=== PATIENT | female | born 1945 | race Caucasian/White ===

== ENCOUNTER 2016-06-09 01:40 | Inpatient (IN) | payer OTHER, MEDICARE ==
[~2016-06-09] VITALS: Ht 157.5 cm; Wt 116.7 kg
[~2016-06-09 01:40] MED LIST: ALDACTONE25 MG PO; ATIVAN0.5 MG PO; ATROVENT HFA 121 PUF INH; BABY ASPIRIN CH81 MG PO; BENZONATATE200 MG PO; BUPROPION HCL300 MG PO; CALCIUM CARB PO; CETIRIZINE HCL10 MG PO; COLACE100 MG PO; DEXILANT60 MG PO; DILAUDID 4 MG TA4 MG PO; FOLIC ACID0.4 MG PO; FUROSEMIDE20 MG PO; FUROSEMIDE40 MG PO; HYDROXYCHLOROQ200 MG PO; IMIPRAMINE PAMOATE 75 MG PO; IMIPRAMINE25 MG PO; IPRATROPIUM BRO15 ML NASB; K-DUR 20MEQ TA20 MEQ PO; LEVOTHYROXINE0.05 MG PO; LIDODERM 5% PAT1 PAT TOP; LINZESS290 MCG PO; LYRICA150 MG PO; MYRBETRIQ25 MG PO; OXYBUTYNIN5 MG PO; PATADAY 2.5 ML2.5 ML OPH; SINGULAIR10 MG PO; SMZ-TMP 800 MG-1 TAB PO; THERA1 TAB PO; TIZANIDINE HCL4 M1 PO; TRAVATAN Z50 GTT/1 B OPH; TRAZODONE100 MG PO; TRAZODONE150 MG PO; TUMS500 MG PO; VENLAFAXINE HY150 MG PO; WELCHOL 625 MG625 MG PO
--- NOTE | 2016-06-09 01:49 | ED DYSPNEA/ASTHMA COMPLAINT ---
History of Present Illness General Chief Complaint: General Adult Stated Complaint: AMS AND DYSPNEA Source: patient, old records, EMS, W10 Exam Limitations: clinical condition Vital Signs & Intake/Output Vital Signs & Intake/Output Vital Signs Date Time Temp Pulse Resp B/P Pulse O2 O2 Flow FiO2 Ox Delivery Rate 06/10 315 101.0 06/10 315 144/67 06/09 0230 99 Aerosol Mask 06/10 227 99 Venti Mask 6.0L 06/09 216 98 Aerosol 6.0L Mask 06/09 213 101.0 117 24 110/62 100 Aerosol 6.0L Mask Allergies Coded Allergies: adhesive tape (UNKNOWN 06/09/16) Reconcile Medications Aspirin (Children's Aspirin) 81 MG TAB.CHEW 1 TAB PO DAILY HEART HEALTH ( Reported) BUPROPION HCL (Bupropion XL) 300 MG TAB.ER.24H 1 TAB PO DAILY DEPRESSION ( Reported) Calcium Carbonate (Tums) 500 MG CTB 1 TAB PO DAILY GI (Reported) CETIRIZINE HCL (Cetirizine HCl) 10 MG TABLET 1 TAB PO DAILY ALLERGIES ( Reported) Colesevelam Hydrochloride (Welchol) 625 MG TABLET 3 TAB PO BID HIGH CHOLESTROL (Reported) Dexlansoprazole (Dexilant) 60 MG CAP.DR.BP 1 CAP PO BID GI (Reported) Docusate Sodium (Colace) 100 MG CAPSULE 1 TAB PO DAILY STOOL SOFTENER ( Reported) Folic Acid 0.4 MG TAB 2 TAB PO DAILY VITAMIN (Reported) Furosemide 40 MG TAB 1 TAB PO DAILY WATER PILL (Reported) Hydromorphone (Dilaudid) 4 MG TABLET 1 TAB PO Q6-PRN PRN PAIN (Reported) Hydroxychloroquine Sulfate 200 MG TABLET 1 TAB PO BID ARTHRITIS (Reported) IMIPRAMINE HCL (Imipramine HCl) 25 MG TABLET 1 TAB PO DAILY ANTIDEPRESSENT ( Reported) Imipramine Pamoate (Imipramine Pm) 75 MG CAP 1 CAP PO AT BEDTIME DEPRESSION ( Reported) Ipratropium [place] (Atrovent HFA 12.9 GMS) 17 MCG/ACTUATION HFA.AER.AD 0.06 % INH BID BREATHING (Reported) Levothyroxine Sodium 50 MCG TABLET 1 TAB PO DAILY AC HYPOTHROID (Reported) Lidocaine HCl (Lidoderm Patch) 5 % PAT 1 PAT TOP DAILY PAIN (Reported) may wear up to 12 hours Linaclotide (Linzess) 290 MCG CAP 1 CAP PO DAILY IBS (Reported) Lorazepam (Ativan) 0.5 MG TAB 1 TAB PO AT BEDTIME SLEEP (Reported) Mirabegron (Myrbetriq) [address] TAB PO DAILY BLADDER (Reported) Montelukast Sodium (Singulair) 10 MG TABLET 1 TAB PO DAILY ALLERGIES ( Reported) MULTIVITAMINS,THERAPEUTIC (Thera) 1 TAB TAB 1 TAB PO DAILY SUPPLEMENT ( Reported) OLOPATADINE HCL (Pataday 2.5 Ml) 2.5 ML SUSHIL 1 GTT OPH DAILY EYE (Reported) Oxybutynin Chloride 5 MG TABLET 1 TAB PO BID OVERACTIVE BLADDER (Reported) POTASSIUM CHLORIDE (K-Dur) 20 MEQ TAB.ER.PRT 1 TAB PO BID VITAMIN (Reported) Pregabalin (Lyrica) 150 MG CAPSULE 1 CAP PO TID PAIN (Reported) Spironolactone (Aldactone 25 MG Tablet) 25 MG TABLET 0.5 TAB PO AT BEDTIME HTN (Reported) TIZANIDINE HCL (Tizanidine HCl) 4 MG TABLET 1 TAB PO TID MUSCLE SPASMS ( Reported) Travoprost (Travatan Z Oph Sushil 0.004% 2.5ML) 0.004 % DROPS 1 GTT OPH QPM DRY (Reported) TRAZODONE HCL (Trazodone HCl) 150 MG TAB 1 TAB PO QPM SLEEP (Reported) VENLAFAXINE HCL (Venlafaxine HCl ER) 150 MG CAP.ER.24H 225 MG PO DAILY DEPRESSION (Reported) Triage Nurses Notes Reviewed? yes Onset: Gradual Duration: hour(s): Timing: recent history Severity: severe Activities at Onset: none Prior Episodes/Possible Cause: occasional episodes Modifying Factors: Improves With: rest. Worsens With: movement. Associated Symptoms: cough, wheezing HPI: 70-year-old woman history COPD and CHF presents with dyspnea, wheezing for the past several hours. Per the medics, she was fine last night. In the middle the night, the staff noted that she was dyspneic, tachypnea, with an O2 sat of 71%. She also showed increased lethargy. She denies fever chest pain. She is otherwise well. Past History Travel History Traveled to [place] past 21 day No Medical History Any Pertinent Medical History? 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 No Review of Systems Review of Systems Constitutional: Reports: no symptoms. EENTM: Reports: no symptoms. Respiratory: Reports: no symptoms. Cardiovascular: Reports: no symptoms. GI: Reports: no symptoms. Genitourinary: Reports: no symptoms. Musculoskeletal: Reports: no symptoms. Skin: Reports: no symptoms. Neurological/Psychological: Reports: no symptoms. Hematologic/Endocrine: Reports: no symptoms. Immunologic/Allergic: Reports: no symptoms. All Other Systems: Reviewed and Negative Physical Exam Physical Exam Head: atraumatic, normal appearance Eyes: Bilateral: normal appearance. Ears, Nose, Throat: normal pharynx Neck: normal inspection, supple Respiratory: decreased breath sounds, accessory muscle use, wheezing, respiratory distress Cardiovascular: regular rate/rhythm Gastrointestinal: normal bowel sounds, soft, non-tender, no organomegaly Extremities: ulcerations on left medial malleolus, no sign of active infection. 2-3+ edema bilaterally. Neurologic/Psych: no motor/sensory deficits, awake, alert, oriented x 3 Skin: intact, normal color, warm/dry Core Measures ACS in differential dx? No Severe Sepsis Present: No Septic Shock Present: No Progress Differential Diagnosis: asthma, AMI, bronchitis, CHF, COPD, pneumonia Plan of Care: Orders Procedure Date/time Status LACTIC ACID 06/09 0446 Active BLOOD CULTURE 06/09 0150 Active ARTERIAL BLOOD GAS (GEN) 06/09 014 Complete BLOOD CULTURE 06/09 0146 Active TROPONIN LEVEL 06/09 0146 Complete LACTIC ACID 06/09 0146 Complete COMPREHENSIVE METABOLIC PANEL 06/09 0146 Complete CBC WITHOUT DIFFERENTIAL 06/09 014 Complete B-TYPE NATRIURETIC PEP (BNP) 06/09 014 Complete EKG 06/09 0142 Active Current Medications Sig/[place]ula Start time Last Medication Dose Stop Time Status Admin Vancomycin HCl 1,000 MG ONCE ONE 06/09 0400 AC Dextrose/Water 250 ML 06/09 0459 (D5W) Laboratory Tests 06/09/16 020: pH 7.41, pCO2 30 L, pO2 84, HCO3 19 L, ABG O2 Sat (Measured) 97.0, P-50 (Temp Corrected) N, Carboxyhemoglobin 0.2 L, O2 Concentration % 6L, O2 Delivery Method NEB RX, Anion Gap 14, Estimated GFR > 60, BUN/Creatinine Ratio 17.1, Glucose 94, Lactic Acid 2.8 H, Calcium 9.6, Total Bilirubin 0.5, AST 57 H, ALT 78 H, Alkaline Phosphatase 346 H, Troponin I 0.05, Ttc-O-Gszkvpqgpoi Pept 379 H, Total Protein 7.5, Albumin 4.2, Globulin 3.3, Albumin/Globulin Ratio 1.3, CBC w Diff MAN DIFF ORDERED, RBC 4.88, MCV 79.2 L, MCH 25.1 L, RDW 15.9 H, MPV 8.7, Gran % 91.0 H, Lymphocytes % 5.2 L, Monocytes % 1.9, Eosinophils % 1.5, Basophils % 0.4, Absolute Granulocytes 17.4 H, Segmented Neutrophils 89 H, Band Neutrophils 2, Absolute Lymphocytes 1.0 L, Lymphocytes 6 L, Monocytes 1 L, Absolute Monocytes 0.4, Eosinophils 2, Absolute Eosinophils 0.3, Absolute Basophils 0.1, Platelet Estimate ADEQUATE, Hypochromic-Microcytic 1+, Poikilocytosis 1+, Anisocytosis 1+, Microcytic Cells 1+, Ovalocytes 1+, PUBS MCHC 31.7 L, Phlebotomy Draw Site RIGHT RADIAL, Fld Total RBCs Counted 100 Microbiology 06/09 204 BLOOD: Blood Culture - RECD 06/09 199 BLOOD: Blood Culture - RECD Diagnostic Imaging: Viewed by Me: Radiology Read. Discussed w/RAD: Radiology Read. CXR Impression: atelectasis vs edema vs infiltrate vs low volumes... full report below. Initial ED EKG: normal axis, normal intervals, normal p-waves, normal QRS complex, normal sinus rhythm Comments: PATIENT: VITO SMITH PRESENT AGE: 70 PATIENT ACCOUNT NO: [id number] : 44 LOCATION: [facility] ORDERING PHYSICIAN: ZAFAR BANG MD SERVICE DATE: 06/09/16 EXAM TYPE: RAD - XRY-PORTABLE CHEST XRAY EXAMINATION: XR PORTABLE CHEST CLINICAL INFORMATION: Hypoxia COMPARISON: Chest x-ray 01/03/2014 TECHNIQUE: Portable AP view of the chest was obtained. FINDINGS: Markedly low lung volumes with linear bibasilar opacities that most likely reflect atelectasis. No definite pneumothorax. There is central vascular congestion and I cannot exclude mild interstitial edema. Nondiagnostic assessment of the cardiac silhouette given technique and low lung volumes. There are no acute osseous findings. Multiple old healed right-sided rib fractures. IMPRESSION: Limited study with markedly low lung volumes and probable bibasilar atelectasis. There is central vascular congestion and I cannot exclude mild interstitial edema. DICTATED BY: ADAL PARRA MD DATE/TIME DICTATED:06/09/16240 ROOFING SUPERINTENDENT:TYRELL DATE/TIME TRANSCRIBED:06/09/16240 CONFIDENTIAL, DO NOT COPY WITHOUT APPROPRIATE AUTHORIZATION. <Electronically signed in Other Vendor System> SIGNED BY: ADAL PARRA MD 06/09/16245 Departure Departure Disposition: STILL A PATIENT Condition: Stable Clinical Impression Primary Impression: COPD exacerbation Secondary Impressions: CHF (congestive heart failure), Lactic acidosis, Sepsis Referrals: DERICK MARTINEZ MD Departure Forms: Customer Survey General Discharge Information Admission Note Spoke With: ALEXANDRIA HERNANDEZ MD Documentation of Exam: Documentation of any treatments & extenuating circumstances including Concerns Regarding Discharge (functional status, medication knowledge or non-compliance, living conditions, etc.) that warrant an admission rather than observation: Pt with copd, perhaps component of chf, with profound hypoxia at ecf, elevated wbc count, c/w sepsis.... pt merits abx, continuous 02 monitoring, rule out, nebs, steroids, lasix. Critical Care Note Critical Care Note Critical Care Time: 30-74 min
[2016-06-09 02:14] LABS: ABSOLUTE BASOPHIL COUNT 0.1 /CUMM (0.0-0.2); ABSOLUTE EOSINOPHIL COUNT 0.3 /CUMM (0.0-0.7); ABSOLUTE GRANULOCYTE CT 17.4 /CUMM (1.4-6.5); ABSOLUTE MONOCYTE COUNT 0.4 /CUMM (0.10-0.60); BASOPHIL % 0.4 % (0.0-2.0); EOSINOPHIL % 1.5 % (0-5); HEMATOCRIT 38.7 % (37-47); MEAN CORPUSCULAR HGB 25.1 PG (27.0-31.0); MEAN CORPUSCULAR HGB CONC 31.7 G/DL (33.0-37.0); MEAN CORPUSCULAR VOLUME 79.2 FL (81.0-99.0); MEAN PLATELET VOLUME 8.7 FL (7.4-10.4); PLATELET COUNT 262 /CUMM (130-400); RBC DISTRIBUTION WIDTH 15.9 % (11.5-14.5); RED BLOOD CELL CT 4.88 /CUMM (4.20-5.40); WHITE BLOOD CELL COUNT 19.1 /CUMM (4.8-10.8)
--- NOTE | 2016-06-09 02:21 | NUR ---
RESPIRATORY CALLED AND AT BEDSIDE ADMINISTERING NEB TREATMENT.
--- NOTE | 2016-06-09 02:21 | NUR ---
PT KIMOA FROM [facility] C/O AMS/DSYPNEA. PT ARRIVED ON NEB TREATMENT PER MEDIC PT WENT TO BED AROUND 2230 A&OX3, FOUND AT 0030 WITH A&0X1. PT HAD DIFFICULTY BREATHING WITH 02 SAT RA LOW 80'S. PT HAD 1 NEB TREATMENT EN ROUTE. PT HAS HX OF COPD, ASTHMA AND NEUROPATHY. PER RN ROBBIE FROM [facility] PT HAS HX OF MRSA WITH NO OPEN WOUNDS, PT ARRIVED WITH RED MATIAS/NEW FORMLY SCABS ON LEFT ARM WITH BILATERAL LEG WOUNDS DRAINING WRAPPED IN WILL WRAP. PT IS NORMALLY INDEPEPDENT AT [facility] WITH ASSIST OF WALKER. DR BANG AT BEDSIDE FOR EVAL , THIS RN ESTABLISHED 2 IV ACCESS SITES. SITE #1 RH #22 AND LAC #20. BLOOD CULTURES AND LABS DRAWN AND SENT BY JASWANT ANDERSON. (LAV, BLUE, MROEIRA, SST)
--- NOTE | 2016-06-09 02:21 | NUR ---
PT MEDICATED WITH 125MG SOLU MEDROL, 40MG LASIX, 500MG ZITHRO INFUSING AT 250ML/HR, AND 1G ROCPEHIN PER EMAR.
--- NOTE | 2016-06-09 02:46 | RADIOLOGY REPORT ---
EXAMINATION: XR PORTABLE CHEST CLINICAL INFORMATION: Hypoxia COMPARISON: Chest x-ray 01/03/2014 TECHNIQUE: Portable AP view of the chest was obtained. FINDINGS: Markedly low lung volumes with linear bibasilar opacities that most likely reflect atelectasis. No definite pneumothorax. There is central vascular congestion and I cannot exclude mild interstitial edema. Nondiagnostic assessment of the cardiac silhouette given technique and low lung volumes. There are no acute osseous findings. Multiple old healed right-sided rib fractures. IMPRESSION: Limited study with markedly low lung volumes and probable bibasilar atelectasis. There is central vascular congestion and I cannot exclude mild interstitial edema.
--- NOTE | 2016-06-09 02:59 | NUR ---
PT MEDICATED WITH IV TLYENOL FOR TEMP 101.0. RN VENICE AND MST SONNY ROLLED AND CHANGED PT, PT PLACED ON PADS. PTS SKIN ON BACK SIDE IS WNL, PT HAS MULTIPLE DIME AND QUARTER SIZE WOUNDS TO BILATERAL LEGS THAT WERE WRAPPED IN WILL BANDAGES WEEPING.
--- NOTE | 2016-06-09 04:18 | NUR ---
DR SMITH IN FOR EVAL
--- NOTE | 2016-06-09 04:40 | NUR ---
PT SIGNED IPAD FOR CRUTCHES AND DEMONSTRATED SHE CAN USE THEM BEFORE PT LEAVES. PT FELT NAUSEAOUS AND VOMITTED IN BUCKET IN RM. THIS RN MEDICATED PT WITH ZOFRAN OTD 4MG PER EMAR. PT VERBALIZED D/C INSTRCUTIONS, SCRIPTS SENT TO [facility] FOR IBUPROFEN, PERCOCET, AND ZOFRAN.
--- NOTE | 2016-06-09 04:47 | NUR ---
HOUSE STAFF IN RM , PT HAS (2) 1 QUARTER AND 1 DIME SIZE OPEN WOUNDS ON PTS RIGHT PRIETO. PT HAS (1) SIZE OF 2 QUARTERS ON LEFT PRIETO.
--- NOTE | 2016-06-09 05:41 | History & Physical ---
THAO MIN MD 06/09/16 0511: General Information and HPI MD Statement: I have seen and personally examined VITO SMITH and documented this H&P. The patient is a 70 year old F sent in from [place] for evaluation of hypoxia. Source of Information: patient Exam Limitations: clinical condition History of Present Illness: 70 year old woman with significant past medical history of CHF, COPD, CAD, and Bipolar disorder sent in from [place] for evaluation of altered mental status and hypoxia. History of present illness unobtainable from patient due to clinical condition. W10 and EMS records demonstrate hypoxia to "low 80s". Patient is reportedly independent at baseline and ambulates with a walker. Currently she is not oriented to person, place, or time. Review of systems is mostly unobtainable, she reports some pain with urination for the past day but otherwise is not answering questions appropriately. PMHx: CHF, COPD, CAD, Bipolar disorder, HONG, Hypothyroidism, Asthma, W[place], PVD, HONG, PE s/p IVC filter, Chronic low back pain s/p neurostimulator, hypertension, rheumatoid arthritis Allergies/Medications Allergies: Coded Allergies: adhesive tape (UNKNOWN 06/09/16) Past History Travel History Traveled to [facility] past 21 day No Medical History Neurological: NONE EENT: NONE Cardiovascular: CAD, CHF, chronic venous insuff, hypertension, myocardial infarction, PVD, W[place] Respiratory: asthma, COPD, obstructive sleep apnea, pulmonary embolism Gastrointestinal: NONE Hepatic: NONE Renal: NONE Musculoskeletal: chronic back pain, rheumatoid arthritis Psychiatric: bipolar disease Endocrine: hypothyroidism Blood Disorders: NONE Cancer(s): NONE 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 Exam & Diagnostic Data Last 24 Hrs of Vital Signs/I&O Vital Signs Date Time Temp Pulse Resp B/P Pulse O2 O2 Flow FiO2 Ox Delivery Rate 06/09 0446 100.4 06/09 0418 100.8 06/09 0316 101.0 06/09 0316 144/67 06/09 0230 99 Aerosol Mask 06/09 0228 99 Venti Mask 6.0L 06/09 216 98 Aerosol 6.0L Mask 06/09 0214 101.0 117 24 110/62 100 Aerosol 6.0L Mask Intake & Output 06/09 0800 06/09 0000 06/08 1600 Intake Total Output Total Balance Patient 117.934 kg Weight Physical Exam General Appearance Moderate Distress Skin Multiple venous wounds on lower extremities, Chronic lower extremity skin changes HEENT Atraumatic, PERRLA, EOMI, Mucous Membr. moist/pink Neck Supple Cardiovascular Regular Rate, Normal S1, Normal S2, No Murmurs, Distant heart sounds Lungs minimal bibasilar crackles, limited exam secondary to body habitus Abdomen Normal Bowel Sounds, Soft, No Tenderness, No Hepatospenomegaly, No Masses Neurological Disoriented, awake, in moderate distress, no obvious neurologic deficits, CN II - XII grossly intact Extremities No Clubbing, No Cyanosis, No Edema, Normal Pulses, No Tenderness/ Swelling Vascular Normal Pulses, Pulses Symmetrical Last 24 Hrs of Labs/Gene: Laboratory Tests 06/09/16 0505: Lactic Acid Pending 06/09/16 0200: pH 7.41, pCO2 30 L, pO2 84, HCO3 19 L, ABG O2 Sat (Measured) 97.0, P-50 (Temp Corrected) N, Carboxyhemoglobin 0.2 L, O2 Concentration % 6L, O2 Delivery Method NEB RX, Anion Gap 14, Estimated GFR > 60, BUN/Creatinine Ratio 17.1, Glucose 94, Lactic Acid 2.8 H, Calcium 9.6, Total Bilirubin 0.5, AST 57 H, ALT 78 H, Alkaline Phosphatase 346 H, Troponin I 0.05, Anu-Q-Vxgulgkwhzo Pept 379 H, Total Protein 7.5, Albumin 4.2, Globulin 3.3, Albumin/Globulin Ratio 1.3, CBC w Diff MAN DIFF ORDERED, RBC 4.88, MCV 79.2 L, MCH 25.1 L, RDW 15.9 H, MPV 8.7, Gran % 91.0 H, Lymphocytes % 5.2 L, Monocytes % 1.9, Eosinophils % 1.5, Basophils % 0.4, Absolute Granulocytes 17.4 H, Segmented Neutrophils 89 H, Band Neutrophils 2, Absolute Lymphocytes 1.0 L, Lymphocytes 6 L, Monocytes 1 L, Absolute Monocytes 0.4, Eosinophils 2, Absolute Eosinophils 0.3, Absolute Basophils 0.1, Platelet Estimate ADEQUATE, Hypochromic-Microcytic 1+, Poikilocytosis 1+, Anisocytosis 1+, Microcytic Cells 1+, Ovalocytes 1+, PUBS MCHC 31.7 L, Phlebotomy Draw Site RIGHT RADIAL, Fld Total RBCs Counted 100 Microbiology 06/09 0506 URINE ROUT: Urine Culture - ORD 06/09 0205 BLOOD: Blood Culture - RECD 06/09 020 BLOOD: Blood Culture - RECD Diagnostic Data CXR Results Limited study with markedly low lung volumes and probable bibasilar atelectasis. There is central vascular congestion cannot exclude mild interstitial edema. Assessment/Plan Assessment: 70 year old woman with multiple medical problems sent in from evaluation from [place] for altered mental status and dyspnea. Collateral information obtained from nursing staff reveals that patient is independent and ambulates with assistance of a walker at the [place] at baseline. She was observed to be confused with breathing difficulty with a reported pulse ox of "low 80s" for which she was sent in to the [place] ED for evaluation. Vital signs on initial evaluation are significant for temp 101.8, HR 117, RR 24, BP 110-114/62-67, pO2 98-100% on 6.0L via VentiMask. Physical examination demonstrates an obese elderly woman in moderate distress not oriented to person/place/time with distant heart sounds and bibasilar crackles with a nontender abdomen and multiple bilateral lower extremity wounds with skins changes and a mild rash. CBC is significant for leukocytosis without bands and serum chemistries are within normal limits. Lactic acid 2.8, Troponin 0.05, AST/ ALT 57/78, ALK 346, BNP 379. ABG pH 7.41/ CO2 30 / O2 84 / HCO3 19. CXR is limited with markedly low lung volumes and bibasiler atelectasis and central vasculr congestion possibly suggestive of interstitial edema. History of present illness is limited due to patients clinical condition, but objective observation demosntrates that patient meets Criteria for SIRS/Sepsis of unknown origin. Patient received multiple breathing treatments, intravenous steroids, lasix, and multiple intravenous antibiotics in the ED. Patient is to be admitted to the intensive care unit for futher evaluation and care. SIRS/Sepsis/Metabolic Encephalopathy Reportedly hypoxic to "low 80s" in the field. Saturating adequately on 6.0L supplemental oxygen. ABG demonstrates respiratory compensation without any overt acidosis. CXR is indeterminant for any active infectious process. Transaminases are mildly elevated, however patient has a history of a cholecystectomy. Patient complains of mild urinary discomfort. Rash present on lower extremities with multiple open wounds may possible be source of infection. -Intensive Care unit -RUQ Ultrasound -XR right ankle -XR left tibia/fibula -Vancomycin 1g IV Daily -Blood/Urine Cutures -Wound consult -Trend Lactic Acid until normalizes -F/U Lipase, CPK, UA History of Congestive Heart Failure -Strict I&Os -Hold Lasix -Spironolactone 12.5mg PO QHS History of COPD Patient of Dr. Hassan. Not currently in exacerbation. No wheezing. -TRC -Albuterol/Atrovent -No steroids Hypertension - monitor for unstable blood pressures Hyperlipidemia - Welchol 625mg 3 TAB PO BID History of Pulmonary Embolism s/p IVC Filter - stable Bipolar Disorder - Holding psych meds, restart as tolerated CAD/Hx of [place] - Aspirin 81mg PO Daily Hypothyroidism - Levvothyroxin 50mcg PO Daily Rheumatoid Arthritis - Hydroxychloroquine 200mg PO BID Asthma -Cetirizine 10mg PO Daily, Singular Chronic low back pain s/p Neurostimulator - Lidocaine Patch Pain Plan - Acetaminophen Bowel Regimen - Colace DVT PPx - Heparin Diet - NPO Code Status - DNR/DNI As Ranked By This Provider Problem List: 1. Sepsis 2. Lactic acidosis Core Measures/Miscellaneous Acute Coronary Syndrome ACS Diagnosis: No Cerebrovascular Accident CVA/TIA Diagnosis: No Congestive Heart Failure CHF Diagnosis: No Venous Thromboembolism VTE Risk Factors: Acute medical illness, Age > 40, Obesity No [facility] VTE prophylaxis d/t: LE Injury, current No VTE Pharm Prophylaxis d/t: No contraindications VTE Diagnosis: No VTE Type: NONE VTE Confirmed by (Test): NONE Severe Sepsis Severe Sepsis Present: No Septic Shock Septic Shock Present: No Miscellaneous Documentation Attending Case Discussed With: ALEXANDRIA HERNANDEZ MD Primary Care Physician: MARA HANSEN MD Patient sees these Specialists Dr. Sonya Gottlieb Level of Patient Care: Critical Care (CRI) DANILO DUARTE 06/09/16 0540: General Information and HPI Allergies/Medications Home Med list Aspirin (Children's Aspirin) 81 MG TAB.CHEW 1 TAB PO DAILY HEART HEALTH ( Reported) Brinzolamide/Brimonidine Tart (Simbrinza 1%-0.2% Eye Drops) 1 %-0.2 % DROPS.SUSP 1 DROP TOP BID EYE (Reported) BUPROPION HCL (Bupropion XL) 300 MG TAB.ER.24H 1 TAB PO DAILY DEPRESSION ( Reported) CETIRIZINE HCL (Cetirizine HCl) 10 MG TABLET 1 TAB PO DAILY ALLERGIES ( Reported) Dexlansoprazole (Dexilant) 60 MG CAP.DR.BP 1 CAP PO BID GI (Reported) Docusate Sodium (Colace) 100 MG CAPSULE 1 TAB PO DAILY STOOL SOFTENER ( Reported) Folic Acid 0.4 MG TAB 2 TAB PO DAILY VITAMIN (Reported) Furosemide 40 MG TAB 1 TAB PO DAILY WATER PILL (Reported) Hydroxychloroquine Sulfate 200 MG TABLET 1 TAB PO BID ARTHRITIS (Reported) IMIPRAMINE HCL (Imipramine HCl) 25 MG TABLET 1 TAB PO DAILY ANTIDEPRESSENT ( Reported) Imipramine Pamoate (Imipramine Pm) 75 MG CAP 1 CAP PO AT BEDTIME DEPRESSION ( Reported) Ipratropium Hudson (Atrovent HFA 12.9 GMS) 17 MCG/ACTUATION HFA.AER.AD 0.06 % INH BID BREATHING (Reported) Levothyroxine Sodium 50 MCG TABLET 1 TAB PO DAILY AC HYPOTHROID (Reported) Linaclotide (Linzess) 290 MCG CAP 1 CAP PO DAILY IBS (Reported) Lorazepam (Ativan) 0.5 MG TAB 1 TAB PO AT BEDTIME SLEEP (Reported) Mirabegron (Myrbetriq) [address] TAB PO DAILY BLADDER (Reported) Montelukast Sodium (Singulair) 10 MG TABLET 1 TAB PO DAILY ALLERGIES ( Reported) Morphine Sulfate (Morphine Sulfate ER) 30 MG TABLET.ER 1 TAB PO Q12 PAIN ( Reported) MULTIVITAMINS,THERAPEUTIC (Thera) 1 TAB TAB 1 TAB PO DAILY SUPPLEMENT ( Reported) POTASSIUM CHLORIDE (K-Dur) 20 MEQ TAB.ER.PRT 1 TAB PO BID VITAMIN (Reported) Pregabalin (Lyrica) 300 MG CAPSULE 1 CAP PO AT BEDTIME NEUROPATHY (Reported) Pregabalin (Lyrica) 75 MG CAPSULE 1 CAP PO BID NEUROPATHY (Reported) 6 AM AND 5 PM Sennosides/Docusate Sodium (Senokot-S Tablet) 8.6 MG-50 MG TABLET 1 TAB PO DAILY CONSTIPATION (Reported) AT 9 AM Spironolactone (Aldactone) 25 MG TABLET 1 TAB PO AT BED TIME WATER PILL ( Reported) Tizanidine HCl 4 MG TABLET 1 TAB PO BID MUSCLE SPASMS (Reported) MORNING AND NOON Tizanidine HCl 4 MG TABLET 2 TAB PO QPM MUSCLE SPASMS (Reported) Travoprost (Travatan Z Oph Donna 0.004% 2.5ML) 0.004 % DROPS 1 GTT OPH QPM DRY (Reported) TRAZODONE HCL (Trazodone HCl) 150 MG TAB 1 TAB PO QPM SLEEP (Reported) Venlafaxine HCl (Effexor XR) 150 MG CAP.ER.24H 2 CAP PO DAILY DEPRESSION ( Reported) Resident Review Statement Resident Statement: examined this patient, discussed with training intern, agreed with training intern Other Findings: Patient is 70 year old female with PMH of CHF, rheumatoid arthritis, CAD, hypothyroidism, chronic pain syndrome, mood disorder, anxiety disorder, dysuria, major depressive disorder, COPD, pancreatitis, was brought from [facility] with chief complain of altered mental status and shivering. In ER, patient spiked a fever of 101 and was tachyoenic, her labs were significant for leukocytosis of 19 and she had elevated lactic acid of 2.8. In ER, she was given Ceftriaxone, Azithromycin and Vancomycin in addition to loading dose of solumedrol and 40 IV lasix. Labs and Vitals as above Physical exam: Deep wounds appreciated on medial aspect of right ankle and jesus of left tibia. B/l bibasilar crackles. Distant S1, S2 due to body habitus. CXR: Limited study with markedly low lung volumes and probable bibasilar atelectasis. There is central vascular congestion and I cannot exclude mild interstitial edema. Assessment and Plan Patient has leukocytosis and fever due to a primary source of infectious which could be due to infected b/l lower extremety skin wounds, pneumonia or UTI ( as she reports burning micturation since yesterday, UA pending). Will start her on IV vancomycin daily. Trend her CBC for leukocytosis. Will obtain xray of b/l lower extremeties to evaluate for underlying osteomyelitis. Will follow up BC, Urine culture and rapid flu. WIll get wound consult in am. Elevated Alkaline phosphatase- could be secondary to any biliary pathology v/s osteomyelitis. Will obtain limited right upper quadrant usg to evaluate for CBD stone etc. Patient has a history of Anxiety and Major depressive disorder. She was still confused in ER during her encounter, please consider restarted her psyc meds once she is more awake and alert. Hx of CHF- Patient takes 40 PO lasix at home, holding off lasix right now due to uncertain volume status as patient might go into septic shock due to current sepsis. Will reasses her in am and consider restarting lasix. Will continue Hydroxychloroquin 200 mg tab for RA Will continue levothyroxine 50 mcg for hypothyroidism Patient takes lyrica for chronic pain, consider restarting in am if patient more alert For symptomatic SOB, TRC nebs as needed. DVT ppx SC heprin Patient is DNR/DNI MARYALEXANDRIA DAVIS 06/09/16 0555: Attending MD Review Statement Attending Statement Attending MD Statement: examined this patient, discuss w/resident/PA/[employer], agreed w/resident/PA/[employer], reviewed EMR data (avail), reviewed images, amended to note Attending Assessment/Plan: C: AMS, SOB PMH : Chronic pain, mood disorder, anxiety, HFrEF, COPD, HTN, hypothyroidism, CAD Patient was brought in from [facility] for altered mental status, shaking, low oxygen saturation. Patient currently on Ventimask and does not provide details. Vitals: Tmax 101, tachycardic at 117, tachypneic at 24, blood pressure 110/62, saturating 100% on 50% Ventimask. On examination: Alert, mucosa dry, JVD cannot be appreciated secondary to short neck, obese, difficult to auscultate but bibasilar crackles. Right upper quadrant abdominal tenderness, no Quiroz's sign, no guarding rigidity, bowel sounds present. CVS: S1-S2, RRR. Bilateral lower extremity has chronic venous stasis changes, was wrapped in compression at time of arrival. Left lower extremity has open wound on medial aspect jesus of tibia with evidence of cellulitis. Right lower extremity has ? Venous ulcer on medial aspect of ankle. Peripheral pulses perfusion normal. Labs: WBC 19.1, neutrophils 91%, band 2, hemoglobin 12.3, platelets 262, creatinine 0.7, lactic acid 2.8, AST 50, ALT 78, alkaline phosphatase 346, proBNP 379 CXR: Limited study with markedly low lung volumes and probable bibasilar atelectasis. There is central vascular congestion and I cannot exclude mild interstitial edema. A and P - Sepsis: Fever, leukocytosis, mildly elevated lactate, tachypnea, tachycardia, most likely bilateral lower extremity cellulitis with chronic wound is likely source of infection. Patient became tachypneic but chest x-ray does not reveal any consolidation. Patient has mild right upper quadrant tenderness, urinary frequency and burning: Another suspicion source. Blood culture, UA urine culture , right upper quadrant limited ultrasound to rule out choledocholithiasis. Trend lactate, continue vancomycin, wound care consult. X-ray of right ankle, left tibia-fibula. Add CPK and lipase to sample and lab. -Metabolic encephalopathy: Probably secondary to infection - Metabolic acidosis - Patient has decreased level of sensorium, along with sepsis: She will benefit close monitoring any ICU -patient has basilar crackles on examination, chest x-ray cannot rule out interstitial edema. proBNP is not significantly elevated at this time. Continue gentle hydration with 50 mL NS/hour, watch for volume status. Hold his scheduled Lasix, would benefit from IV Lasix as and when required, according to clinical assessment. Patient had history of heart failure with reduced ejection fraction. -Needs detailed med reconciliation, AMS is better as most of them are psychotropic and sedating medications. Continue thyroxine, hydroxychloroquine, folic acid, PPI, aspirin for now. - History of COPD: Currently no active wheezing, less Likely exacerbation, TRC and has required nebulization with albuterol and Atrovent, no IV steroids for now. - DNR, DNI. TTS 30 min
--- NOTE | 2016-06-09 06:38 | NUR ---
WOUND CARE PERFORMED BY SHIRLEY MILLARD PER HOUSE STAFF AND SHIRLEY HOPKINS DRESSED WOUNDS WITH BACITRACIN TELFA AND KRULEX. RIGHT LOWER EXTREMITY ANTERIOR (1) DIME SIZE (2) QUARTER SIZE. LEFT LOWER EXTREMITY ANTERIOR (1) SIZE OF 2 QUARTERS.
--- NOTE | 2016-06-09 06:47 | NUR ---
PT MEDICATED WITH 5000UNIT HEPARIN SC INJECTION IN THE RIGHT ABD. NS LITER #1 @ 50ML/HR INFUSING.
--- NOTE | 2016-06-09 06:51 | NUR ---
PT MEDICATED WITH 0.5MG SYNTHROID AND 20MG PRILOSEC PER EMAR.
--- NOTE | 2016-06-09 07:46 | NUR ---
PT TRANSFERRED TO ICU ON MONITOR WITH THIS RN. ALL PAPERWORK AND BELONGINGS SENT. CLINICAL STATUS UNCHANGED.
[2016-06-09 08:55] VITALS: BP 112/60
--- NOTE | 2016-06-09 09:48 | NUR ---
0830: RECEIVED PT FROM ER AT 0800. ALERT, ORIENTED X3. SLIGHTLY DROWSY. ON 50% VENTI MASK, LUNGS CLEAR, DIMINISHED AT BASES. SAT 94%. DENIES COUGH OR SOB. NSR/ST ON MONITOR. AFEBRILE. B/P STABLE. ABDOMEN OBESE, HYPOACTIVE BOWEL SOUNDS, PER PT SHE HAD A BM 3-3 WITH THE HELP OF A SUPPOSITORY, PT IS ON CHRONIC PAIN MEDICATIONS. NPO FOR SWALLOW EVAL. INCONTINENT OF URINE, PADS PLACED. BLE DRESSINGS TAKEN DOWN AND WOUNDS MEASURED, LEFT PRIETO 1.5 X 1.6, SMALL OPEN AREA TO UPPER PRIETO, LOOKS LIKE A POPPED WATER BLISTER, RIGHT ANKLE 2.5 X 2.0, RIGHT PRIETO 1.4 X 0.6, ALSO SMALL OPEN AREA THAT LOOKES LIKE A POPPED WATER BLISTER. ADAPTEC, TELFA, AND KERLIX PLACED, WOUND CARE EMAIL SENT. NO ALPS PLACED AT THIS TIME DUE TO WOUNDS, SIZEWISE MATTRESS ORDERED, BOTTOM INTACT. ABDOMINAL AND GROIN FOLDS EXAMINED, SMALL RED AREA TO LEFT ABDOMINAL FOLD. #22 RH AND #[address] NS @ 50 ML/HR. ABDOMINAL ULTRASOUND SCHEDULED FOR 11 AM. PT ORIENTED TO ROOM AND CALL ROSS. BED ALARM IN PLACE. PER [place] PT IS UTD ON FLU VACCINE. WILL MONITOR.
[2016-06-09 09:51] LABS: ABSOLUTE BASOPHIL COUNT 0 /CUMM (0.0-0.2); ABSOLUTE EOSINOPHIL COUNT 0 /CUMM (0.0-0.7); ABSOLUTE GRANULOCYTE CT 26.6 /CUMM (1.4-6.5); ABSOLUTE LYMPH COUNT 0.5 /CUMM (1.2-3.4); ABSOLUTE MONOCYTE COUNT 0.6 /CUMM (0.10-0.60); BASOPHIL % 0 % (0.0-2.0); EOSINOPHIL % 0 % (0-5); GRANULOCYTE % 96.1 % (42.2-75.2); MEAN CORPUSCULAR HGB 25.5 PG (27.0-31.0); MEAN CORPUSCULAR HGB CONC 32.2 G/DL (33.0-37.0); MEAN CORPUSCULAR VOLUME 79.1 FL (81.0-99.0); PLATELET COUNT 218 /CUMM (130-400); RBC DISTRIBUTION WIDTH 15.6 % (11.5-14.5); RED BLOOD CELL CT 4.42 /CUMM (4.20-5.40); WHITE BLOOD CELL COUNT 27.7 /CUMM (4.8-10.8)
--- NOTE | 2016-06-09 09:54 | NUR ---
+ BLOOD CULTURES DRAWN 3-4, 1 SET OF 2 GROWING GRAM + COCCI IN PAIRS AND CHAINS, HOUSESTAFF AWARE, SEE CRITICAL LAB VALUE DOCUMENTATION.
--- NOTE | 2016-06-09 10:19 | NUR ---
FLU SWAB DONE AND SENT BY THIS RN
--- NOTE | 2016-06-09 10:23 | NUR ---
TROPONIN WENT FROM 0.05 TO 0.14. MD SEAY AWARE.
--- NOTE | 2016-06-09 10:55 | NUR ---
STAT PT/INR DRAWN AND SENT BY THIS RN
--- NOTE | 2016-06-09 10:57 | RADIOLOGY REPORT ---
EXAMINATION: XR TIBIA AND FIBULA, LEFT CLINICAL INFORMATION: 70-year-old woman with deep venous ulcer over the anterior tibia. Assess for osteomyelitis. COMPARISON: None TECHNIQUE: AP and lateral views of the left tibia and fibula were obtained. FINDINGS: There is no evidence of acute fracture. Alignment remains anatomic. There is prominent soft tissue edema and swelling. However, no focal abnormal periosteal reaction, osteolysis, or soft tissue gas is seen to suggest osteomyelitis. IMPRESSION: No radiographic evidence of osteomyelitis.
--- NOTE | 2016-06-09 11:02 | RADIOLOGY REPORT ---
EXAMINATION: XR ANKLE, RIGHT CLINICAL INFORMATION: 70-year-old woman with deep venous ulcer on medial side of ankle. Evaluate for osteomyelitis. COMPARISON: None TECHNIQUE: AP, lateral, and mortise views of the right ankle. FINDINGS: There is no evidence of acute fracture. Alignment remains anatomic. There is diffuse soft tissue swelling and edema over the medial malleolus. On the lateral film, there is some cortical irregularity seen posteriorly that may represent mild periosteal reaction. In addition, on the oblique film, there is some rarefication of osseous matrix over the medial malleolus and the cortex itself is not well seen. There is no soft tissue gas. IMPRESSION: Indistinctness of the cortex over the medial malleolus and possible periosteal reaction both increase suspicion for possible osteomyelitis in the region of the patient's deep venous ulcer. Further assessment with 3 phase bone scan or contrast-enhanced MRI could provide a higher level of specificity.
--- NOTE | 2016-06-09 11:32 | NUR ---
ULTRASOUND AT BEDSIDE FOR ABDOMINAL ULTRASOUND. PT PLACED ON 5L NC AT THIS TIME BY RT SELF
--- NOTE | 2016-06-09 11:42 | PN- Resident CRCU ---
GERHARD MURO 06/09/16 1137: Subjective HPI/CRCU Issues: 1. Sepsis most likely secondary to possible osteomyelitis and cellulitis of right ankle vs HCAP. Blood cultures 2 are growing gram-positive cocci in pairs and chains. Respiratory system could be another source of sepsis. Chest x-ray not very impressive 2. Acute hypoxic respiratory failure requiring 6 L of oxygen initially and later on on 50% Ventimask. Differentials are either PE or HCAP 24 Hour Events: Patient is alert, awake and oriented. Her vitals are stable. Now she is on 5 L of oxygen via nasal cannula and oxygen saturation is 94%. She is not complaining of any chest pain or discomfort, nausea, vomiting, abdominal pain, any pain or burning upon micturition. Objective Vital Signs & I&O Last 8 Hrs of Vitals and I&O: Intake & Output 06/09 1600 Intake Total Output Total Balance Patient 259 lb Weight Exam General Appearance: alert, awake, obese Ears, Nose, Throat: dry mucous membranes Neck: supple Respiratory: lungs clear, decreased air entry bilaterally Cardiovascular: regular rate/rhythm Gastrointestinal: normal bowel sounds, soft, non-tender Extremities: 2 small venous ulcers on left leg and 1 small circular wound on medial malleolus of right ankle with surrounding erythema, warmth and tenderness. Cranial Nerves: normal speech Current Medications: Current Medications Sig/[place] Start time Last Medication Dose Route Stop Time Status Admin Acetaminophen 650 MG Q8P PRN 06/09 0545 AC PO Acetaminophen 1,000 MG ONCE ONE 06/09 0315 DC 06/09 N/A 1 UNIT IV 06/09 0329 0316 Acetaminophen 0 .STK-MED ONE 06/09 0255 DC IV Albuterol Sulfate 3 ML EVERY 4 HRS/AWAKE 06/09 1200 AC 06/09 INH 1101 Albuterol Sulfate 3 ML ONCE ONE 06/09 0215 DC 06/09 INH 06/09 0216 0216 Albuterol Sulfate 3 ML ONCE ONE 06/09 0215 DC 06/09 INH 06/09 0216 0216 Albuterol Sulfate 3 ML ONCE ONE 06/09 0145 DC 06/09 INH 06/09 0146 0210 Aspirin 81 MG DAILY 06/09 1000 AC PO Azithromycin 500 MG ONCE ONE 06/09 0200 DC 06/09 Dextrose/Water 250 ML IV 06/09 0259 0226 Ceftriaxone Sodium 0 .STK-MED ONE 06/09 0202 DC .ROUTE Ceftriaxone Sodium 1,000 MG ONCE ONE 06/09 0145 DC 06/09 IV 06/09 0146 0226 Folic Acid 1 MG DAILY 06/09 1000 AC PO Furosemide 0 .STK-MED ONE 06/09 0202 DC IV Furosemide 40 MG ONCE ONE 06/09 0200 DC 06/09 IV 06/09 0201 0226 Heparin Sodium 0 .STK-MED ONE 06/09 0644 DC (Porcine) .ROUTE Heparin Sodium 5,000 UNIT Q8 06/09 0600 AC 06/09 (Porcine) SC 0648 Hydroxychloroquine 200 MG BID 06/09 1000 AC Sulfate PO Ipratropium Foley 2.5 ML EVERY 4 HRS/AWAKE 06/09 1200 AC 06/09 INH 1101 Ipratropium Foley 2.5 ML ONCE ONE 06/09 0145 DC 06/09 INH 06/09 0146 0209 Ketorolac 15 MG Q8P PRN 06/09 0545 AC Tromethamine IV Levothyroxine Sodium 0.05 MG DAILY AC 06/09 0700 AC 06/09 PO 0651 Methylprednisolone 0 .STK-MED ONE 06/09 0202 DC .ROUTE Methylprednisolone 125 MG ONCE ONE 06/09 0145 DC 06/09 IV 06/09 0146 0226 Omeprazole 20 MG DAILY AC 06/09 0700 AC / PO 0651 Omeprazole 0 .STK-MED ONE 06/09 0644 DC PO Potassium Chloride 10 MEQ Q1H 06/09 1045 DC 06/09 IV /04 1146 1113 Sodium Chloride 500 ML BOLUS ONE 06/09 1145 AC / IV /04 1244 1157 Sodium Chloride 1,000 ML Q20H 06/09 0615 AC / IV 0648 Vancomycin HCl 1,000 MG DAILY@0430 /05 0430 AC Dextrose/Water 250 ML IV Vancomycin HCl 0 .STK-MED ONE 06/09 0411 DC .ROUTE Vancomycin HCl 1,000 MG ONCE ONE 06/09 0400 DC 06/09 Dextrose/Water 250 ML IV 06/09 0459 0423 Antibiotics Antibiotic: vancomycin Day #: 1 IV/PO? IV If IV, Change to PO? No Results Results: Gram-positive cocci in pairs and chains Cultures: Culture: blood culture Date: 06/09/16 Radiology Findings: Left tibiofibular x-ray and right ankle x-ray was done. Right ankle x-ray showed findings suggestive of possible osteomyelitis. 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 Sepsis most likely secondary to cellulitis and possible underlying osteomyelitis of right ankle. Other possibility could be sepsis secondary to pneumonia vs UTI. Patient has history of frequent urinary issues in past requiring PICCs. Blood cultures June 09 are growing gram-positive cocci in pairs and chains. Patient is still tachycardic and tachypneic. WBC count is 27.7 with 22 bands. Lactic acid has trended down from 2.8-1.9. 2. Acute hypoxic respiratory failure could be secondary to HCAP or PE. Patient was initially on 6 L of oxygen via nasal cannula and later on required Ventimask 50%. She got TRC nebs. Chest x-ray is showing limited study with markedly low lung volumes and probable bibasilar atelectasis. No consolidation. In ER she was also given IV ceftriaxone, azithromycin, vancomycin, Lasix and steroids. Currently She does not look like in fluid overload and lung exam is decreased air entry bilaterally without any wheezing and rales. She is on 5 L of oxygen via nasal cannula and oxygen saturation is 94%. ABGs on admission are pH 7.41, PCO2 30 and bicarbonate 19. D-dimer is 738 3. Elevated troponins without EKG changes. Most likely due to demand ischemia in the setting of sepsis. 4. Electrolyte abnormalities. Potassium 3.3 this morning 5. Transaminitis. Most likely due to sepsis and fatty liver disease. PLAN Monitor vitals closely. We will continue TRC nebs. Continue IV antibiotics, vancomycin for now. Follow-up blood cultures identification and sensitivities. We will get ID and pulm consult. We will get CTA of chest to rule out PE and look for any consolidation in lungs. Follow-up UA and urine culture. Podiatry consult appreciated. We will order bone scan as MRI cannot be done because of neurostimulator. Possible podiatry intervention on Saturday. Serial EKGs and troponins. Cardio consult. Repeat LFTs in a.m. Follow-up right upper quadrant ultrasound to see choledocholithiasis or any signs of inflammation. Check electrolytes daily and replete accordingly. Patient is nothing by mouth right now. Will do bedside swallow evaluation. We will start all her psych meds that were held on admission. Tylenol and IV Toradol for pain management. wound care. Subcutaneous heparin for DVT prophylaxis. Patient is DNR/DNI. Problem List: 1. Sepsis Pain Ratin Tomorrow's Labs & Rationales: icu bundle Plan DVT/Prophylaxis: pharmacological Code Status: Do Not Resucitate/Intubat JEFF WHITING MD 06/09/161918: Attending MD Review Statement Attending Sign Off Attending Cosign Statement: I have: examined this patient, reviewed [facility] EMR data, discussd w/resident/PA/ CREEL CLERK, agreed w/resident/PA/CREEL CLERK. Other Findings: Patient doing well today, though requiring initially 50% oxygen, now on 5L NC. Has a history of COPD, non-compliant with therapies. CTA chest negative for PE. Evidence of acute osteomyelitis of foot by x-ray. Has a history of recurrent UTIs. Blood cultures growing GPC. Plan - Continue Vancomycin - Bone scan - Follow ID and podiatry recommendations - Follow blood cultures - Titrate down oxygen as tolerated - Continue breathing treatments - Continue home medications - DVT PPx
[2016-06-09 12:00] VITALS: BP 110/60
[2016-06-09 12:10] LABS: PT 13.7 SEC (9.4-12.5)
--- NOTE | 2016-06-09 12:28 | Cons- Podiatry ---
General Information and HPI Consulting Request Date of Consult: 06/09/16 Requested By: ALEXANDRIA HERNANDEZ MD History of Present Illness: Oralia is a 70-year-old female with a signet ring and past medical history including COPD and CHF and coronary artery disease. The patient was transferred from [place] after she was found to be altered and hypoxic. The patient has no memory of the period her transfer and is unable to give any significant detail regarding the ulceration to her right ankle. The patient was noted on physical exam to have bilateral lower extremity lesions, which according to the patient had been present for approximately 2 months. Patient is seen as an outpatient with the vascular service for compression and was tentatively scheduled for venous ablation with Merritt Villafana. Patient's initial labs demonstrated a white count of 27,000 with 22 bands. Patient also has 2 positive blood cultures. Allergies/Medications Allergies: Coded Allergies: adhesive tape (UNKNOWN 06/09/16) Home Med List: Aspirin (Children's Aspirin) 81 MG TAB.CHEW 1 TAB PO DAILY HEART HEALTH ( Reported) BUPROPION HCL (Bupropion XL) 300 MG TAB.ER.24H 1 TAB PO DAILY DEPRESSION ( Reported) Calcium Carbonate (Tums) 500 MG CTB 1 TAB PO DAILY GI (Reported) CETIRIZINE HCL (Cetirizine HCl) 10 MG TABLET 1 TAB PO DAILY ALLERGIES ( Reported) Colesevelam Hydrochloride (Welchol) 625 MG TABLET 3 TAB PO BID HIGH CHOLESTROL (Reported) Dexlansoprazole (Dexilant) 60 MG CAP.DR.BP 1 CAP PO BID GI (Reported) Docusate Sodium (Colace) 100 MG CAPSULE 1 TAB PO DAILY STOOL SOFTENER ( Reported) Folic Acid 0.4 MG TAB 2 TAB PO DAILY VITAMIN (Reported) Furosemide 40 MG TAB 1 TAB PO DAILY WATER PILL (Reported) Hydromorphone (Dilaudid) 4 MG TABLET 1 TAB PO Q6-PRN PRN PAIN (Reported) Hydroxychloroquine Sulfate 200 MG TABLET 1 TAB PO BID ARTHRITIS (Reported) IMIPRAMINE HCL (Imipramine HCl) 25 MG TABLET 1 TAB PO DAILY ANTIDEPRESSENT ( Reported) Imipramine Pamoate (Imipramine Pm) 75 MG CAP 1 CAP PO AT BEDTIME DEPRESSION ( Reported) Ipratropium [place] (Atrovent HFA 12.9 GMS) 17 MCG/ACTUATION HFA.AER.AD 0.06 % INH BID BREATHING (Reported) Levothyroxine Sodium 50 MCG TABLET 1 TAB PO DAILY AC HYPOTHROID (Reported) Lidocaine HCl (Lidoderm Patch) 5 % PAT 1 PAT TOP DAILY PAIN (Reported) may wear up to 12 hours Linaclotide (Linzess) 290 MCG CAP 1 CAP PO DAILY IBS (Reported) Lorazepam (Ativan) 0.5 MG TAB 1 TAB PO AT BEDTIME SLEEP (Reported) Mirabegron (Myrbetriq) [address] TAB PO DAILY BLADDER (Reported) Montelukast Sodium (Singulair) 10 MG TABLET 1 TAB PO DAILY ALLERGIES ( Reported) MULTIVITAMINS,THERAPEUTIC (Thera) 1 TAB TAB 1 TAB PO DAILY SUPPLEMENT ( Reported) OLOPATADINE HCL (Pataday 2.5 Ml) 2.5 ML SUSHIL 1 GTT OPH DAILY EYE (Reported) Oxybutynin Chloride 5 MG TABLET 1 TAB PO BID OVERACTIVE BLADDER (Reported) POTASSIUM CHLORIDE (K-Dur) 20 MEQ TAB.ER.PRT 1 TAB PO BID VITAMIN (Reported) Pregabalin (Lyrica) 150 MG CAPSULE 1 CAP PO TID PAIN (Reported) Spironolactone (Aldactone 25 MG Tablet) 25 MG TABLET 0.5 TAB PO AT BEDTIME HTN (Reported) TIZANIDINE HCL (Tizanidine HCl) 4 MG TABLET 1 TAB PO TID MUSCLE SPASMS ( Reported) Travoprost (Travatan Z Oph Sushil 0.004% 2.5ML) 0.004 % DROPS 1 GTT OPH QPM DRY (Reported) TRAZODONE HCL (Trazodone HCl) 150 MG TAB 1 TAB PO QPM SLEEP (Reported) VENLAFAXINE HCL (Venlafaxine HCl ER) 150 MG CAP.ER.24H 225 MG PO DAILY DEPRESSION (Reported) Past History Medical History Neurological: NONE EENT: cataracts Cardiovascular: CAD, CHF, chronic venous insuff, hypertension, myocardial infarction, PVD Respiratory: asthma, COPD, obstructive sleep apnea, pulmonary embolism Gastrointestinal: pancreatitis Hepatic: NONE Renal: OVERACTIVE BLADDER Musculoskeletal: chronic back pain, rheumatoid arthritis Psychiatric: bipolar disease Endocrine: hypothyroidism Blood Disorders: NONE Cancer(s): NONE 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: [facility] Smoking Status: Former Smoker Review of Systems Review of Systems: Unremarkable except for that noted in history of present illness Exam & Diagnostic Data Vital Signs and I&O Vital Signs Date Time Temp Pulse Resp B/P Pulse O2 O2 Flow FiO2 Ox Delivery Rate 06/09 0855 94 Venti Mask 50% 06/09 0855 98.8 100 22 112/60 94 Venti Mask 50% / 0647 99.0 98 20 112/57 95 Venti Mask 50% /04 0446 100.4 03/ 0418 100.8 / 0316 101.0 03/ 0316 144/67 03/ 0230 99 Aerosol Mask / 0228 99 Venti Mask 6.0L / 0217 98 Aerosol 6.0L Mask / 0214 101.0 117 24 110/62 100 Aerosol 6.0L Mask Intake & Output / 1600 / 0800 03/04 0000 / 1600 06/08 0800 06/08 0000 Intake Total Output Total Balance Patient 259 lb 259 lb Weight Physical Exam: Nonpalpable pulses noted bilaterally. Patient with a 2 cm x 2 cm full-thickness ulceration noted overlying the medial malleolus. The wound bed is mixed slough and fibrosis. There is approximately 2-3 cm of cellulitis surrounding the lesion. Minimal serous drainage identified. Questionable fluctuance noted. Assessment/Plan Assessment/Plan Sepsis with right lower extremity cellulitis and x-ray findings suspicious for an underlying osteomyelitis. Awaiting further workup of her respiratory status as a possible source of infection. Consider bone scan to further characterize the x-ray findings of the right ankle. Recommend a debridement and bone biopsy pending the bone scan, assuming the patient remained stable. Consider an infectious disease consult. Daily Xeroform and dry sterile dressing to the wounds bilaterally. Consult Acknowledgment - Thank you for your consult request. Attending MD Review Statement Attending Statement Attending MD Statement: examined this patient
--- NOTE | 2016-06-09 12:46 | NUR ---
STAT EKG DONE AND SHOWN TO . 500ML NS BOLUS RUNNING AT THIS TIME. PT TO CT SCAN WITH THIS RN AND TRASNPORT FOR CT-A
--- NOTE | 2016-06-09 13:12 | Cons- Cardiology ---
General Information and HPI Consulting Request Date of Consult: 06/09/16 Requested By: ALEXANDRIA HERNANDEZ MD Reason for Consult: History of CHF; elevated troponin Source of Information: old records Exam Limitations: confusion History of Present Illness: The patient is a 70-year-old female. 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 The patient was sent to the hospital, from [facility], for evaluation of altered mental status and hypoxia. The patient remained somewhat confused and determination of her current clinical status for the patient is difficult. From review of records, the patient was noted to have increasing mental status changes and was transferred to the hospital for further evaluation. She has already been seen by the medical service and podiatry for evaluation of a lower extremity ulcer and possible osteomyelitis. From a cardiac standpoint, there have been no obvious symptoms. However, the patient's troponin has increased to 0.14 and cardiology input was requested for evaluation and assistance with further management. As noted, her past history is remarkable for COPD, coronary artery disease, prior HFpEF and bipolar disorder. She also has history of prior pulmonary embolus and a prior placement of an IVC filter as well as peripheral arterial disease and sleep apnea. Allergies/Medications Allergies: Coded Allergies: adhesive tape (UNKNOWN 06/09/16) Home Med List: Aspirin (Children's Aspirin) 81 MG TAB.CHEW 1 TAB PO DAILY HEART HEALTH ( Reported) Brinzolamide/Brimonidine Tart (Simbrinza 1%-0.2% Eye Drops) 1 %-0.2 % DROPS.SUSP 1 DROP TOP BID EYE (Reported) BUPROPION HCL (Bupropion XL) 300 MG TAB.ER.24H 1 TAB PO DAILY DEPRESSION ( Reported) CETIRIZINE HCL (Cetirizine HCl) 10 MG TABLET 1 TAB PO DAILY ALLERGIES ( Reported) Dexlansoprazole (Dexilant) 60 MG CAP.DR.BP 1 CAP PO BID GI (Reported) Docusate Sodium (Colace) 100 MG CAPSULE 1 TAB PO DAILY STOOL SOFTENER ( Reported) Folic Acid 0.4 MG TAB 2 TAB PO DAILY VITAMIN (Reported) Furosemide 40 MG TAB 1 TAB PO DAILY WATER PILL (Reported) Hydroxychloroquine Sulfate 200 MG TABLET 1 TAB PO BID ARTHRITIS (Reported) IMIPRAMINE HCL (Imipramine HCl) 25 MG TABLET 1 TAB PO DAILY ANTIDEPRESSENT ( Reported) Imipramine Pamoate (Imipramine Pm) 75 MG CAP 1 CAP PO AT BEDTIME DEPRESSION ( Reported) Ipratropium [place] (Atrovent HFA 12.9 GMS) 17 MCG/ACTUATION HFA.AER.AD 0.06 % INH BID BREATHING (Reported) Levothyroxine Sodium 50 MCG TABLET 1 TAB PO DAILY AC HYPOTHROID (Reported) Linaclotide (Linzess) 290 MCG CAP 1 CAP PO DAILY IBS (Reported) Lorazepam (Ativan) 0.5 MG TAB 1 TAB PO AT BEDTIME SLEEP (Reported) Mirabegron (Myrbetriq) [address] TAB PO DAILY BLADDER (Reported) Montelukast Sodium (Singulair) 10 MG TABLET 1 TAB PO DAILY ALLERGIES ( Reported) Morphine Sulfate (Morphine Sulfate ER) 30 MG TABLET.ER 1 TAB PO Q12 PAIN ( Reported) MULTIVITAMINS,THERAPEUTIC (Thera) 1 TAB TAB 1 TAB PO DAILY SUPPLEMENT ( Reported) POTASSIUM CHLORIDE (K-Dur) 20 MEQ TAB.ER.PRT 1 TAB PO BID VITAMIN (Reported) Pregabalin (Lyrica) 300 MG CAPSULE 1 CAP PO AT BEDTIME NEUROPATHY (Reported) Pregabalin (Lyrica) 75 MG CAPSULE 1 CAP PO BID NEUROPATHY (Reported) 6 AM AND 5 PM Sennosides/Docusate Sodium (Senokot-S Tablet) 8.6 MG-50 MG TABLET 1 TAB PO DAILY CONSTIPATION (Reported) AT 9 AM Spironolactone (Aldactone) 25 MG TABLET 1 TAB PO AT BED TIME WATER PILL ( Reported) Tizanidine HCl 4 MG TABLET 1 TAB PO BID MUSCLE SPASMS (Reported) MORNING AND NOON Tizanidine HCl 4 MG TABLET 2 TAB PO QPM MUSCLE SPASMS (Reported) Travoprost (Travatan Z Oph Donna 0.004% 2.5ML) 0.004 % DROPS 1 GTT OPH QPM DRY (Reported) TRAZODONE HCL (Trazodone HCl) 150 MG TAB 1 TAB PO QPM SLEEP (Reported) Venlafaxine HCl (Effexor XR) 150 MG CAP.ER.24H 2 CAP PO DAILY DEPRESSION ( Reported) Current Medications: Current Medications Sig/[place] Start time Last Medication Dose Route Stop Time Status Admin Acetaminophen 650 MG Q8P PRN 06/09 0545 AC PO Acetaminophen 1,000 MG ONCE ONE 06/09 314 DC 03/04 N/A 1 UNIT IV 06/09 0329 0316 Acetaminophen 0 .STK-MED ONE 06/09 0255 DC IV Albuterol Sulfate 3 ML EVERY 4 HRS/AWAKE 06/09 1200 AC 06/09 INH 1101 Albuterol Sulfate 3 ML ONCE ONE 06/09 0215 DC 06/09 INH 06/09 0216 0216 Albuterol Sulfate 3 ML ONCE ONE 06/09 0215 DC 06/09 INH 06/09 0216 0216 Albuterol Sulfate 3 ML ONCE ONE 06/09 0145 DC 06/09 INH 06/09 0146 0210 Aspirin 81 MG DAILY 06/09 1000 AC PO Azithromycin 500 MG ONCE ONE 06/09 0200 DC 06/09 Dextrose/Water 250 ML IV 06/09 0259 0226 Bupropion HCl 300 MG DAILY 06/09 1255 UNVr PO Ceftriaxone Sodium 0 .STK-MED ONE 06/09 0202 DC .ROUTE Ceftriaxone Sodium 1,000 MG ONCE ONE 06/09 0145 DC 06/09 IV 06/09 0146 0226 Folic Acid 1 MG DAILY 06/09 1000 AC PO Furosemide 0 .STK-MED ONE 06/09 0202 DC IV Furosemide 40 MG ONCE ONE 06/09 0200 DC 06/09 IV 06/09 0201 0226 Heparin Sodium 0 .STK-MED ONE 06/09 0644 DC (Porcine) .ROUTE Heparin Sodium 5,000 UNIT Q8 06/09 0600 AC 06/09 (Porcine) SC 0648 Hydroxychloroquine 200 MG BID 06/09 1000 AC Sulfate PO Imipramine HCl 25 MG AT BEDTIME 06/09 2200 UNVr PO Imipramine HCl 25 MG DAILY 06/09 1301 DCr PO Ipratropium [place] 2.5 ML EVERY 4 HRS/AWAKE 06/09 1200 AC 06/09 INH 1101 Ipratropium [place] 2.5 ML ONCE ONE 06/09 0145 DC 06/09 INH 06/09 0146 0209 Ketorolac 15 MG Q8P PRN 06/09 0545 AC Tromethamine IV Levothyroxine Sodium 0.05 MG DAILY AC 06/09 0700 AC 06/09 PO 0651 Methylprednisolone 0 .STK-MED ONE 06/09 0202 DC .ROUTE Methylprednisolone 125 MG ONCE ONE 06/09 0145 DC 06/09 IV 06/09 0146 0226 Non-Formulary 0 SEE ADMIN CRITERIA 06/09 1300 UNVr Medication ANY Omeprazole 20 MG DAILY AC 06/09 0700 AC 06/09 PO 0651 Omeprazole 0 .STK-MED ONE 06/09 0644 DC PO Potassium Chloride 10 MEQ Q1H 06/09 1045 DC / IV 06/09 1146 1227 Pregabalin 150 MG TID 06/09 1600 UNVr PO Sodium Chloride 500 ML BOLUS ONE 06/09 1145 DC / IV 06/09 1244 1157 Sodium Chloride 1,000 ML Q20H 06/09 0615 AC 06/09 IV 0648 Vancomycin HCl 1,000 MG DAILY@0430 06/10 0430 AC Dextrose/Water 250 ML IV Vancomycin HCl 0 .STK-MED ONE 06/09 0411 DC .ROUTE Vancomycin HCl 1,000 MG ONCE ONE 06/09 0400 DC 06/09 Dextrose/Water 250 ML IV 06/09 0459 0423 Venlafaxine HCl 225 MG DAILY 06/09 1304 UNVr PO Past History Travel History Traveled to [place] past 21 day No Medical History Neurological: NONE EENT: cataracts Cardiovascular: CAD, CHF, chronic venous insuff, hypertension, myocardial infarction, PVD Respiratory: asthma, COPD, obstructive sleep apnea, pulmonary embolism Gastrointestinal: pancreatitis Hepatic: NONE Renal: OVERACTIVE BLADDER Musculoskeletal: chronic back pain, rheumatoid arthritis Psychiatric: bipolar disease Endocrine: hypothyroidism Blood Disorders: NONE Cancer(s): NONE BRICK PICKER/Reproductive: NONE Other Medical Hx: glaucoma Surgical History Surgical History: appendectomy, cholecystectomy, knee replacement Family History Relations & Conditions If Any: MOTHER FH: diabetes mellitus FHx: heart disease Psychosocial History Where Do You Live? [facility] Home: lives in detention Smoking Status: Former Smoker Exam & Diagnostic Data Vital Signs and I&O Vital Signs Date Time Temp Pulse Resp B/P Pulse O2 O2 Flow FiO2 Ox Delivery Rate 06/09 0855 94 Venti Mask 50% / 0855 98.8 100 22 112/60 94 Venti Mask 50% / 0647 99.0 98 20 112/57 95 Venti Mask 50% / 0446 100.4 / 0418 100.8 / 0316 101.0 / 0316 144/67 / 0230 99 Aerosol Mask 06/09 0228 99 Venti Mask 6.0L 06/09 021 98 Aerosol 6.0L Mask 06/09 021 101.0 117 24 110/62 100 Aerosol 6.0L Mask Intake & Output 06/09 1600 06/09 0800 06/09 0000 06/08 1600 06/08 0800 06/08 0000 Intake Total Output Total Balance Patient 259 lb 259 lb Weight Physical Exam: General Appearance well developed female, mild distress, alert, confused Skin Multiple venous wounds on lower extremities, Chronic lower extremity skin changes HEENT normal Neck Supple, JVP normal, carotids normal bilaterally Cardiovascular Regular Rate, Normal S1, Normal S2, 1/6 systolic murmur left upper sternal border Lungs scattered rhonchi Abdomen Normal Bowel Sounds, Soft, No Tenderness, No Hepatospenomegaly, No Masses Neurological Disoriented, awake, in mild distress, grossly nonfocal Extremities No Clubbing, No Cyanosis, Vascular Normal Pulses, Pulses Symmetrical Labs/Gene Results: Laboratory Tests 06/09 06/09 1148 1045 Coagulation PT (9.4 - 12.5 SEC) 13.7 H INR (0.90 - 1.19) 1.31 H D-Dimer (70 - 232 ng/ml) 738 H Urines Urine Color (YEL,AMB,STR) YEL Urine Clarity (CLEAR) CLEAR Urine pH (5.0 - 8.0) 6.0 Ur Specific [place] (1.001 - 1.035) 1.025 Urine Protein (NEG,<30 MG/DL) NEG Urine Ketones (NEG) NEG Urine Nitrite (NEG) NEG Urine Bilirubin (NEG) NEG Urine Urobilinogen (0.1 - 1.0 EU/dl) 0.2 Ur Leukocyte Esterase (NEG) NEG Ur Microscopic EXAM NOT REQUIRED Urine Hemoglobin (NEG) NEG Urine Glucose (N MG/DL) NEG 06/09 06/09 0900 0505 Chemistry Sodium (137 - 145 mmol/L) 139 Potassium (3.5 - 5.1 mmol/L) 3.3 L Chloride (98 - 107 mmol/L) 100 Carbon Dioxide (22 - 30 mmol/L) 26 Anion Gap (5 - 16) 12 BUN (7 - 17 mg/dL) 11 Creatinine (0.5 - 1.0 mg/dL) 0.7 Estimated GFR (>60 ml/min) > 60 BUN/Creatinine Ratio (7 - 25 %) 15.7 Glucose (65 - 99 mg/dL) 125 H Lactic Acid (0.7 - 2.1 mmol/L) 1.9 1.6 Calcium (8.4 - 10.2 mg/dL) 8.8 Total Bilirubin (0.2 - 1.3 mg/dL) 0.4 AST (14 - 36 U/L) 42 H ALT (9 - 52 U/L) 60 H Alkaline Phosphatase (<127 U/L) 261 H Troponin I (< 0.11 ng/ml) 0.14 *H Total Protein (6.3 - 8.2 g/dL) 6.1 L Albumin (3.5 - 5.0 g/dL) 3.3 L Globulin (1.9 - 4.2 gm/dL) 2.8 Albumin/Globulin Ratio (1.1 - 2.2 %) 1.2 Hematology CBC w Diff MAN DIFF ORDERED WBC (4.8 - 10.8 /CUMM) 27.7 H RBC (4.20 - 5.40 /CUMM) 4.42 Hgb (12.0 - 16.0 G/DL) 11.3 L Hct (37 - 47 %) 35.0 L MCV (81.0 - 99.0 FL) 79.1 L MCH (27.0 - 31.0 PG) 25.5 L RDW (11.5 - 14.5 %) 15.6 H Plt Count (130 - 400 /CUMM) 218 MPV (7.4 - 10.4 FL) 9.0 Gran % (42.2 - 75.2 %) 96.1 H Lymphocytes % (20.5 - 51.1 %) 1.7 L Monocytes % (1.7 - 9.3 %) 2.2 Eosinophils % (0 - 5 %) 0 Basophils % (0.0 - 2.0 %) 0 L Absolute Granulocytes (1.4 - 6.5 /CUMM) 26.6 H Segmented Neutrophils (42.2 - 75.2 %) 73 Band Neutrophils (0.0 - 5.0 %) 22 H Absolute Lymphocytes (1.2 - 3.4 /CUMM) 0.5 L Lymphocytes (20.5 - 51.1 %) 3 L Monocytes (1.7 - 9.3 %) 2 Absolute Monocytes (0.10 - 0.60 /CUMM) 0.6 Absolute Eosinophils (0.0 - 0.7 /CUMM) 0 Absolute Basophils (0.0 - 0.2 /CUMM) 0 Poikilocytosis 1+ Anisocytosis 2+ Microcytic Cells 3+ Ovalocytes 1+ PUBS MCHC (33.0 - 37.0 G/DL) 32.2 L / 0200 Blood Gas pH (7.35 - 7.45 PH) 7.41 pCO2 (35 - 45 TORR) 30 L pO2 (80 - 100 TORR) 84 HCO3 (21 - 28 MEQ/L) 19 L ABG O2 Sat (Measured) (>96.0 %) 97.0 P-50 (Temp Corrected) N Carboxyhemoglobin (1.5 - 5.0 %) 0.2 L O2 Concentration % 6L O2 Delivery Method NEB RX Chemistry Sodium (137 - 145 mmol/L) 138 Potassium (3.5 - 5.1 mmol/L) 4.4 Chloride (98 - 107 mmol/L) 98 Carbon Dioxide (22 - 30 mmol/L) 26 Anion Gap (5 - 16) 14 BUN (7 - 17 mg/dL) 12 Creatinine (0.5 - 1.0 mg/dL) 0.7 Estimated GFR (>60 ml/min) > 60 BUN/Creatinine Ratio (7 - 25 %) 17.1 Glucose (65 - 99 mg/dL) 94 Lactic Acid (0.7 - 2.1 mmol/L) 2.8 H Calcium (8.4 - 10.2 mg/dL) 9.6 Total Bilirubin (0.2 - 1.3 mg/dL) 0.5 AST (14 - 36 U/L) 57 H ALT (9 - 52 U/L) 78 H Alkaline Phosphatase (<127 U/L) 346 H Creatine Kinase (30 - 135 U/L) 78 Troponin I (< 0.11 ng/ml) 0.05 [id number] Pept (<125 pg/mL) 379 H Total Protein (6.3 - 8.2 g/dL) 7.5 Albumin (3.5 - 5.0 g/dL) 4.2 Globulin (1.9 - 4.2 gm/dL) 3.3 Albumin/Globulin Ratio (1.1 - 2.2 %) 1.3 Hematology CBC w Diff MAN DIFF ORDERED WBC (4.8 - 10.8 /CUMM) 19.1 H RBC (4.20 - 5.40 /CUMM) 4.88 Hgb (12.0 - 16.0 G/DL) 12.3 Hct (37 - 47 %) 38.7 MCV (81.0 - 99.0 FL) 79.2 L MCH (27.0 - 31.0 PG) 25.1 L RDW (11.5 - 14.5 %) 15.9 H Plt Count (130 - 400 /CUMM) 262 MPV (7.4 - 10.4 FL) 8.7 Gran % (42.2 - 75.2 %) 91.0 H Lymphocytes % (20.5 - 51.1 %) 5.2 L Monocytes % (1.7 - 9.3 %) 1.9 Eosinophils % (0 - 5 %) 1.5 Basophils % (0.0 - 2.0 %) 0.4 Absolute Granulocytes (1.4 - 6.5 /CUMM) 17.4 H Segmented Neutrophils (42.2 - 75.2 %) 89 H Band Neutrophils (0.0 - 5.0 %) 2 Absolute Lymphocytes (1.2 - 3.4 /CUMM) 1.0 L Lymphocytes (20.5 - 51.1 %) 6 L Monocytes (1.7 - 9.3 %) 1 L Absolute Monocytes (0.10 - 0.60 /CUMM) 0.4 Eosinophils (0 - 5.0 %) 2 Absolute Eosinophils (0.0 - 0.7 /CUMM) 0.3 Absolute Basophils (0.0 - 0.2 /CUMM) 0.1 Platelet Estimate (ADEQUATE) ADEQUATE Hypochromic-Microcytic 1+ Poikilocytosis 1+ Anisocytosis 1+ Microcytic Cells 1+ Ovalocytes 1+ PUBS MCHC (33.0 - 37.0 G/DL) 31.7 L Miscellaneous Phlebotomy Draw Site RIGHT RADIAL Other Body Source Fld Total RBCs Counted (%) 100 Diagnostic Data CXR Results FINDINGS: Markedly low lung volumes with linear bibasilar opacities that most likely reflect atelectasis. No definite pneumothorax. There is central vascular congestion and I cannot exclude mild interstitial edema. Nondiagnostic assessment of the cardiac silhouette given technique and low lung volumes. There are no acute osseous findings. Multiple old healed right-sided rib fractures. IMPRESSION: Limited study with markedly low lung volumes and probable bibasilar atelectasis. There is central vascular congestion and I cannot exclude mild interstitial edema. Assessment/Plan Assessment/Plan Assessment: 1. Elevated troponin-at the present time, there is no evidence of an acute ischemic event. The minimally elevated troponin may be related to demand ischemia. 2. History of coronary artery disease 3. SIRS/leukocytosis/probable sepsis/mental status changes with possible metabolic encephalopathy and positive blood cultures for gram-positive cocci 4. Hypoxia with possible acute on chronic HFpEF 5. Lower extremity ulceration with possible underlying osteomyelitis 6. Leukocytosis with possible sepsis. Recommendations: -Continue as per the medical/critical care team -Trend troponin until decreasing -ECG later today and again in the morning -Follow-up echocardiogram to assess left ventricular function and wall motion -CTA pending to rule out the possibility of occult pulmonary embolism -Further plans after the above Consult Acknowledgment - Thank you for your consult request.
--- NOTE | 2016-06-09 13:44 | NUR ---
PT BACK FROM CT SCAN. NO ISSUES. TOLERATED WELL.
--- NOTE | 2016-06-09 13:58 | CT SCAN REPORT ---
EXAMINATION: CT ANGIOGRAM OF THE CHEST WITH AND WITHOUT CONTRAST (CT PULMONARY ANGIOGRAM FOR PE) CLINICAL INFORMATION: 70-year-old woman with tachycardia and tachypnea. COMPARISON: 01/01/2014 chest CTA TECHNIQUE: Prior to contrast administration, noncontrast localization images were obtained. Subsequently, multidetector volumetric imaging was performed from the thoracic inlet to below the diaphragms following the administration of 75 mL Optiray 350 intravenous contrast. No contrast reaction reported Sagittal, coronal, and MIP oblique sagittal reformatted images were obtained on the CT workstation, uploaded to PACS, and reviewed. Total exam dose-length product 485 mGy-cm FINDINGS: QUALITY OF STUDY/CONTRAST BOLUS: Satisfactory. PULMONARY ARTERIES: No central or segmental pulmonary emboli. THORACIC AORTA: No aneurysm or dissection. LUNG: No focal consolidation, nodules or masses. There is bibasilar atelectasis that is worse on the right. PLEURA: No pleural effusion or pneumothorax. There is elevation of the right hemidiaphragm. MEDIASTINUM: Normal heart size. No pericardial effusion. No hilar or mediastinal lymphadenopathy. CHEST WALL/AXILLA: No axillary or internal mammary lymphadenopathy. OSSEOUS STRUCTURES: No acute or suspicious osseous abnormality. UPPER ABDOMEN: A 2 cm hypodensity in the spleen is unchanged. IMPRESSION: No evidence of acute or chronic pulmonary emboli.
--- NOTE | 2016-06-09 14:22 | Cons- Infect Disease ---
General Information and HPI Consulting Request Date of Consult: 06/09/16 Requested By: ALEXANDRIA HERNANDEZ MD Reason for Consult: Positive blood cultures for gram-positive cocci in pairs and chains Source of Information: patient, old records History of Present Illness: This is a 70-year-old woman, jail resident, with a history of COPD, sleep apnea, CHF, coronary artery disease, rheumatoid arthritis, interstitial cystitis, chronic pain with a nonfunctioning neurostimulator and pain pump still in place, maintained on chronic pain meds, with an ulcer on the right medial malleolus for the past 2 months, admitted early this morning with the acute onset of shortness of breath and altered mental status. On admission she was febrile to 101. Laboratory data revealed a white blood cell count of 19,000, BUN/creatinine 12.7, lactic acid 2.8, alk phosphatase 46, AST/ALT 57 and 78, BNP 379. ABG 7.41/30/84 on 6 L. Urinalysis negative. Chest x-ray revealed bibasilar atelectasis. X-rays of the left tibia and fibula were negative. X- ray of the right ankle reveals indistinctness of the cortex of the medial malleolus and possible periosteal reaction. She was given Solumedrol, Lasix, Ceftriaxone, Azithromycin and Vancomycin in the emergency room and was admitted to the ICU. Later in the morning blood cultures 2 were reported positive for gram-positive cocci in pairs and chains. She was initially placed on a Ventimask but she has improved and is currently on a nasal cannula. Presently she does not offer any complaints. She cannot recollect the events leading to her admission and states she felt in her usual state of health yesterday. Allergies/Medications Allergies: Coded Allergies: adhesive tape (UNKNOWN 06/09/16) Home Med List: Aspirin (Children's Aspirin) 81 MG TAB.CHEW 1 TAB PO DAILY HEART HEALTH ( Reported) BUPROPION HCL (Bupropion XL) 300 MG TAB.ER.24H 1 TAB PO DAILY DEPRESSION ( Reported) Calcium Carbonate (Tums) 500 MG CTB 1 TAB PO DAILY GI (Reported) CETIRIZINE HCL (Cetirizine HCl) 10 MG TABLET 1 TAB PO DAILY ALLERGIES ( Reported) Colesevelam Hydrochloride (Welchol) 625 MG TABLET 3 TAB PO BID HIGH CHOLESTROL (Reported) Dexlansoprazole (Dexilant) 60 MG CAP.DRBrittBP 1 CAP PO BID GI (Reported) Docusate Sodium (Colace) 100 MG CAPSULE 1 TAB PO DAILY STOOL SOFTENER ( Reported) Folic Acid 0.4 MG TAB 2 TAB PO DAILY VITAMIN (Reported) Furosemide 40 MG TAB 1 TAB PO DAILY WATER PILL (Reported) Hydromorphone (Dilaudid) 4 MG TABLET 1 TAB PO Q6-PRN PRN PAIN (Reported) Hydroxychloroquine Sulfate 200 MG TABLET 1 TAB PO BID ARTHRITIS (Reported) IMIPRAMINE HCL (Imipramine HCl) 25 MG TABLET 1 TAB PO DAILY ANTIDEPRESSENT ( Reported) Imipramine Pamoate (Imipramine Pm) 75 MG CAP 1 CAP PO AT BEDTIME DEPRESSION ( Reported) Ipratropium [place] (Atrovent HFA 12.9 GMS) 17 MCG/ACTUATION HFA.AER.AD 0.06 % INH BID BREATHING (Reported) Levothyroxine Sodium 50 MCG TABLET 1 TAB PO DAILY AC HYPOTHROID (Reported) Lidocaine HCl (Lidoderm Patch) 5 % PAT 1 PAT TOP DAILY PAIN (Reported) may wear up to 12 hours Linaclotide (Linzess) 290 MCG CAP 1 CAP PO DAILY IBS (Reported) Lorazepam (Ativan) 0.5 MG TAB 1 TAB PO AT BEDTIME SLEEP (Reported) Mirabegron (Myrbetriq) [address] TAB PO DAILY BLADDER (Reported) Montelukast Sodium (Singulair) 10 MG TABLET 1 TAB PO DAILY ALLERGIES ( Reported) MULTIVITAMINS,THERAPEUTIC (Thera) 1 TAB TAB 1 TAB PO DAILY SUPPLEMENT ( Reported) OLOPATADINE HCL (Pataday 2.5 Ml) 2.5 ML SUSHIL 1 GTT OPH DAILY EYE (Reported) Oxybutynin Chloride 5 MG TABLET 1 TAB PO BID OVERACTIVE BLADDER (Reported) POTASSIUM CHLORIDE (K-Dur) 20 MEQ TAB.ER.PRT 1 TAB PO BID VITAMIN (Reported) Pregabalin (Lyrica) 150 MG CAPSULE 1 CAP PO TID PAIN (Reported) Spironolactone (Aldactone 25 MG Tablet) 25 MG TABLET 0.5 TAB PO AT BEDTIME HTN (Reported) TIZANIDINE HCL (Tizanidine HCl) 4 MG TABLET 1 TAB PO TID MUSCLE SPASMS ( Reported) Travoprost (Travatan Z Oph Sushil 0.004% 2.5ML) 0.004 % DROPS 1 GTT OPH QPM DRY (Reported) TRAZODONE HCL (Trazodone HCl) 150 MG TAB 1 TAB PO QPM SLEEP (Reported) VENLAFAXINE HCL (Venlafaxine HCl ER) 150 MG CAP.ER.24H 225 MG PO DAILY DEPRESSION (Reported) Past History Travel History Traveled to [place] past 21 day No Medical History Neurological: NONE EENT: cataracts Cardiovascular: CAD, CHF, chronic venous insuff, hypertension, myocardial infarction, PVD, SVT Respiratory: asthma, COPD, obstructive sleep apnea, pulmonary embolism Gastrointestinal: pancreatitis Hepatic: NONE Renal: OVERACTIVE BLADDER, interstitial cystitis Musculoskeletal: chronic back pain, rheumatoid arthritis Psychiatric: bipolar disease Endocrine: hypothyroidism Blood Disorders: DVT Cancer(s): NONE 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 Longterm Facility Services at Home: lives in jail Smoking Status: Former Smoker Review of Systems Review of Systems Respiratory: Reports: cough (chronic). GI: Reports: no symptoms. Genitourinary: Reports: no symptoms. All Other Systems: Reviewed and Negative Exam & Diagnostic Data Last 24 Hrs of Vital Signs/I&O Vital Signs Date Time Temp Pulse Resp B/P Pulse O2 O2 Flow FiO2 Ox Delivery Rate 06/09 1050 Venti Mask 50% / 0855 94 Venti Mask 50% / 0855 98.8 100 22 112/60 94 Venti Mask 50% /04 0647 99.0 98 20 112/57 95 Venti Mask 50% /04 0446 100.4 03/ 0418 100.8 03/ 0316 101.0 03/ 0316 144/67 03/ 0230 99 Aerosol Mask / 0228 99 Venti Mask 6.0L / 0217 98 Aerosol 6.0L Mask / 0214 101.0 117 24 110/62 100 Aerosol 6.0L Mask Intake & Output / 1600 /04 0800 03/04 0000 Intake Total Output Total Balance Patient 259 lb 259 lb Weight Physical Exam Other Physical Findings: She is awake and alert in no acute distress. MAXIMUM TEMPERATURE 101. Skin reveals no rash. HEENT exam is negative. Neck is supple with no adenopathy. Lungs crackles at the left base. Heart regular rhythm with no murmur. Abdomen is obese, soft, nontender with positive bowel sounds; right upper quadrant pump in place with no inflammation. Back no CVA tenderness. Extremities right medial malleolar ulcer with surrounding erythema and warmth, with minimal tenderness and mild edema of the right leg; superficial ulcerations on the left leg with no surrounding inflammation; pulses 1+ and equal bilaterally.. Neuro is without focality. Last 24 Hours of Lab Results: Laboratory Tests 06/09 06/09 1148 1045 Coagulation PT (9.4 - 12.5 SEC) 13.7 H INR (0.90 - 1.19) 1.31 H D-Dimer (70 - 232 ng/ml) 738 H Urines Urine Color (YEL,AMB,STR) YEL Urine Clarity (CLEAR) CLEAR Urine pH (5.0 - 8.0) 6.0 Ur Specific [place] (1.001 - 1.035) 1.025 Urine Protein (NEG,<30 MG/DL) NEG Urine Ketones (NEG) NEG Urine Nitrite (NEG) NEG Urine Bilirubin (NEG) NEG Urine Urobilinogen (0.1 - 1.0 EU/dl) 0.2 Ur Leukocyte Esterase (NEG) NEG Ur Microscopic EXAM NOT REQUIRED Urine Hemoglobin (NEG) NEG Urine Glucose (N MG/DL) NEG 06/09 06/09 0900 0505 Chemistry Sodium (137 - 145 mmol/L) 139 Potassium (3.5 - 5.1 mmol/L) 3.3 L Chloride (98 - 107 mmol/L) 100 Carbon Dioxide (22 - 30 mmol/L) 26 Anion Gap (5 - 16) 12 BUN (7 - 17 mg/dL) 11 Creatinine (0.5 - 1.0 mg/dL) 0.7 Estimated GFR (>60 ml/min) > 60 BUN/Creatinine Ratio (7 - 25 %) 15.7 Glucose (65 - 99 mg/dL) 125 H Lactic Acid (0.7 - 2.1 mmol/L) 1.9 1.6 Calcium (8.4 - 10.2 mg/dL) 8.8 Total Bilirubin (0.2 - 1.3 mg/dL) 0.4 AST (14 - 36 U/L) 42 H ALT (9 - 52 U/L) 60 H Alkaline Phosphatase (<127 U/L) 261 H Troponin I (< 0.11 ng/ml) 0.14 *H Total Protein (6.3 - 8.2 g/dL) 6.1 L Albumin (3.5 - 5.0 g/dL) 3.3 L Globulin (1.9 - 4.2 gm/dL) 2.8 Albumin/Globulin Ratio (1.1 - 2.2 %) 1.2 Hematology CBC w Diff MAN DIFF ORDERED WBC (4.8 - 10.8 /CUMM) 27.7 H RBC (4.20 - 5.40 /CUMM) 4.42 Hgb (12.0 - 16.0 G/DL) 11.3 L Hct (37 - 47 %) 35.0 L MCV (81.0 - 99.0 FL) 79.1 L MCH (27.0 - 31.0 PG) 25.5 L RDW (11.5 - 14.5 %) 15.6 H Plt Count (130 - 400 /CUMM) 218 MPV (7.4 - 10.4 FL) 9.0 Gran % (42.2 - 75.2 %) 96.1 H Lymphocytes % (20.5 - 51.1 %) 1.7 L Monocytes % (1.7 - 9.3 %) 2.2 Eosinophils % (0 - 5 %) 0 Basophils % (0.0 - 2.0 %) 0 L Absolute Granulocytes (1.4 - 6.5 /CUMM) 26.6 H Segmented Neutrophils (42.2 - 75.2 %) 73 Band Neutrophils (0.0 - 5.0 %) 22 H Absolute Lymphocytes (1.2 - 3.4 /CUMM) 0.5 L Lymphocytes (20.5 - 51.1 %) 3 L Monocytes (1.7 - 9.3 %) 2 Absolute Monocytes (0.10 - 0.60 /CUMM) 0.6 Absolute Eosinophils (0.0 - 0.7 /CUMM) 0 Absolute Basophils (0.0 - 0.2 /CUMM) 0 Poikilocytosis 1+ Anisocytosis 2+ Microcytic Cells 3+ Ovalocytes 1+ PUBS MCHC (33.0 - 37.0 G/DL) 32.2 L 03/04 0200 Blood Gas pH (7.35 - 7.45 PH) 7.41 pCO2 (35 - 45 TORR) 30 L pO2 (80 - 100 TORR) 84 HCO3 (21 - 28 MEQ/L) 19 L ABG O2 Sat (Measured) (>96.0 %) 97.0 P-50 (Temp Corrected) N Carboxyhemoglobin (1.5 - 5.0 %) 0.2 L O2 Concentration % 6L O2 Delivery Method NEB RX Chemistry Sodium (137 - 145 mmol/L) 138 Potassium (3.5 - 5.1 mmol/L) 4.4 Chloride (98 - 107 mmol/L) 98 Carbon Dioxide (22 - 30 mmol/L) 26 Anion Gap (5 - 16) 14 BUN (7 - 17 mg/dL) 12 Creatinine (0.5 - 1.0 mg/dL) 0.7 Estimated GFR (>60 ml/min) > 60 BUN/Creatinine Ratio (7 - 25 %) 17.1 Glucose (65 - 99 mg/dL) 94 Lactic Acid (0.7 - 2.1 mmol/L) 2.8 H Calcium (8.4 - 10.2 mg/dL) 9.6 Total Bilirubin (0.2 - 1.3 mg/dL) 0.5 AST (14 - 36 U/L) 57 H ALT (9 - 52 U/L) 78 H Alkaline Phosphatase (<127 U/L) 346 H Creatine Kinase (30 - 135 U/L) 78 Troponin I (< 0.11 ng/ml) 0.05 [id number] Pept (<125 pg/mL) 379 H Total Protein (6.3 - 8.2 g/dL) 7.5 Albumin (3.5 - 5.0 g/dL) 4.2 Globulin (1.9 - 4.2 gm/dL) 3.3 Albumin/Globulin Ratio (1.1 - 2.2 %) 1.3 Hematology CBC w Diff MAN DIFF ORDERED WBC (4.8 - 10.8 /CUMM) 19.1 H RBC (4.20 - 5.40 /CUMM) 4.88 Hgb (12.0 - 16.0 G/DL) 12.3 Hct (37 - 47 %) 38.7 MCV (81.0 - 99.0 FL) 79.2 L MCH (27.0 - 31.0 PG) 25.1 L RDW (11.5 - 14.5 %) 15.9 H Plt Count (130 - 400 /CUMM) 262 MPV (7.4 - 10.4 FL) 8.7 Gran % (42.2 - 75.2 %) 91.0 H Lymphocytes % (20.5 - 51.1 %) 5.2 L Monocytes % (1.7 - 9.3 %) 1.9 Eosinophils % (0 - 5 %) 1.5 Basophils % (0.0 - 2.0 %) 0.4 Absolute Granulocytes (1.4 - 6.5 /CUMM) 17.4 H Segmented Neutrophils (42.2 - 75.2 %) 89 H Band Neutrophils (0.0 - 5.0 %) 2 Absolute Lymphocytes (1.2 - 3.4 /CUMM) 1.0 L Lymphocytes (20.5 - 51.1 %) 6 L Monocytes (1.7 - 9.3 %) 1 L Absolute Monocytes (0.10 - 0.60 /CUMM) 0.4 Eosinophils (0 - 5.0 %) 2 Absolute Eosinophils (0.0 - 0.7 /CUMM) 0.3 Absolute Basophils (0.0 - 0.2 /CUMM) 0.1 Platelet Estimate (ADEQUATE) ADEQUATE Hypochromic-Microcytic 1+ Poikilocytosis 1+ Anisocytosis 1+ Microcytic Cells 1+ Ovalocytes 1+ PUBS MCHC (33.0 - 37.0 G/DL) 31.7 L Miscellaneous Phlebotomy Draw Site RIGHT RADIAL Other Body Source Fld Total RBCs Counted (%) 100 Last 24 Hours of Gene Results: Blood cultures June 09 positive for gram-positive cocci in pairs and chains Rapid flu swab June 09 negative Diagnostic Data Recent Imaging Findings: Chest x-ray, personally reviewed, reveals bibasilar atelectasis. X-ray of the left tibia and fibula negative. X-ray of the right ankle reveals indistinctness of the cortex of the medial malleolus and possible periosteal reaction, suspicious for osteomyelitis CTA of the chest no evidence of acute or chronic emboli; no focal consolidation; bibasilar atelectasis, right greater than left Assessment/Plan Assessment/Plan Impression: This is a 70-year-old woman with a history of CHF, COPD, coronary artery disease , rheumatoid arthritis, with a 2 month history of a right medial malleolar ulcer , admitted today with the acute onset of shortness of breath and altered mental status, found to be febrile with a leukocytosis and with blood cultures 2 positive for gram-positive cocci in pairs and chains. The most likely source of sepsis appears to be the right leg, with a mild cellulitis superimposed on probable underlying osteomyelitis. The most likely organism is a beta-hemolytic strep and her antibiotics can be adjusted to cover primarily this organism. Further imaging, for example bone scan or, if her neurostimulator is compatible, MRI, can be considered though, based on her history and x-ray, osteomyelitis seems likely. Have discussed with Podiatry, and she will undergo debridement in the next few days. Suggestion: 1. Follow-up blood culture results 2. Await debridement of the right medial malleolus per Podiatry 3. Begin Unasyn 3 g IV every 6 hours pending above Consult Acknowledgment - Thank you for your consult request.
--- NOTE | 2016-06-09 14:56 | NUR ---
EKG AND TROPONIN DONE AT THIS TIME BY [facility], ROSWELL ALYSON. SPEECH AT BEDSIDE FOR SWALLOW EVAL. PT WAS ABLE TO TOLERATE PILLS WHOLE WITH WATER.
[2016-06-09 16:00] VITALS: BP 114/58
--- NOTE | 2016-06-09 16:48 | ULTRASOUND REPORT ---
EXAMINATION: US ABDOMEN LIMITED CLINICAL INFORMATION: Right quadrant pain with elevated alkaline phosphatase. Evaluate the common bile duct calculus.. COMPARISON: April 29, 2013 and January 26, 2013 TECHNIQUE: Real-time imaging of the right upper quadrant abdominal viscera. Study was performed portably in the intensive care unit and is very limited due to patient's large body habitus. FINDINGS: PANCREAS: Visualized head and body without definite abnormality seen. Tail is obscured by overlying bowel gas. LIVER: Difficult visualization with poor through transmission consistent with fatty infiltration. No definite focal mass or intrahepatic bile duct dilatation. GALLBLADDER: Patient is status post cholecystectomy. No fluid collection seen in the region of the gallbladder fossa. COMMON BILE DUCT: Normal in caliber measuring 0.6 cm in diameter. RIGHT KIDNEY: Normal. No hydronephrosis. No renal calculi or focal parenchymal lesions. The kidney measures 9.4 cm in maximum dimension. FREE FLUID: None. IMPRESSION: Status post cholecystectomy. No significant dilatation of the common bile duct. Inadequate visualization of the common bile duct to evaluate for calculus. Diffuse fatty infiltration of the liver.
[2016-06-09] MEDS ORDERED: LYRICA75 M1 PO (17:04)
[2016-06-09] MEDS ORDERED: LYRICA300 M1 PO (17:04)
[2016-06-09] MEDS ORDERED: MORPHINE SULFAT30 M3 PO (17:06)
[2016-06-09] MEDS ORDERED: SENOKOT-S TABL1 EACH PO (17:08)
[2016-06-09] MEDS ORDERED: SIMBRINZA 1%-0.28 ML TOP (17:10)
[2016-06-09] MEDS ORDERED: TIZANIDINE HCL4 M1 PO (17:14)
[2016-06-09] MEDS ORDERED: EFFEXOR XR150 M1 PO (17:16)
[2016-06-10] VITALS: BP 113/53
--- NOTE | 2016-06-10 02:48 | NUR ---
0000 PATIENT RECEIVED ALERT AND ORIENTED X3, DENIES ANY C/O DISCOMFORT AT THIS TIME, SKIN PINK, WARM AND DRY, RING STAMPER SINUS WITHOUT ECTOPY, HEART RATE 70'S TO 80'S/MIN, O2 AT 3L/MIN VIA NC- CONTINUOUS O2 SAT 94 TO 98%, BREATHE SOUNDS CLEAR BUT DIMINISHED AT BASES, DISTANT, NO AUDIBLE CRACKLES/WHEEZES, ABDOMEN LARGE AND SOFT, +BS, DRESSINGS TO LE INTACT, FEET WARM, PALPABLE PEDAL PULSES, PATIENT SETTLED FOR SLEEP, CALL LIGHT WITHIN REACH
[2016-06-10 05:01] LABS: ABSOLUTE BASOPHIL COUNT 0 /CUMM (0.0-0.2); ABSOLUTE EOSINOPHIL COUNT 0 /CUMM (0.0-0.7); ABSOLUTE GRANULOCYTE CT 21.9 /CUMM (1.4-6.5); ABSOLUTE LYMPH COUNT 1.3 /CUMM (1.2-3.4); BASOPHIL % 0.1 % (0.0-2.0); EOSINOPHIL % 0 % (0-5); GRANULOCYTE % 90.6 % (42.2-75.2); HEMATOCRIT 32.5 % (37-47); MEAN CORPUSCULAR HGB 25.6 PG (27.0-31.0); MEAN CORPUSCULAR HGB CONC 32.3 G/DL (33.0-37.0); MEAN CORPUSCULAR VOLUME 79.4 FL (81.0-99.0); MEAN PLATELET VOLUME 8.8 FL (7.4-10.4); PLATELET COUNT 189 /CUMM (130-400); RBC DISTRIBUTION WIDTH 16.1 % (11.5-14.5); RED BLOOD CELL CT 4.09 /CUMM (4.20-5.40); WHITE BLOOD CELL COUNT 24.2 /CUMM (4.8-10.8)
--- NOTE | 2016-06-10 07:03 | NUR ---
PATIENT REMAINS ALERT AND ORIENTED X3, VSS, O2 SAT 94 TO 99% OVERNIGHT, HOWEVER PATIENT HAS ATTEMPTED TO VOID MULTIPLE TIMES ON BEDPAN WITHOUT SUCCESS- BLADDER SCAN 400 TO 800 ML- DR BOGGS NOTIFIED, STRAIGHT BLADDER CATHETERIZATION DONE WITHOUT DIFFICULTY- 650 ML CLEAR MARY URINE OBTAINED, PATIENT RESTING QUIETLY, AWAITING AM MD ROUNDS
[2016-06-10 08:00] VITALS: BP 118/62
--- NOTE | 2016-06-10 09:36 | PN- Resident CRCU ---
ELENA HOUSTON,KEN 06/10/16 0935: Subjective HPI/CRCU Issues: I followed up and examined the patient today. She is lying comfortably in the bed, alert, oriented, not in distress, both her legs are well-dressed. She did have some cough which initially she mentioned as nonproductive and nothing new given her asthma and did not want to pursue it, but later on mentioned as kusum colored productive cough today. She was convinced later to get it tested ([facility]) and was started on cough medication (Guaifenisin). Patient complaint of chest heaviness around 1330hrs, without any chest pain, shortness of breath, palpitation, dizziness, nausea, vomiting, fever, chills. Patient was hemodynamically stable. However, troponin and EKG was ordered. Vitals have remained stable, temperature has progressively normalized to 97.9, no overnight issues. Objective Vital Signs & I&O Last 8 Hrs of Vitals and I&O: Vital Signs Date Time Temp Pulse Resp B/P Pulse O2 O2 Flow FiO2 Ox Delivery Rate 06/10 1204 95 Nasal 2.0L Cannula / 0800 97.9 79 24 118/62 96 Nasal 2.0L Cannula / 0800 96 Nasal 2.0L Cannula / 0400 99 Nasal 3.0L Cannula / 0000 97 Nasal 3.0L Cannula / 0000 97.7 82 20 113/53 97 Nasal 3.0L Cannula /04 2104 96 Nasal 3.0L Cannula / 2000 95 Nasal 3.0L Cannula / 1716 97 Nasal 4.0L Cannula / 1600 97 Nasal 3.0L Cannula / 1600 98.1 91 20 114/58 97 Nasal 4.0L Cannula Intake & Output / 1600 /05 0800 03/05 0000 Intake Total 980 1240 1140 Output Total 750 700 300 Balance 230 540 840 Intake, IV 500 1190 900 Intake, Oral 480 50 240 Number 3 1 Bowel Movements Output, Urine 750 700 300 Patient 119.748 kg Weight Exam General Appearance: well developed/nourished, no apparent distress, alert, awake , comfortable, obese Other Physical Findings: Ears, Nose, Throat: dry mucous membranes Neck: supple Respiratory: lungs clear, decreased air entry bilaterally Cardiovascular: regular rate/rhythm Gastrointestinal: normal bowel sounds, soft, non-tender Extremities: 2 small venous ulcers on left leg and 1 small circular wound on medial malleolus of right ankle with surrounding erythema, warmth and tenderness. Right foot is deviated laterally (outwards) permanently. Dressing in situ. Cranial Nerves: normal speech Nutrition Nutrition: P.O. diet Current Medications: Current Medications Sig/[place]ula Start time Last Medication Dose Route Stop Time Status Admin Acetaminophen 650 MG Q8P PRN 06/09 0545 AC PO Albuterol Sulfate 3 ML EVERY 4 HRS/AWAKE 06/09 1200 AC 06/10 INH 1202 Ampicillin Sodium/ 3,000 MG Q6 06/09 1431 AC 06/10 Sulbactam Sodium IV 1153 Sodium Chloride 100 ML Aspirin 81 MG DAILY 06/09 1000 AC 06/10 PO 1007 Bupropion HCl 300 MG DAILY 06/09 1255 AC 06/10 PO 1007 Colesevelam HCl 1,875 MG BID 06/09 1300 DC 06/09 PO 1635 Folic Acid 1 MG DAILY 06/09 1000 AC 06/10 PO 1007 Guaifenesin/ 10 ML Q6P PRN 06/10 1445 AC 06/10 Dextromethorphan PO 1450 Heparin Sodium 5,000 UNIT Q8 06/09 0600 AC 06/10 (Porcine) SC 1406 Hydroxychloroquine 200 MG BID 06/09 1000 AC 06/10 Sulfate PO 1007 Imipramine HCl 25 MG QAM 06/10 1000 AC 06/10 PO 1007 Imipramine HCl 25 MG AT BEDTIME 06/09 2200 DC PO Imipramine HCl 75 MG AT BEDTIME 06/09 2200 AC 06/09 PO 2232 Ipratropium [place] 2.5 ML EVERY 4 HRS/AWAKE 06/09 1200 AC 06/10 INH 1202 Ketorolac 15 MG Q8P PRN 06/09 0545 AC Tromethamine IV Levothyroxine Sodium 0.05 MG DAILY AC 06/09 0700 AC 06/10 PO 0637 Mirabegron 25 MG DAILY 06/09 1730 AC 06/10 PO 1007 Multivitamins 1 TAB DAILY 06/10 1000 AC 06/10 PO 1007 Omeprazole 20 MG DAILY AC 06/09 0700 AC 06/10 PO 0637 Pregabalin 300 MG AT BEDTIME 06/09 2200 AC 06/09 PO 2231 Pregabalin 75 MG 0600,1700 06/09 1700 AC 06/10 PO 0559 Pregabalin 150 MG TID 06/09 1600 DC / PO 1634 Sodium Chloride 1,000 ML Q20H 06/09 0615 DC / IV 06/10 1214 0648 Vancomycin HCl 1,000 MG DAILY@0430 06/10 0430 CAN Dextrose/Water 250 ML IV Vancomycin HCl 1,500 MG DAILY@0430 06/10 0430 DC 06/10 Dextrose/Water 500 ML IV 0423 Venlafaxine HCl 300 MG DAILY 06/10 1000 AC 06/10 PO 1007 Venlafaxine HCl 225 MG DAILY 06/09 1304 DC / PO 1634 ECHO Findings: Awaiting Radiology Findings: Awaiting bone scan Impression/Plan Impression/Problem List Impression: She is 70-year-old woman with past medical history of COPD not on home oxygen, asthma, obstructive sleep apnea, intolerant to CPAP because of claustrophobia, 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 Sepsis most likely secondary to cellulitis and possible underlying osteomyelitis of right ankle. Differentials include sepsis 2/2 cellulitis, or pneumonia. * Blood cultures 2 June 09 are growing gram-positive cocci in pairs and chains. WBC count is 24.2 from 27.7. Lactic acid has trended down from 2.8-1.9. Vitals are stabilizing. * Continue Unasyn, as blood culture is positive for GBS, sensitivity pending * Follow sensitivity report of blood cx * Clinically better, can be downgraded to telemetry floor. Still needs saturation, and cardiac monitoring for now. 2. Lower extremity wounds Patient has evidence of peripheral vascular disease with diminished pulsation over dorsalis pedis arteries. She has bilateral open wounds in her legs, which has a possibility of extending up to the bone, causing osteomyelitis. * Blood cultures showing group B streptococcus, which is usually sensitive to ampicillin. * Bone scan pending * Podiatry consult appreciated * Awaiting bone scan * Plan for debridement by podiatry services, depending on bone scan results * Daily wound care. Appreciate wound consultation. 3. Acute hypoxic respiratory failure could be secondary to HCAP, possible GNR. She has cough, with productive sputum which is rust colored. Although she mentions that her cough is not new, the sputum production is new. She has been exposed to a health care facility recently, making health care associated pneumonia/possible gram-negative darius PNA likely. Currently, she is on 2 L of oxygen via nasal cannula and oxygen saturation is 94%. * She admitted to having chronic cough and this noon, she admitted to having kusum colored sputum as well. [place] resp culture has been ordered and Guaifenesin was added for cough q6PRN. * Will follow [facility] * Continue TRC/nebs 4. Elevated troponins without EKG changes. Most likely due to demand ischemia in the setting of sepsis. * Around 1330 hours today, patient complained of chest heaviness, without chest pain, palpitation, shortness of breath, dizziness, nausea, vomiting, fever. She was still coughing, and a differential diagnosis of ACS, asthma, bronchitis, PNA , was considered. * Troponin was 0.13 and EKG did not show any new changes. * Next troponin and EKG have been ordered for 2000hrs, likely demand ischemia, but ACS needs to be ruled out. * Cardiology consult appreciated. * Awaiting echo results. 5. Electrolyte abnormalities. Repleting as needed. Target K>4, Mg>2. 6. Transaminitis. Most likely due to sepsis and fatty liver disease. Already trending down to normal. USG could not fully as well as the common bile duct though. Diet: Heart healthy diet DVT/Prophylaxis: pharmacological Code Status: Do Not Resucitate/Intubat Problem List: 1. Sepsis 2. Lactic acidosis 3. VASCULAR INSUFFICIENCY 4. Bilateral leg ulcer 5. CHF (congestive heart failure) 6. ARTHRITIS Pain Ratin Tomorrow's Labs & Rationales: CBC, BEP as she is septic and follow up lytes Plan DVT/Prophylaxis: pharmacological Code Status: Do Not Resucitate/Intubat JEFF WHITING MD 06/10/16 1521: Attending MD Review Statement Attending Sign Off Attending Cosign Statement: I have: examined this patient, reviewed [facility] EMR data, discussd w/resident/PA/ INFORMATION SYSTEMS SECURITY OFFICER, agreed w/resident/PA/INFORMATION SYSTEMS SECURITY OFFICER. Other Findings: Patient doing well today, though requiring initially 50% oxygen, now on 2L NC. Has a history of COPD, non-compliant with therapies. CTA chest negative for PE. Evidence of acute osteomyelitis of foot by x-ray. Has a history of recurrent UTIs. Blood cultures growing Group B strep. Plan - Downgrade to telemetry - Discontinue Vancomycin - Start Unasyn - Bone scan - Follow ID and podiatry recommendations - Follow blood cultures - Titrate down oxygen as tolerated - Continue breathing treatments - Continue home medications - DVT PPx - Continue home medications - DVT PPx - Continue home medications - DVT PPx - Titrate down oxygen as tolerated - Continue breathing treatments - Continue home medications - DVT PPx
--- NOTE | 2016-06-10 10:23 | NUR ---
@0800-PT ALERT AND ORIENTED. COOP. VSS. TITRATED TO 2L FROM 3LNC. O2SAT 96%. LUNGS CLEAR. DIM TO BS. DENIES SOB/CP. NSR HR 80S. BP STABLE. ECHO BEING DONE AT BEDSIDE AT THIS TIME. CHOPPED DIET PROVIDED. PT ST CATH THIS AM AT 0600, NEXT DUE AT 1200. VENOUS STATUS ULCERS TO BLE NOTED, DSG REMOVED AND ULCERS TO BLE SHINS ASSESSED BY DR ACOSTA AND THIS AM. + DIM PULSES NOTED TO R POST TIB AND L PEDAL. VENOUS ULCERS CLEANSED AND NEW XEROFORM AND TELFA DSG PLACED TO SITES, WRAPPED WITH KERLIX AND ELEVATED ON PILLOWS. NERVE STIM NOTED TO L BUTTOCKS. JORDAN COUGH NOTED. NEBS Q4HRS. CONT TO MONITOR CLOSELY. CALL CODY VASQUEZ.
--- NOTE | 2016-06-10 10:51 | Cons- Pulmonary ---
General Information and HPI Consulting Request Date of Consult: 06/10/16 Requested By: mary Reason for Consult: Hypoxic respiratory failure History of Present Illness: She is 70-year-old with reported COPD sleep apnea chronic lower extremity venous stasis ulcers admitted with hypoxia change in mental status. She was found to have strep bacteremia secondary to right lower extremity cellulitis and possible osteomyelitis. CTA was negative for pulmonary embolism chest x-ray showed a degree of atelectasis. She is presently alert awake comfortable without shortness of breath or respiratory complaints on low-flow nasal oxygen. Allergies/Medications Allergies: Coded Allergies: adhesive tape (UNKNOWN 06/09/16) Home Med List: Aspirin (Children's Aspirin) 81 MG TAB.CHEW 1 TAB PO DAILY HEART HEALTH ( Reported) Brinzolamide/Brimonidine Tart (Simbrinza 1%-0.2% Eye Drops) 1 %-0.2 % DROPS.SUSP 1 DROP TOP BID EYE (Reported) BUPROPION HCL (Bupropion XL) 300 MG TAB.ER.24H 1 TAB PO DAILY DEPRESSION ( Reported) CETIRIZINE HCL (Cetirizine HCl) 10 MG TABLET 1 TAB PO DAILY ALLERGIES ( Reported) Dexlansoprazole (Dexilant) 60 MG CAP.DR.BP 1 CAP PO BID GI (Reported) Docusate Sodium (Colace) 100 MG CAPSULE 1 TAB PO DAILY STOOL SOFTENER ( Reported) Folic Acid 0.4 MG TAB 2 TAB PO DAILY VITAMIN (Reported) Furosemide 40 MG TAB 1 TAB PO DAILY WATER PILL (Reported) Hydroxychloroquine Sulfate 200 MG TABLET 1 TAB PO BID ARTHRITIS (Reported) IMIPRAMINE HCL (Imipramine HCl) 25 MG TABLET 1 TAB PO DAILY ANTIDEPRESSENT ( Reported) Imipramine Pamoate (Imipramine Pm) 75 MG CAP 1 CAP PO AT BEDTIME DEPRESSION ( Reported) Ipratropium [place] (Atrovent HFA 12.9 GMS) 17 MCG/ACTUATION HFA.AER.AD 0.06 % INH BID BREATHING (Reported) Levothyroxine Sodium 50 MCG TABLET 1 TAB PO DAILY AC HYPOTHROID (Reported) Linaclotide (Linzess) 290 MCG CAP 1 CAP PO DAILY IBS (Reported) Lorazepam (Ativan) 0.5 MG TAB 1 TAB PO AT BEDTIME SLEEP (Reported) Mirabegron (Myrbetriq) [address] TAB PO DAILY BLADDER (Reported) Montelukast Sodium (Singulair) 10 MG TABLET 1 TAB PO DAILY ALLERGIES ( Reported) Morphine Sulfate (Morphine Sulfate ER) 30 MG TABLET.ER 1 TAB PO Q12 PAIN ( Reported) MULTIVITAMINS,THERAPEUTIC (Thera) 1 TAB TAB 1 TAB PO DAILY SUPPLEMENT ( Reported) POTASSIUM CHLORIDE (K-Dur) 20 MEQ TAB.ER.PRT 1 TAB PO BID VITAMIN (Reported) Pregabalin (Lyrica) 300 MG CAPSULE 1 CAP PO AT BEDTIME NEUROPATHY (Reported) Pregabalin (Lyrica) 75 MG CAPSULE 1 CAP PO BID NEUROPATHY (Reported) 6 AM AND 5 PM Sennosides/Docusate Sodium (Senokot-S Tablet) 8.6 MG-50 MG TABLET 1 TAB PO DAILY CONSTIPATION (Reported) AT 9 AM Spironolactone (Aldactone) 25 MG TABLET 1 TAB PO AT BED TIME WATER PILL ( Reported) Tizanidine HCl 4 MG TABLET 1 TAB PO BID MUSCLE SPASMS (Reported) MORNING AND NOON Tizanidine HCl 4 MG TABLET 2 TAB PO QPM MUSCLE SPASMS (Reported) Travoprost (Travatan Z Oph Donna 0.004% 2.5ML) 0.004 % DROPS 1 GTT OPH QPM DRY (Reported) TRAZODONE HCL (Trazodone HCl) 150 MG TAB 1 TAB PO QPM SLEEP (Reported) Venlafaxine HCl (Effexor XR) 150 MG CAP.ER.24H 2 CAP PO DAILY DEPRESSION ( Reported) Review of Systems Review of Systems Constitutional: Denies: chills, fever. Cardiovascular: Reports: edema. Denies: chest pain. Respiratory: Denies: cough, short of breath. GI: Denies: abdominal pain, diarrhea, melena. 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 [facility]: lives in senior living Smoking Status: Former Smoker Exam & Diagnostic Data Last 24 Hrs of Vital Signs/I&O Vital Signs Date Time Temp Pulse Resp B/P Pulse O2 O2 Flow FiO2 Ox Delivery Rate 06/11 799 97.9 79 24 118/62 96 Nasal 2.0L Cannula 06/10 0800 96 Nasal 2.0L Cannula 06/10 0400 99 Nasal 3.0L Cannula 06/10 0000 97 Nasal 3.0L Cannula 06/10 0000 97.7 82 20 113/53 97 Nasal 3.0L Cannula 06/09 2104 96 Nasal 3.0L Cannula 06/09 2000 95 Nasal 3.0L Cannula 06/09 1716 97 Nasal 4.0L Cannula 06/09 1600 97 Nasal 3.0L Cannula 06/09 1600 98.1 91 20 114/58 97 Nasal 4.0L Cannula 06/09 1200 Nasal 5.0L Cannula 06/09 1200 97.8 94 20 110/60 99 Nasal 4.0L Cannula 06/09 1050 Venti Mask 50% Intake & Output 06/10 1600 06/10 0800 06/10 0000 Intake Total 1240 1140 Output Total 700 300 Balance 540 840 Intake, IV 1190 900 Intake, Oral 50 240 Number 1 Bowel Movements Output, Urine 700 300 Patient 264 lb Weight Patient is comfortable lying flat oxygen saturation 2 L 96% exam for chest shows diminished breath sounds are no wheezes or crackles cardiac exam shows regular S1 and S2 abdominal exam is soft nontender exam of her extremities show there to be approximately 2 x 2 centimeter ulcer over the right lateral foot there is periwound erythema there is red and yellow fill there is no undermining sinus tracking or exposed bone over the left leg is a small approximately 1.5 x 1 cm ulcer with fiber and yellow fill there is no erythema undermining exposed bone there is chronic venous stasis changes and edema the right posterior tibial pulses palpable left dorsalis pedis pulses palpable Last 48 Hrs of Labs/Gene: Laboratory Tests 06/10/16 0430: Anion Gap 7, Estimated GFR > 60, Glucose 95, Calcium 8.7, Phosphorus 2.9, Magnesium 2.1, Total Bilirubin 0.3, AST 36, ALT 50, Albumin 2.9 L, CBC w Diff MAN DIFF ORDERED, RBC 4.09 L, MCV 79.4 L, MCH 25.6 L, RDW 16.1 H, MPV 8.8, Gran % 90.6 H, Lymphocytes % 5.2 L, Monocytes % 4.1, Eosinophils % 0, Basophils % 0.1, Absolute Granulocytes 21.9 H, Segmented Neutrophils 84 H, Band Neutrophils 7 H, Absolute Lymphocytes 1.3, Lymphocytes 7 L, Monocytes 2, Absolute Monocytes 1.0 H, Absolute Eosinophils 0, Absolute Basophils 0, Platelet Estimate ADEQUATE, Hypochromic-Microcytic 1+, Anisocytosis 1+, Microcytic Cells 1+, PUBS MCHC 32.3 L 06/09/16 1500: Troponin I 0.09 06/09/16 1148: Urine Color YEL, Urine Clarity CLEAR, Urine pH 6.0, Ur Specific [place] 1.025, Urine Protein NEG, Urine Ketones NEG, Urine Nitrite NEG, Urine Bilirubin NEG, Urine Urobilinogen 0.2, Ur Leukocyte Esterase NEG, Ur Microscopic EXAM NOT REQUIRED, Urine Hemoglobin NEG, Urine Glucose NEG 06/09/16 1045: PT 13.7 H, INR 1.31 H, D-Dimer 738 H 06/09/16 0900: Anion Gap 12, Estimated GFR > 60, BUN/Creatinine Ratio 15.7, Glucose 125 H, Lactic Acid 1.9, Calcium 8.8, Total Bilirubin 0.4, AST 42 H, ALT 60 H, Alkaline Phosphatase 261 H, Troponin I 0.14 *H, Total Protein 6.1 L, Albumin 3.3 L, Globulin 2.8, Albumin/Globulin Ratio 1.2, CBC w Diff MAN DIFF ORDERED, RBC 4.42, MCV 79.1 L, MCH 25.5 L, RDW 15.6 H, MPV 9.0, Gran % 96.1 H, Lymphocytes % 1.7 L, Monocytes % 2.2, Eosinophils % 0, Basophils % 0 L, Absolute Granulocytes 26.6 H, Segmented Neutrophils 73, Band Neutrophils 22 H, Absolute Lymphocytes 0.5 L, Lymphocytes 3 L, Monocytes 2, Absolute Monocytes 0.6, Absolute Eosinophils 0, Absolute Basophils 0, Poikilocytosis 1+, Anisocytosis 2+, Microcytic Cells 3+, Ovalocytes 1+, PUBS MCHC 32.2 L 06/09/16 0505: Lactic Acid 1.6 06/09/16 0200: pH 7.41, pCO2 30 L, pO2 84, HCO3 19 L, ABG O2 Sat (Measured) 97.0, P-50 (Temp Corrected) N, Carboxyhemoglobin 0.2 L, O2 Concentration % 6L, O2 Delivery Method NEB RX, Anion Gap 14, Estimated GFR > 60, BUN/Creatinine Ratio 17.1, Glucose 94, Lactic Acid 2.8 H, Calcium 9.6, Total Bilirubin 0.5, AST 57 H, ALT 78 H, Alkaline Phosphatase 346 H, Creatine Kinase 78, Troponin I 0.05, Pro-B- Natriuretic Pept 379 H, Total Protein 7.5, Albumin 4.2, Globulin 3.3, Albumin/ Globulin Ratio 1.3, CBC w Diff MAN DIFF ORDERED, RBC 4.88, MCV 79.2 L, MCH 25.1 L, RDW 15.9 H, MPV 8.7, Gran % 91.0 H, Lymphocytes % 5.2 L, Monocytes % 1.9, Eosinophils % 1.5, Basophils % 0.4, Absolute Granulocytes 17.4 H, Segmented Neutrophils 89 H, Band Neutrophils 2, Absolute Lymphocytes 1.0 L, Lymphocytes 6 L, Monocytes 1 L, Absolute Monocytes 0.4, Eosinophils 2, Absolute Eosinophils 0.3, Absolute Basophils 0.1, Platelet Estimate ADEQUATE, Hypochromic -Microcytic 1+, Poikilocytosis 1+, Anisocytosis 1+, Microcytic Cells 1+, Ovalocytes 1+, PUBS MCHC 31.7 L, Phlebotomy Draw Site RIGHT RADIAL, Fld Total RBCs Counted 100 Microbiology 06/09 1013 NASOPHARYN: Influenza Virus A & B Rapid Smear - COMP 06/09 08 UPPER RESP: Surveillance Culture - COMP 06/09 804 GI: Surveillance Culture - COMP 06/09 204 BLOOD: Blood Culture - COMP BETA STREP GROUP B 06/09 199 BLOOD: Blood Culture - COMP BETA STREP GROUP B Assessment/Plan Impression/Plan: 70-year-old woman reportedly with COPD sleep apnea admitted with strep sepsis secondary to soft tissue skin reaction in the setting of a venous stasis ulcer with possible complicating osteomyelitis. Respiratory status is improved oxygen is tapered to 2 L and can be further tapered. Hypoxia likely multifactorial due to possible underlying COPD and atelectasis Recommendations: Taper FiO2 saturations allow. Aggressive pulmonary toilet and incentive spirometry. Wound care should be aggressive wound cleansing leg elevation and moist wound care with Adaptic or Xeroform. Once slough has resolved she can be transitioned Aquacel Ag. Given abnormal distal pulses arterial ultrasound would be appropriate especially if surgery is being considered Consult Acknowledgment - Thank you for your consult request.
--- NOTE | 2016-06-10 13:15 | PN- Cardiology ---
Subjective Subjective: Clinically, the patient appears to be doing well from a cardiac standpoint today. She denies any shortness of breath or cardiac symptoms. Objective Vital Signs and I&Os Vital Signs Date Time Temp Pulse Resp B/P Pulse O2 O2 Flow FiO2 Ox Delivery Rate 06/10 1204 95 Nasal 2.0L Cannula 06/10 08 97.9 79 24 118/62 96 Nasal 2.0L Cannula 06/10 0800 96 Nasal 2.0L Cannula 06/10 0400 99 Nasal 3.0L Cannula 06/10 0000 97 Nasal 3.0L Cannula 06/10 0000 97.7 82 20 113/53 97 Nasal 3.0L Cannula 06/09 2104 96 Nasal 3.0L Cannula 06/09 2000 95 Nasal 3.0L Cannula 06/09 1716 97 Nasal 4.0L Cannula 06/09 1600 97 Nasal 3.0L Cannula 06/09 1600 98.1 91 20 114/58 97 Nasal 4.0L Cannula Intake & Output 06/10 1600 06/10 0806/10 0000 06/09 1600 06/09 0800 06/09 0000 Intake Total 1240 1140 1166 Output Total 700 300 400 Balance 540 840 766 Intake, IV 6218 460 8694 Intake, Oral 50 240 120 Number 1 0 Bowel Movements Output, Urine 700 300 400 Patient 264 lb 259 lb 259 lb Weight Physical Exam: General Appearance well developed female, alert and oriented with no cystic and distress Skin Multiple venous wounds on lower extremities, Chronic lower extremity skin changes HEENT normal Neck Supple, JVP normal, carotids normal bilaterally Cardiovascular Regular Rate, Normal S1, Normal S2, 1/6 systolic murmur left upper sternal border Lungs scattered rhonchi Abdomen Normal Bowel Sounds, Soft, No Tenderness, No Hepatospenomegaly, No Masses Neurological Disoriented, awake, in mild distress, grossly nonfocal Extremities No Clubbing, No Cyanosis, Vascular Normal Pulses, Pulses Symmetrical Current Medications: Current Medications Sig/[place] Start time Last Medication Dose Route Stop Time Status Admin Acetaminophen 650 MG Q8P PRN 06/09 0545 AC PO Albuterol Sulfate 3 ML EVERY 4 HRS/AWAKE 06/09 1200 AC 06/10 INH 1202 Ampicillin Sodium/ 3,000 MG Q6 06/09 1431 AC 06/10 Sulbactam Sodium IV 1153 Sodium Chloride 100 ML Aspirin 81 MG DAILY 03/04 1000 AC 06/10 PO 1007 Bupropion HCl 300 MG DAILY 06/09 1255 AC 06/10 PO 1007 Colesevelam HCl 1,875 MG BID 06/09 1300 DC 06/09 PO 1635 Folic Acid 1 MG DAILY 06/09 1000 AC 06/10 PO 1007 Heparin Sodium 5,000 UNIT Q8 06/09 0600 AC 06/10 (Porcine) SC 0559 Hydroxychloroquine 200 MG BID 06/09 1000 AC 06/10 Sulfate PO 1007 Imipramine HCl 25 MG QAM 06/10 1000 AC 06/10 PO 1007 Imipramine HCl 25 MG AT BEDTIME 06/09 2200 DC PO Imipramine HCl 75 MG AT BEDTIME 06/09 2200 AC 06/09 PO 2232 Ipratropium [place] 2.5 ML EVERY 4 HRS/AWAKE 06/09 1200 AC 06/10 INH 1202 Ketorolac 15 MG Q8P PRN 06/09 0545 AC Tromethamine IV Levothyroxine Sodium 0.05 MG DAILY AC 06/09 0700 AC 06/10 PO 0637 Mirabegron 25 MG DAILY 06/09 1730 AC 06/10 PO 1007 Multivitamins 1 TAB DAILY 06/10 1000 AC 06/10 PO 1007 Omeprazole 20 MG DAILY AC 06/09 0700 AC 06/10 PO 0637 Pregabalin 300 MG AT BEDTIME 06/09 2200 AC 06/09 PO 2231 Pregabalin 75 MG 0600,1700 06/09 1700 AC 06/10 PO 0559 Pregabalin 150 MG TID 06/09 1600 DC 06/09 PO 1634 Sodium Chloride 1,000 ML Q20H 06/09 0615 DC 06/09 IV 06/10 1214 0648 Vancomycin HCl 1,000 MG DAILY@04306/10 0430 CAN Dextrose/Water 250 ML IV Vancomycin HCl 1,500 MG DAILY@0430 06/10 0430 DC 06/10 Dextrose/Water 500 ML IV 0423 Venlafaxine HCl 300 MG DAILY 06/10 1000 AC 06/10 PO 1007 Venlafaxine HCl 225 MG DAILY 06/09 1304 DC 06/09 PO 1634 Results Last 48 Hrs of Labs/Mics: Laboratory Tests 06/10/16 0430: Anion Gap 7, Estimated GFR > 60, Glucose 95, Calcium 8.7, Phosphorus 2.9, Magnesium 2.1, Total Bilirubin 0.3, AST 36, ALT 50, Albumin 2.9 L, CBC w Diff MAN DIFF ORDERED, RBC 4.09 L, MCV 79.4 L, MCH 25.6 L, RDW 16.1 H, MPV 8.8, Gran % 90.6 H, Lymphocytes % 5.2 L, Monocytes % 4.1, Eosinophils % 0, Basophils % 0.1, Absolute Granulocytes 21.9 H, Segmented Neutrophils 84 H, Band Neutrophils 7 H, Absolute Lymphocytes 1.3, Lymphocytes 7 L, Monocytes 2, Absolute Monocytes 1.0 H, Absolute Eosinophils 0, Absolute Basophils 0, Platelet Estimate ADEQUATE, Hypochromic-Microcytic 1+, Anisocytosis 1+, Microcytic Cells 1+, PUBS MCHC 32.3 L 06/09/16 1500: Troponin I 0.09 06/09/16 1148: Urine Color YEL, Urine Clarity CLEAR, Urine pH 6.0, Ur Specific [place] 1.025, Urine Protein NEG, Urine Ketones NEG, Urine Nitrite NEG, Urine Bilirubin NEG, Urine Urobilinogen 0.2, Ur Leukocyte Esterase NEG, Ur Microscopic EXAM NOT REQUIRED, Urine Hemoglobin NEG, Urine Glucose NEG 06/09/16 1045: PT 13.7 H, INR 1.31 H, D-Dimer 738 H 06/09/16 0900: Anion Gap 12, Estimated GFR > 60, BUN/Creatinine Ratio 15.7, Glucose 125 H, Lactic Acid 1.9, Calcium 8.8, Total Bilirubin 0.4, AST 42 H, ALT 60 H, Alkaline Phosphatase 261 H, Troponin I 0.14 *H, Total Protein 6.1 L, Albumin 3.3 L, Globulin 2.8, Albumin/Globulin Ratio 1.2, CBC w Diff MAN DIFF ORDERED, RBC 4.42, MCV 79.1 L, MCH 25.5 L, RDW 15.6 H, MPV 9.0, Gran % 96.1 H, Lymphocytes % 1.7 L, Monocytes % 2.2, Eosinophils % 0, Basophils % 0 L, Absolute Granulocytes 26.6 H, Segmented Neutrophils 73, Band Neutrophils 22 H, Absolute Lymphocytes 0.5 L, Lymphocytes 3 L, Monocytes 2, Absolute Monocytes 0.6, Absolute Eosinophils 0, Absolute Basophils 0, Poikilocytosis 1+, Anisocytosis 2+, Microcytic Cells 3+, Ovalocytes 1+, PUBS MCHC 32.2 L 06/09/16 0505: Lactic Acid 1.6 06/09/16 020: pH 7.41, pCO2 30 L, pO2 84, HCO3 19 L, ABG O2 Sat (Measured) 97.0, P-50 (Temp Corrected) N, Carboxyhemoglobin 0.2 L, O2 Concentration % 6L, O2 Delivery Method NEB RX, Anion Gap 14, Estimated GFR > 60, BUN/Creatinine Ratio 17.1, Glucose 94, Lactic Acid 2.8 H, Calcium 9.6, Total Bilirubin 0.5, AST 57 H, ALT 78 H, Alkaline Phosphatase 346 H, Creatine Kinase 78, Troponin I 0.05, Pro-B- Natriuretic Pept 379 H, Total Protein 7.5, Albumin 4.2, Globulin 3.3, Albumin/ Globulin Ratio 1.3, CBC w Diff MAN DIFF ORDERED, RBC 4.88, MCV 79.2 L, MCH 25.1 L, RDW 15.9 H, MPV 8.7, Gran % 91.0 H, Lymphocytes % 5.2 L, Monocytes % 1.9, Eosinophils % 1.5, Basophils % 0.4, Absolute Granulocytes 17.4 H, Segmented Neutrophils 89 H, Band Neutrophils 2, Absolute Lymphocytes 1.0 L, Lymphocytes 6 L, Monocytes 1 L, Absolute Monocytes 0.4, Eosinophils 2, Absolute Eosinophils 0.3, Absolute Basophils 0.1, Platelet Estimate ADEQUATE, Hypochromic -Microcytic 1+, Poikilocytosis 1+, Anisocytosis 1+, Microcytic Cells 1+, Ovalocytes 1+, PUBS MCHC 31.7 L, Phlebotomy Draw Site RIGHT RADIAL, Fld Total RBCs Counted 100 Microbiology 06/09 1013 NASOPHARYN: Influenza Virus A & B Rapid Smear - COMP 06/09 804 UPPER RESP: Surveillance Culture - COMP 06/09 804 GI: Surveillance Culture - COMP 06/09 204 BLOOD: Blood Culture - COMP BETA STREP GROUP B 06/09 199 BLOOD: Blood Culture - COMP BETA STREP GROUP B Assessment/Plan Assessment/Plan Assessment: 1. Elevated troponin-at the present time, there is no evidence of an acute ischemic event. The minimally elevated troponin may be related to demand ischemia. The patient's troponin peaked at 0.14 with a subsequent normalization of the troponin. 2. History of coronary artery disease 3. SIRS/leukocytosis/probable sepsis/mental status changes with possible metabolic encephalopathy and positive blood cultures for gram-positive cocci 4. Hypoxia with possible acute on chronic HFpEF 5. Lower extremity ulceration with possible underlying osteomyelitis 6. Leukocytosis with possible sepsis. Recommendations: -At the present time, the patient appears stable from a cardiac standpoint and I would not recommend any further changes. -Echocardiogram is pending. -Further plans after the echocardiogram Continue telemetry? Yes
--- NOTE | 2016-06-10 14:02 | NUR ---
@1400-PT C/O CHEST TIGHTNESS. DENIES PAIN. O2SAT 92%. NC INCREASED TO 3L. HOUSESTAFF CALLED TO BEDSIDE FOR ASSESSMENT.
[2016-06-10 16:07] VITALS: BP 130/62
[2016-06-10 23:30] VITALS: BP 130/60
--- NOTE | 2016-06-11 07:55 | PN- Housestaff ---
DANILO DUARTE 06/11/16 0755: Subjective Follow-up For: Cellulitis right lower extremety Sepsis secondary to STrep bacteremia b/l lower extremeties wounds Depression CHF Subjective: Patient seen and examined. She complained of back pain and pain in her b/l lower extremeties. She was restarted on Morphine Po XR and dilaudid that she was taking at rehab for chronic back with with decreased dose due to fear of AMS ( she initially presented with AMS). Patient is eating and drinking well. Has been afebrile. Plan is for debridement in am. Review of Systems Constitutional: Reports: see HPI. Objective Last 24 Hrs of Vital Signs/I&O Vital Signs Date Time Temp Pulse Resp B/P Pulse O2 O2 Flow FiO2 Ox Delivery Rate 06/11 0000 Nasal 2.0L Cannula 06/10 2330 98.8 83 20 130/60 99 Nasal 3.0L Cannula 06/10 1649 94 Nasal 2.5L Cannula 06/10 1639 93 Nasal 2.0L Cannula 06/10 1607 97.6 87 20 130/62 94 03/05 1204 95 Nasal 2.0L Cannula 06/10 0800 97.9 79 24 118/62 96 Nasal 2.0L Cannula 06/10 0800 96 Nasal 2.0L Cannula Intake & Output 06/11 0800 / 0000 03/05 1600 Intake Total 100 980 Output Total 750 Balance 100 230 Intake, IV 500 Intake, Oral 100 480 Number 3 Bowel Movements Output, Urine 750 Patient 115.212 kg Weight Physical Exam General Appearance: Alert, Oriented X3, Cooperative Skin: No Rashes, No Breakdown HEENT: Atraumatic Neck: Supple Lymphatic: Cervical nl Cardiovascular: Normal S1, Normal S2, No Murmurs Lungs: dec breath sounds, mild crackles appreciated in right lung base Abdomen: Normal Bowel Sounds, Soft, No Tenderness, No Hepatospenomegaly Extremities: b/l lower extremties covered with dressing. Right medial melleolar wound had yellowish discharge and adherent material on top and surround skin was erythematous Current Medications: Current Medications Sig/Chula Start time Last Medication Dose Route Stop Time Status Admin Acetaminophen 1,000 MG ONCE ONE 06/11 929 DC N/A 1 UNIT IV 06/12 943 Acetaminophen 650 MG .STK-MED ONE 06/10 174 DC PO 06/10 174 Acetaminophen 650 MG Q8P PRN 06/09 0545 AC 06/10 PO 1744 Albuterol Sulfate 3 ML EVERY 4 HRS/AWAKE 06/09 1200 AC 06/11 INH 0838 Ampicillin Sodium/ 3,000 MG Q6 06/09 1431 AC 06/11 Sulbactam Sodium IV 0600 Sodium Chloride 100 ML Aspirin 81 MG DAILY 06/09 1000 AC 06/11 PO 0935 Bupropion HCl 300 MG DAILY 06/09 1255 AC 06/11 PO 0935 Calcium Carbonate 500 MG DAILY 06/11 1000 AC 06/11 PO 0934 Folic Acid 1 MG DAILY 06/09 1000 AC 06/11 PO 0935 Guaifenesin 10 ML .STK-MED ONE 06/10 1446 DC PO 06/10 1447 Guaifenesin/ 10 ML Q6P PRN 06/10 1445 AC 06/11 Dextromethorphan PO 1026 Heparin Sodium 5,000 UNIT Q8 06/09 0600 AC 06/11 (Porcine) SC 0600 Hydromorphone HCl 2 MG Q4P PRN 06/11 1115 AC PO Hydroxychloroquine 200 MG BID 06/09 1000 AC 06/11 Sulfate PO 0935 Imipramine HCl 25 MG QAM 06/10 1000 AC 06/11 PO 0935 Imipramine HCl 75 MG AT BEDTIME 06/09 2200 AC 06/10 PO 2301 Ipratropium [place] 2.5 ML EVERY 4 HRS/AWAKE 06/09 1200 AC 06/11 INH 0838 Ketorolac 15 MG .STK-MED ONE 06/11 0001 DC Tromethamine IM 06/11 0002 Ketorolac 15 MG Q8P PRN 06/09 0545 AC 06/11 Tromethamine IV 0640 Levothyroxine Sodium 0.05 MG DAILY AC 06/09 0700 AC 06/11 PO 0639 Mirabegron 25 MG DAILY 06/09 1730 AC 06/11 PO 0935 Morphine Sulfate 15 MG BID 06/11 1115 AC 06/11 PO 1207 Multivitamins 1 TAB DAILY 06/10 1000 AC 06/11 PO 0935 Omeprazole 20 MG DAILY AC 06/09 0700 AC 06/11 PO 0639 Pregabalin 300 MG AT BEDTIME 06/09 2200 AC 06/10 PO 2300 Pregabalin 75 MG 0600,1700 03 1700 AC 06/11 PO 0600 Venlafaxine HCl 300 MG DAILY 06/10 1000 AC 06/11 PO 0935 Last 24 Hrs of Lab/Gene Results Last 24 Hrs of Labs/Mics: Laboratory Tests 06/11/16 0930: Anion Gap 11, Estimated GFR > 60, BUN/Creatinine Ratio 16.7, CBC w Diff NO MAN DIFF REQ, RBC 4.34, MCV 78.7 L, MCH 25.2 L, RDW 15.9 H, MPV 9.2, Gran % 89.6 H, Lymphocytes % 7.7 L, Monocytes % 2.7, Eosinophils % 0, Basophils % 0 L, Absolute Granulocytes 16.0 H, Absolute Lymphocytes 1.4, Absolute Monocytes 0.5, Absolute Eosinophils 0, Absolute Basophils 0, PUBS MCHC 32.0 L 06/10/16 2055: Troponin I 0.11 *H 06/10/16 1440: Troponin I 0.13 *H Microbiology 06/10 143 LOWER RESP: Respiratory Culture - CAN Cancelled: SPECIMEN NOT RECEIVED IN LABORATORY 06/10 1434 LOWER RESP: Gram Stain - CAN Cancelled: SPECIMEN NOT RECEIVED IN LABORATORY Assessment/Plan Assessment: Patient is 70 year old female with PMH of CHF, rheumatoid arthritis, CAD, hypothyroidism, chronic pain syndrome, mood disorder, anxiety disorder, dysuria, major depressive disorder, COPD, pancreatitis, was brought from [facility] on 06/08/16 with chief complain of altered mental status and shivering. In ER, patient spiked a fever of 101 and was tachypenic, her labs were significant for leukocytosis of 19 and she had elevated lactic acid of 2.8. In ER, she was given Ceftriaxone, Azithromycin and Vancomycin in addition to loading dose of solumedrol and 40 IV lasix. Imaging as inpatient CXR: Limited study with markedly low lung volumes and probable bibasilar atelectasis. There is central vascular congestion and I cannot exclude mild interstitial edema. X-ray of the left tibia and fibula negative for osteomyelitis. X-ray of the right ankle reveals indistinctness of the cortex of the medial malleolus and possible periosteal reaction, suspicious for osteomyelitis CTA of the chest no evidence of acute or chronic emboli; no focal consolidation; bibasilar atelectasis, right greater than left Problem List Celulities right ankle Group B strep bacterimia Elevated Troponins ( Likely demand ischemia) Diastolic CHF Metabolic encephalopathy (Altered mental status on admission likely due to sepsis) Multifactorial Hypoxia due to underlysing COPD and ATelectasis Assessment and Plan Right ankle cellulitis with possible underlying osteomyeltis and left tibial ulcers Patient was initially started on Vancomycin, BC X 2 from 06/09/16 were significant for Beta Strep group B, Vanco was d/cd and patient switched to Unasyn. Infectious disease consult service on board. Podiatry following the patient, plan is for debridement after bone scan. Wound care on board. Will continue Xeroform and dry sterile dressing to the wounds bilaterally Elevated troponins likely demand Ischemia Patient complained of chest pressure yesterday, troponins were elevated to 0.14, trended down to 0.11, no EKG changes appreciated. cardiology consult service ( Dr. Frank was on board) History of Diastolic Heart Failure Patient takes 40 PO Lasix daily, which was initially held for volume status analysis the next day. WIll consider restarting her lasix. Will follow up repeat echocardiogram Elevated Alkaline phosphatase Probably due to underlyin osteomyelitis, will continue to monitor. Patient has a history of Anxiety and Major depressive disorder. Her home psyc meds continued including bupropion, imipramine, Venlafaxine History of Chornic pain - Lyrica continued 75 mg BID and 300 at bed time. Patient has a history of neurostimulator in the back Will continue Hydroxychloroquin 200 mg tab for RA Will continue levothyroxine 50 mcg for hypothyroidism For symptomatic SOB, TRC nebs as needed. DVT ppx SC heprin Patient is DNR/DNI Problem List: 1. Bilateral leg ulcer 2. Sepsis 3. Lactic acidosis 4. CHF (congestive heart failure) Pain Ratin Pain Location: chronic back pain b/l lower extremety wounds Pain Goal: Pain 4 or less Pain Plan: toradol morpghine dilaudid Tomorrow's Labs & Rationales: cbc MORRO VILLALOBOS MD 06/11/16 1154: Attending MD Review Statement Attending Statement Attending MD Statement: examined this patient, discuss w/resident/PA/SLOT OPERATIONS DIRECTOR, agreed w/resident/PA/SLOT OPERATIONS DIRECTOR, reviewed EMR data (avail), discussed with nursing, discussed with case mgmt Attending Assessment/Plan: 70-year-old with underlying obstructive sleep apnea, COPD, coronary artery disease who we are actively treating for group B strep bacteremia with cellulitis and likely osteomyelitis. The issue is the ulcer in the right medial malleolus and we are also working up arterial supply with an arterial Doppler. At this point the plan is to continue IV Unasyn, we cancelled the bone scan, Dr. Rojas is taking her to the OR tomorrow for debridement and possible bone biopsy. Dr. Aden did confirm that she will need a PICC line and likely 4 weeks of IV antibiotics for presumed osteomyelitis with bacteremia. She did make positive troponin likely demand ischemia in the setting of all of this and will confirm with cardiology about taking her off the monitor if her echocardiogram is okay.
--- NOTE | 2016-06-11 08:20 | ULTRASOUND REPORT ---
EXAMINATION: COLOR-FLOW AND SPECTRAL DUPLEX IMAGING OF THE BILATERAL LOWER EXTREMITY ARTERIAL SYSTEM. CLINICAL INFORMATION: 70-year-old female with nonhealing wounds of the bilateral lower extremities. COMPARISON: No similar prior examinations are available for comparison. RIGHT FEMORAL RUNOFF VELOCITIES: The right common femoral artery measures 133cm/s and is triphasic. The right profunda femoral artery measures 121cm/s and is triphasic. Right proximal superficial femoral artery measures 120 cm/s and is triphasic. Mid superficial femoral artery measures 40cm/s and is triphasic. Distal right superficial femoral artery measures 111cm/s and is triphasic. Right popliteal velocity measures 121cm/s and is triphasic. Posterior tibial velocity is 101 cm/s inflow is triphasic. Anterior tibial velocity is 59 cm/s and flow is biphasic. Dorsal pedis velocity is 122 cm/s inflow is triphasic. LEFT FEMORAL RUNOFF VELOCITIES: The left common femoral artery measures 144cm/s and is triphasic. The left profunda femoral artery measures 97cm/s and is triphasic. Left proximal superficial femoral artery measures 111 cm/s and is triphasic. Mid superficial femoral artery measures 121cm/s and is triphasic. Distal left superficial femoral artery measures 90cm/s and is triphasic. Left popliteal velocity measures 98cm/s and is triphasic. Posterior tibial velocity is 86cm/s and flow is triphasic. Anterior tibial velocity is 89cm/s and flow is biphasic. Dorsal pedis velocity is 75cm/s inflow is triphasic. IMPRESSION: Patent deep arterial systems of the bilateral lower extremities. Velocities are primarily triphasic. Subtle biphasic waveforms in the bilateral anterior tibial arteries suggest mild peripheral vascular disease. Decreased velocity within the midportion of the right superficial femoral artery is nonspecific but may be related to technical factors due to portable examination. If clinically indicated, further evaluation with a CTA lower extremity runoff may be obtained.
[2016-06-11 08:25] VITALS: BP 150/80
--- NOTE | 2016-06-11 08:47 | ECHOCARDIOGRAM REPORT ---
VITO SMITH Age: 70 : 1945 Gender: F Exam Date: 06/10/2016 08:47 Exam Location: [facility] Ht (in): 62 Wt (lb): 264 BSA: 2.36 BP: 113 / 53 Ordering Physician: GERHARD MURO MD Referring Physician: Fish Gottlieb MD Technologist: Natalya James VELMA Room Number: 109 Indications: SHORTNESS OF BREATH Rhythm: Sinus Technical Quality: Technically difficult study FINDINGS Left Ventricle Mild left ventricular enlargement. Low normal left ventricular systolic function. Left ventricular ejection fraction is estimated at 50-55%. No obvious regional wall motion abnormalities. Right Ventricle Normal right ventricular size and function. Right Atrium Normal right atrial size. Left Atrium Mild left atrial dilatation. Mitral Valve Mitral valve thickened. Mild mitral annular calcification. Mild mitral regurgitation. Aortic Valve Diffuse thickening (sclerosis) of the aortic valve cusps without reduced excursion. No aortic stenosis. No aortic regurgitation. Tricuspid Valve Tricuspid valve not well visualized, grossly normal. Mild to moderate tricuspid regurgitation. Right ventricular systolic pressure estimated to be elevated at 42 mmHg. Pulmonic Valve Pulmonic valve not well visualized, grossly normal. Trace pulmonic regurgitation. Pericardium No pericardial effusion. Great Vessels Normal size aortic root. CONCLUSIONS Mild left ventricular enlargement. Low normal left ventricular systolic function. Left ventricular ejection fraction is estimated at 50-55%. Mild left atrial dilatation. Mild mitral regurgitation. Mild to moderate tricuspid regurgitation. Trace pulmonic regurgitation. Fish Gottlieb M.D. (Electronically Signed) Final Date: 11 June 2016 08:46 MEASUREMENTS (Male / Female) Normal Values 2D ECHO LV Diastolic Diameter PLAX 5.5 cm 4.2 - 5.9 / 3.9 - 5.3 cm LV Systolic Diameter PLAX 3.7 cm 2.1 - 4.0 cm LV Fractional Shortening PLAX 32.7 % 25 - 46 % LV Ejection Fraction 2D Teich 60.6 % IVS Diastolic Thickness 0.9 cm LVPW Diastolic Thickness 1.0 cm LV Relative Wall Thickness 0.3 RV Internal Dim ED PLAX 3.0 cm 1.9 - 3.8 cm LVOT Diameter 1.9 cm Aortic Root Diameter 2.9 cm LA Systolic Diameter LX 4.7 cm 3.0 - 4.0 / 2.7 - 3.8 cm LA Volume 56.0 cm 18 - 58 / 22 - 52 cm Ascending Aorta Diameter 2.9 cm DOPPLER AV Peak Velocity 145.0 cm/s AV Peak Gradient 8.4 mmHg AV Mean Velocity 97.9 cm/s AV Mean Gradient 4.0 mmHg AV Velocity Time Integral 33.0 cm LVOT Peak Velocity 98.6 cm/s LVOT Peak Gradient 3.9 mmHg LVOT Mean Velocity 65.4 cm/s LVOT Mean Gradient 2.0 mmHg LVOT Velocity Time Integral 21.7 cm LVOT Stroke Volume 61.5 cm AV Area Cont Eq vti 1.9 cm AV Area Cont Eq pk 1.9 cm MV Peak Velocity 132.5 cm/s MV Peak Gradient 7.0 mmHg MV Mean Velocity 84.3 cm/s MV Mean Gradient 3.5 mmHg Mitral E Point Velocity 118.0 cm/s Mitral A Point Velocity 93.8 cm/s Mitral E to A Ratio 1.3 MV PHT Velocity 138.0 cm/s MV Deceleration [place] 886.0 cm/s MV Pressure Half Time 46.7 ms MV Area PHT 4.7 cm MV Deceleration Time 145.0 ms TR Peak Velocity 303.0 cm/s TR Peak Gradient 36.7 mmHg Right Atrial Pressure 5.0 mmHg Pulmonary Artery Systolic Pressu 41.7 mmHg Right Ventricular Systolic Press 41.7 mmHg PV Peak Velocity 106.0 cm/s PV Peak Gradient 4.5 mmHg PV Mean Velocity 72.4 cm/s PV Mean Gradient 2.0 mmHg PV Velocity Time Integral 25.0 cm LV E' Lateral Velocity 16.2 cm/s Mitral E to LV E' Lateral Ratio 7.3 LV E' Septal Velocity 12.9 cm/s Mitral E to LV E' Septal Ratio 9.1
--- NOTE | 2016-06-11 09:37 | PN- Pulmonary ---
Subjective HPI/Critical Care Issues: pt seen and examined afebrile htn 150/80 95% 2.5LNC right let discomfort dressings intact breathing stable Objective Current Medications: Current Medications Sig/Chula Start time Last Medication Dose Route Stop Time Status Admin Acetaminophen 1,000 MG ONCE ONE 06/11 0930 UNVr N/A 1 UNIT IV 06/11 0944 Acetaminophen 650 MG .STK-MED ONE 06/10 1741 DC PO 06/10 1742 Acetaminophen 650 MG Q8P PRN 06/09 0545 AC 06/10 PO 1744 Albuterol Sulfate 3 ML EVERY 4 HRS/AWAKE 06/09 1200 AC 06/11 INH 0838 Ampicillin Sodium/ 3,000 MG Q6 06/09 1431 AC 06/11 Sulbactam Sodium IV 0600 Sodium Chloride 100 ML Aspirin 81 MG DAILY 06/09 1000 AC 06/10 PO 1007 Bupropion HCl 300 MG DAILY 06/09 1255 AC 06/10 PO 1007 Calcium Carbonate 500 MG DAILY 06/11 1000 UNVr PO Folic Acid 1 MG DAILY 06/09 1000 AC 06/10 PO 1007 Guaifenesin 10 ML .STK-MED ONE 06/10 1446 DC PO 06/10 1447 Guaifenesin/ 10 ML Q6P PRN 06/10 1445 AC 06/10 Dextromethorphan PO 2047 Heparin Sodium 5,000 UNIT Q8 06/09 0600 AC 06/11 (Porcine) SC 0600 Hydroxychloroquine 200 MG BID 06/09 1000 AC 06/10 Sulfate PO 2300 Imipramine HCl 25 MG QAM 06/10 1000 AC 06/10 PO 1007 Imipramine HCl 75 MG AT BEDTIME 06/09 2200 AC 06/10 PO 2301 Ipratropium [place] 2.5 ML EVERY 4 HRS/AWAKE 06/09 1200 AC 06/11 INH 0838 Ketorolac 15 MG .STK-MED ONE 06/11 0001 DC Tromethamine IM 06/11 0002 Ketorolac 15 MG Q8P PRN 06/09 0545 AC 06/11 Tromethamine IV 0640 Levothyroxine Sodium 0.05 MG DAILY AC 06/09 0700 AC 06/11 PO 0639 Mirabegron 25 MG DAILY 06/09 1730 AC 06/10 PO 1007 Multivitamins 1 TAB DAILY 06/10 1000 AC 06/10 PO 1007 Omeprazole 20 MG DAILY AC 06/09 0700 AC 06/11 PO 0639 Pregabalin 300 MG AT BEDTIME 06/09 2200 AC 06/10 PO 2300 Pregabalin 75 MG 0600,1700 06/09 1700 AC 06/11 PO 0600 Sodium Chloride 1,000 ML Q20H 06/09 0615 DC / IV 06/10 1214 0648 Vancomycin HCl 1,500 MG DAILY@0430 06/10 0430 DC 06/10 Dextrose/Water 500 ML IV 0423 Venlafaxine HCl 300 MG DAILY 06/10 1000 AC 06/10 PO 1007 Vital Signs & I&O Last 24 Hrs of Vitals and I&O: Vital Signs Date Time Temp Pulse Resp B/P Pulse O2 O2 Flow FiO2 Ox Delivery Rate 06/11 0845 95 Nasal 2.5L Cannula 06/11 0825 98.1 87 20 150/80 98 Nasal 2.0L Cannula 06/11 0000 Nasal 2.0L Cannula 06/10 2330 98.8 83 20 130/60 99 Nasal 3.0L Cannula 06/10 1649 94 Nasal 2.5L Cannula 06/10 1639 93 Nasal 2.0L Cannula 06/10 1607 97.6 87 20 130/62 94 05 1204 95 Nasal 2.0L Cannula Intake & Output 06/11 1600 06/11 0800 06/11 0000 Intake Total 100 Output Total Balance 100 Intake, Oral 100 Patient 254 lb Weight Exam Other Physical Findings: gen awake and alert heent ncat cvs s1, s2, systolic murmur lungs diminished at bases ext dressing intact, chronic venous stasis Results Last 24 Hrs of Lab Results: Laboratory Tests 06/10/16 2055: Troponin I 0.11 *H 06/10/16 1440: Troponin I 0.13 *H Impression/Plan Impression/Plan Impression/Plan: Impression 70 year old woman - troponinemia - probable demand ischemia - sepsis secondary to group b strep - probable source right lower extremity - History of VTE - History of COPD - History of HONG Plan - Abx and soft tissue infection per ID, podiatry, wound care - taper o2 to a goal spo2 of >92% - TRC/Nebs - Hx of IVC filter - patient has in the past and continues to decline the following: - declines maintenance inhalers - declines CPAP therapy - VTE prophylaxis at all times
--- NOTE | 2016-06-11 10:02 | PN- Cardiology ---
Subjective Subjective: The patient reports that she is feeling well from a cardiac standpoint. No chest pain. No shortness breath. No palpitations. No diaphoresis. Objective Vital Signs and I&Os Vital Signs Date Time Temp Pulse Resp B/P Pulse O2 O2 Flow FiO2 Ox Delivery Rate 06/11 0845 95 Nasal 2.5L Cannula 06/11 0825 98.1 87 20 150/80 98 Nasal 2.0L Cannula 06/11 0000 Nasal 2.0L Cannula 06/10 2330 98.8 83 20 130/60 99 Nasal 3.0L Cannula 06/10 1649 94 Nasal 2.5L Cannula 06/10 1639 93 Nasal 2.0L Cannula 06/10 1607 97.6 87 20 130/62 94 06/10 1204 95 Nasal 2.0L Cannula Intake & Output 06/11 1600 06/11 0800 06/11 0000 06/10 1600 06/10 0806/10 0000 Intake Total 100 325 360 8584 1140 Output Total 650 750 700 300 Balance -550 100 230 540 840 Intake, IV 500 1190 900 Intake, Oral 100 100 480 50 240 Number 3 1 Bowel Movements Output, Urine 650 750 700 300 Patient 254 lb 264 lb Weight Physical Exam: Gen: NAD HEENT: normal Lungs: clear to auscultation, normal resp. effort Heart: RRR, S1, S2, 1/6 systolic murmur Abdomen: Soft, nontender, no masses Extremities: No clubbing, cyanosis, or edema. Neuro: Alert and oriented x 3, cranial nerves intact Current Medications: Current Medications Sig/Chula Start time Last Medication Dose Route Stop Time Status Admin Acetaminophen 1,000 MG ONCE ONE 06/11 929 UNVr N/A 1 UNIT IV 06/11 0944 Acetaminophen 650 MG .STK-MED ONE 06/10 1741 DC PO 06/10 1742 Acetaminophen 650 MG Q8P PRN 06/09 0545 AC 06/10 PO 1744 Albuterol Sulfate 3 ML EVERY 4 HRS/AWAKE 06/09 1200 AC 06/11 INH 0838 Ampicillin Sodium/ 3,000 MG Q6 06/09 1431 AC 06/11 Sulbactam Sodium IV 0600 Sodium Chloride 100 ML Aspirin 81 MG DAILY 06/09 1000 AC 06/11 PO 0935 Bupropion HCl 300 MG DAILY 06/09 1255 AC 06/11 PO 0935 Calcium Carbonate 500 MG DAILY 06/11 1000 UNVr 03/06 PO 0934 Folic Acid 1 MG DAILY 06/09 1000 AC 06/11 PO 0935 Guaifenesin 10 ML .STK-MED ONE 06/10 1446 DC PO 06/10 1447 Guaifenesin/ 10 ML Q6P PRN 06/10 1445 AC 06/10 Dextromethorphan PO 2047 Heparin Sodium 5,000 UNIT Q8 06/09 0600 AC 06/11 (Porcine) SC 0600 Hydroxychloroquine 200 MG BID 06/09 1000 AC 06/11 Sulfate PO 0935 Imipramine HCl 25 MG QAM 06/10 1000 AC 06/11 PO 0935 Imipramine HCl 75 MG AT BEDTIME 06/09 2200 AC 06/10 PO 2301 Ipratropium [place] 2.5 ML EVERY 4 HRS/AWAKE 06/09 1200 AC 06/11 INH 0838 Ketorolac 15 MG .STK-MED ONE 06/11 0001 DC Tromethamine IM 06/11 0002 Ketorolac 15 MG Q8P PRN 06/09 0545 AC 06/11 Tromethamine IV 0640 Levothyroxine Sodium 0.05 MG DAILY AC 06/09 0700 AC 06/11 PO 0639 Mirabegron 25 MG DAILY 06/09 1730 AC 06/11 PO 0935 Multivitamins 1 TAB DAILY 06/10 1000 AC 06/11 PO 0935 Omeprazole 20 MG DAILY AC 06/09 0700 AC 06/11 PO 0639 Pregabalin 300 MG AT BEDTIME 06/09 2200 AC 06/10 PO 2300 Pregabalin 75 MG 0600,1700 06/09 1700 AC 06/11 PO 0600 Sodium Chloride 1,000 ML Q20H 06/09 0615 DC 06/09 IV 06/10 1214 0648 Vancomycin HCl 1,500 MG DAILY@0430 06/10 0430 DC 06/10 Dextrose/Water 500 ML IV 0423 Venlafaxine HCl 300 MG DAILY 06/10 1000 AC 06/11 PO 0935 Results Last 48 Hrs of Labs/Mics: Laboratory Tests 06/11/16 0930: Sodium Pending, Potassium Pending, Chloride Pending, Carbon Dioxide Pending, Anion Gap Pending, BUN Pending, Creatinine Pending, BUN/Creatinine Ratio Pending , CBC w Diff Pending, WBC Pending, RBC Pending, Hgb Pending, Hct Pending, MCV Pending, MCH Pending, RDW Pending, Plt Count Pending, MPV Pending, PUBS MCHC Pending 06/10/16 2055: Troponin I 0.11 *H 06/10/16 1440: Troponin I 0.13 *H 06/10/16 0430: Anion Gap 7, Estimated GFR > 60, Glucose 95, Calcium 8.7, Phosphorus 2.9, Magnesium 2.1, Total Bilirubin 0.3, AST 36, ALT 50, Albumin 2.9 L, CBC w Diff MAN DIFF ORDERED, RBC 4.09 L, MCV 79.4 L, MCH 25.6 L, RDW 16.1 H, MPV 8.8, Gran % 90.6 H, Lymphocytes % 5.2 L, Monocytes % 4.1, Eosinophils % 0, Basophils % 0.1, Absolute Granulocytes 21.9 H, Segmented Neutrophils 84 H, Band Neutrophils 7 H, Absolute Lymphocytes 1.3, Lymphocytes 7 L, Monocytes 2, Absolute Monocytes 1.0 H, Absolute Eosinophils 0, Absolute Basophils 0, Platelet Estimate ADEQUATE, Hypochromic-Microcytic 1+, Anisocytosis 1+, Microcytic Cells 1+, PUBS MCHC 32.3 L 06/09/16 1500: Troponin I 0.09 06/09/16 1148: Urine Color YEL, Urine Clarity CLEAR, Urine pH 6.0, Ur Specific [place] 1.025, Urine Protein NEG, Urine Ketones NEG, Urine Nitrite NEG, Urine Bilirubin NEG, Urine Urobilinogen 0.2, Ur Leukocyte Esterase NEG, Ur Microscopic EXAM NOT REQUIRED, Urine Hemoglobin NEG, Urine Glucose NEG 06/09/16 1045: PT 13.7 H, INR 1.31 H, D-Dimer 738 H Microbiology 06/09 1013 NASOPHARYN: Influenza Virus A & B Rapid Smear - COMP Recent Imaging Studies: Echocardiogram: Mild left ventricular enlargement. Low normal left ventricular systolic function. Left ventricular ejection fraction is estimated at 50-55%. Mild left atrial dilatation. Mild mitral regurgitation. Mild to moderate tricuspid regurgitation. Trace pulmonic regurgitation. Lower extremity arterial Doppler: Patent deep arterial systems of the bilateral lower extremities. Velocities are primarily triphasic. Subtle biphasic waveforms in the bilateral anterior tibial arteries suggest mild peripheral vascular disease. Decreased velocity within the midportion of the right superficial femoral artery is nonspecific but may be related to technical factors due to portable examination. If clinically indicated, further evaluation with a CTA lower extremity runoff may be obtained. Assessment/Plan Assessment/Plan Assessment: 1. Peripheral arterial disease 2. Super ventricular tachycardia, status post ablation 3. Sepsis secondary to group B strep 4. Mild troponin elevation, likely demand ischemia Plan: * Continue aspirin. * Agree with IV antibiotics. * No further cardiac workup is indicated at this time. * Okay to discontinue telemetry. Continue telemetry? No
--- NOTE | 2016-06-11 10:55 | PN- Infect Dx ---
Subjective Subjective: Afebrile. She complains of her chronic pelvic pain secondary to interstitial cystitis Objective Last 24 Hrs of Vital Signs/I&O Vital Signs Date Time Temp Pulse Resp B/P Pulse O2 O2 Flow FiO2 Ox Delivery Rate 06/11 0845 95 Nasal 2.5L Cannula 06/11 0825 98.1 87 20 150/80 98 Nasal 2.0L Cannula 06/11 0000 Nasal 2.0L Cannula 06/10 2330 98.8 83 20 130/60 99 Nasal 3.0L Cannula 06/10 1649 94 Nasal 2.5L Cannula 06/10 1639 93 Nasal 2.0L Cannula 06/10 1607 97.6 87 20 130/62 94 06/10 1204 95 Nasal 2.0L Cannula Intake & Output 06/11 1600 06/11 0800 06/11 0000 Intake Total 100 100 Output Total 650 Balance -550 100 Intake, Oral 100 100 Output, Urine 650 Patient 254 lb Weight Physical Exam Other Physical Findings: She appears comfortable in no acute distress Lungs decreased breath sounds both bases Heart regular rhythm with no murmur Abdomen is obese, soft, mildly tender over the lower abdomen, with no guarding or rebound, positive bowel sounds Extremities right medial malleolar ulcer, with minimal surrounding erythema, tender on palpation, with a yellowish exudate at the base of the ulcer; pulses 1 + and equal Results Last 24 Hours of Lab Results: Laboratory Tests 06/11 06/10 06/10 0930 2055 1440 Chemistry Sodium Pending Potassium Pending Chloride Pending Carbon Dioxide Pending Anion Gap Pending BUN Pending Creatinine Pending BUN/Creatinine Ratio Pending Troponin I (< 0.11 ng/ml) 0.11 *H 0.13 *H Hematology CBC w Diff Pending WBC Pending RBC Pending Hgb Pending Hct Pending MCV Pending MCH Pending RDW Pending Plt Count Pending MPV Pending PUBS MCHC Pending Last 24 Hours of Gene Results: Blood cultures 2 June 09 positive for Group B strep Urine culture June 09 negative Recent Imaging Studies: Arterial Dopplers of both lower extremities June 10 reveal patent deep arterial systems of both lower extremities, with subtle biphasic waveforms in the bilateral anterior tibial arteries suggesting mild peripheral vascular disease Assessment/Plan Impression: Group B strep sepsis most likely secondary to her right medial malleolar ulcer, with x-ray suggesting osteomyelitis, though she has minimal surrounding inflammation. She remains afebrile though white blood cell count remains elevated (from yesterday) on Unasyn now Day 3 of treatment. She is scheduled for debridement in the a.m., at which time a specimen of bone can be submitted for pathology and culture. Suggestion: 1. Adequate pain relief given her chronic pain history 2. Await debridement of the right medial malleolus in the a.m. per Podiatry 3. Continue Unasyn pending above
[2016-06-11 11:14] LABS: ABSOLUTE BASOPHIL COUNT 0 /CUMM (0.0-0.2); ABSOLUTE EOSINOPHIL COUNT 0 /CUMM (0.0-0.7); ABSOLUTE LYMPH COUNT 1.4 /CUMM (1.2-3.4); ABSOLUTE MONOCYTE COUNT 0.5 /CUMM (0.10-0.60); BASOPHIL % 0 % (0.0-2.0); EOSINOPHIL % 0 % (0-5); HEMATOCRIT 34.1 % (37-47); MEAN CORPUSCULAR HGB 25.2 PG (27.0-31.0); MEAN CORPUSCULAR VOLUME 78.7 FL (81.0-99.0); MEAN PLATELET VOLUME 9.2 FL (7.4-10.4); PLATELET COUNT 191 /CUMM (130-400); RBC DISTRIBUTION WIDTH 15.9 % (11.5-14.5); RED BLOOD CELL CT 4.34 /CUMM (4.20-5.40); WHITE BLOOD CELL COUNT 17.9 /CUMM (4.8-10.8)
[2016-06-11 12:30] LABS: GRANULOCYTE % 89.6 % (42.2-75.2)
[2016-06-11] MEDS ORDERED: MORPHINE SULFAT30 M3 PO (13:57)
[2016-06-11] MEDS ORDERED: DILAUDID4 M1 PO (13:58)
[2016-06-11 17:15] VITALS: BP 142/78
[2016-06-12 01:03] VITALS: BP 140/80
--- NOTE | 2016-06-12 07:41 | PN- Housestaff ---
DANILO DUARTE 06/12/16 0741: Subjective Follow-up For: Cellulitis right lower extremety Sepsis secondary to STrep bacteremia b/l lower extremeties wounds Depression CHF Subjective: Patient seen and examined. Feels well. No new complains today. Her pain medication is increased to her previous home regimen that she was taking at rehab facility. Patient continues to be afebril, her CBC is pending from this am. Patient will go down for debridement at 10.30 am Review of Systems Constitutional: Reports: see HPI. Objective Last 24 Hrs of Vital Signs/I&O Vital Signs Date Time Temp Pulse Resp B/P Pulse O2 O2 Flow FiO2 Ox Delivery Rate 06/12 0851 98.0 89 20 170/100 91 Nasal 1.0L Cannula 06/12 0755 95 Nasal 2.0L Cannula 06/12 0103 98.3 85 18 140/80 96 Room Air 06/12 0000 94 Nasal 1.0L Cannula 06/11 1715 98.2 86 18 142/78 94 Nasal 1.0L Cannula 06/11 1640 97 Nasal 1.0L Cannula 06/11 1600 96 Nasal 1.0L Cannula Intake & Output 06/12 1600 06/12 0800 06/12 0000 Intake Total 200 300 Output Total 300 Balance -100 300 Intake, IV 200 Intake, Oral 0 300 Output, Urine 300 Physical Exam General Appearance: Alert, Oriented X3, Cooperative Skin: No Rashes HEENT: Atraumatic Neck: Supple Cardiovascular: Normal S1, Normal S2, No Murmurs Lungs: dec breath sounds b/l Abdomen: Normal Bowel Sounds, Soft, No Tenderness Neurological: Normal Tone Extremities: ulcer on medial milleous of right ankle, covered with yellowish purulent material Current Medications: Current Medications Sig/Chula Start time Last Medication Dose Route Stop Time Status Admin Acetaminophen 1,000 MG ONCE ONE 06/11 0930 DC N/A 1 UNIT IV 06/11 0944 Acetaminophen 650 MG Q8P PRN 06/09 0545 AC 06/10 PO 1744 Albuterol Sulfate 3 ML EVERY 4 HRS/AWAKE 06/09 1200 AC 06/12 INH 0753 Ampicillin Sodium/ 3,000 MG Q6 06/09 1431 AC 06/12 Sulbactam Sodium IV 0650 Sodium Chloride 100 ML Aspirin 81 MG DAILY 06/09 1000 AC 06/11 PO 0935 Bupropion HCl 300 MG DAILY 06/09 1255 AC 06/11 PO 0935 Calcium Carbonate 500 MG DAILY 06/11 1000 AC 06/11 PO 0934 Folic Acid 1 MG DAILY 06/09 1000 AC 06/11 PO 0935 Guaifenesin 10 ML .STK-MED ONE 06/11 2315 DC PO 06/11 2316 Guaifenesin 10 ML .STK-MED ONE 06/11 1017 DC PO 06/11 1018 Guaifenesin/Codeine 10 ML .STK-MED ONE 06/11 1021 DC Phosphate PO 06/11 1022 Guaifenesin/ 10 ML Q6P PRN 06/10 1445 AC 06/11 Dextromethorphan PO 2318 Heparin Sodium 5,000 UNIT Q8 06/09 0600 AC 06/12 (Porcine) SC 0703 Hydromorphone HCl 4 MG Q4P PRN 06/12 0745 AC PO Hydromorphone HCl 2 MG Q4P PRN 06/11 1115 DC 06/12 PO 0703 Hydroxychloroquine 200 MG BID 06/09 1000 AC 06/11 Sulfate PO 2158 Imipramine HCl 25 MG QAM 06/10 1000 AC 06/11 PO 0935 Imipramine HCl 75 MG AT BEDTIME 06/09 2200 AC 06/11 PO 2159 Ipratropium [place] 2.5 ML EVERY 4 HRS/AWAKE 06/09 1200 AC 06/12 INH 0753 Ketorolac 15 MG Q8P PRN 06/09 0545 AC 06/11 Tromethamine IV 0640 Levothyroxine Sodium 0.05 MG DAILY AC 06/09 0700 AC 06/12 PO 0652 Mirabegron 25 MG DAILY 06/09 1730 AC 06/11 PO 0935 Morphine Sulfate 30 MG BID 06/12 1000 AC PO Morphine Sulfate 15 MG BID 06/11 1115 DC 06/11 PO 2159 Multivitamins 1 TAB DAILY 06/10 1000 AC 06/11 PO 0935 Omeprazole 20 MG DAILY AC 06/09 0700 AC 06/12 PO 0652 Potassium Chloride 40 MEQ ONCE ONE 06/11 1315 DC 06/11 PO 06/11 1316 1421 Pregabalin 300 MG AT BEDTIME 06/09 2200 AC 06/11 PO 2158 Pregabalin 75 MG 0600,1700 06/09 1700 AC 06/12 PO 0650 Trazodone HCl 150 MG AT BEDTIME 06/11 2200 AC 06/11 PO 2158 Venlafaxine HCl 300 MG DAILY 06/10 1000 AC 06/11 PO 0935 Last 24 Hrs of Lab/Gene Results Last 24 Hrs of Labs/Mics: Laboratory Tests 06/11/16 0930: Anion Gap 11, Estimated GFR > 60, BUN/Creatinine Ratio 16.7, CBC w Diff NO MAN DIFF REQ, RBC 4.34, MCV 78.7 L, MCH 25.2 L, RDW 15.9 H, MPV 9.2, Gran % 89.6 H, Lymphocytes % 7.7 L, Monocytes % 2.7, Eosinophils % 0, Basophils % 0 L, Absolute Granulocytes 16.0 H, Absolute Lymphocytes 1.4, Absolute Monocytes 0.5, Absolute Eosinophils 0, Absolute Basophils 0, PUBS MCHC 32.0 L Assessment/Plan Assessment: Patient is 70 year old female with PMH of CHF, rheumatoid arthritis, CAD, hypothyroidism, chronic pain syndrome, mood disorder, anxiety disorder, dysuria, major depressive disorder, COPD, pancreatitis, was brought from [facility] on 06/08/16 with chief complain of altered mental status and shivering. In ER, patient spiked a fever of 101 and was tachypenic, her labs were significant for leukocytosis of 19 and she had elevated lactic acid of 2.8. In ER, she was given Ceftriaxone, Azithromycin and Vancomycin in addition to loading dose of solumedrol and 40 IV lasix. Imaging as inpatient CXR: Limited study with markedly low lung volumes and probable bibasilar atelectasis. There is central vascular congestion and I cannot exclude mild interstitial edema. X-ray of the left tibia and fibula negative for osteomyelitis. X-ray of the right ankle reveals indistinctness of the cortex of the medial malleolus and possible periosteal reaction, suspicious for osteomyelitis CTA of the chest no evidence of acute or chronic emboli; no focal consolidation; bibasilar atelectasis, right greater than left Problem List Celulities right ankle Group B strep bacterimia Elevated Troponins ( Likely demand ischemia) Diastolic CHF Metabolic encephalopathy (Altered mental status on admission likely due to sepsis) Multifactorial Hypoxia due to underlysing COPD and ATelectasis Assessment and Plan Right ankle cellulitis with possible underlying osteomyeltis and left tibial ulcers Patient was initially started on Vancomycin, BC X 2 from 06/09/16 were significant for Beta Strep group B, Vanco was d/cd and patient switched to Unasyn. Infectious disease consult service on board. Podiatry following the patient, plan is for debridement today. Wound care on board. Will continue Xeroform and dry sterile dressing to the wounds bilaterally Elevated troponins likely demand Ischemia Patient complained of chest pressure, troponins were elevated to 0.14, trended down to 0.11, no EKG changes appreciated. Cardiology consult service (Dr. Frank was on board). History of Diastolic Heart Failure Patient takes 40 PO Lasix daily, which was initially held for volume status analysis the next day. Lasix and spirinolactone still held. Cardiology on board. Echo shows ejection fraction of 50-55 % Elevated Alkaline phosphatase Probably due to underlyin osteomyelitis, will continue to monitor. Patient has a history of Anxiety and Major depressive disorder. Her home psyc meds continued including bupropion, imipramine, Venlafaxine History of Chornic pain - Lyrica continued 75 mg BID and 300 at bed time. Patient has a history of neurostimulator in the back. Dilaudid continued at her home dose of 4 mgs daily and Morphine extendid release 30 mg BID Will continue Hydroxychloroquin 200 mg tab for RA Will continue levothyroxine 50 mcg for hypothyroidism For symptomatic SOB, TRC nebs as needed. DVT ppx SC heprin Patient is DNR/DNI Problem List: 1. Bilateral leg ulcer 2. COPD exacerbation 3. CHF (congestive heart failure) Pain Ratin Pain Location: back, b/l legs Pain Goal: Pain 4 or less Pain Plan: tylenolprn for pain Tomorrow's Labs & Rationales: none MORRO VILLALOBOS MD 06/12/16 1123: Attending MD Review Statement Attending Statement Attending MD Statement: examined this patient, discuss w/resident/PA/PLANT BREEDER, agreed w/resident/PA/PLANT BREEDER, reviewed EMR data (avail), discussed with nursing, discussed with case mgmt, reviewed images Attending Assessment/Plan: Pt's opiate medications are now back to what she takes at [facility]. She has chronic pelvic pain from interstitial cystitis. She is going to the OR today for debridement of the right medial malleolus ulcer and Dr. Rojas will better help define whether there is osteomyelitis or not. We are treating group B strep bacteremia with a cellulitis and a probable osteomyelitis , talk to ID about questionable baseline ESR and depending on questionable osteo-then PICC line and 4-6 weeks of antibiotics.
[2016-06-12 08:51] VITALS: BP 170/100
--- NOTE | 2016-06-12 11:10 | NUR ---
CANCEL PT EVAL FOR TODAY, PT OFF FLOOR AT OR FOR PROCEDURE
--- NOTE | 2016-06-12 11:12 | Operative Report ---
Operative/Inv Procedure Report Surgery Date: 06/12/16 Name of Procedure: 1 open incision and drainage deep to the D fashion with exposure of the flexor tendon and tendon sheath multiple sites right ankle 2 bone biopsy right medial malleolus 3 intraoperative administration of ankle block anesthesia 4 excisional debridement Pre-Operative Diagnosis: 1 open necrotic wound right ankle 2 osteomyelitis right ankle 3 peripheral vascular disease Post-Operative Diagnosis: Same Estimated Blood Loss: less than 50ml Surgeon/Electrical System Specialist: ROCK CORADO DPM Anesthesia: moderate sedation, block Operative/Procedure Note Note: After obtaining informed consent the patient was brought to the operating room placed on the operating table in the supine position. The patient isn't securely fastened to the operating table utilizing safety belt. After administration of IV sedation, 10 mL of 0.5% Marcaine plain was infiltrated about the patient's right ankle. Right foot and ankle within scrubbed prepped and draped in usual aseptic manner. Attention directed to the right ankle, where a large full-thickness necrotic was identified. A 15 blade visualized sharply revised skin margins. The dissection was then carried down deep to the fashion with exposure of the flexor tendon and tendon sheath multiple sites, both proximally and distally. All necrotic nonviable infected tissue sharply evacuated wound bed. It 6 was then carried down to the periosteum overlying the medial malleolus which was incised reflected. Bone specimen was harvested for both microbiologic and pathologic inspection. Nipple was then irrigated with 3 L normal sterile saline fissure 50,000 units of bacitracin. Following this, the foot was redraped and the surgeon's top gloves were changed clean gloves. Any bleeding vessels identified were cauterized or ligated as encountered. Nylon retention sutures were placed through the bone biopsy site. Next, the foot was dressed with Xeroform 4 x 4's Kerlix and Saeed wrap. The patient is noted tolerate both procedure and anesthesia well and the patient was transported from the operating room to recovery with vital signs stable best assess intact all digits right foot.
--- NOTE | 2016-06-12 13:31 | Cons- Vascular Surgery ---
General Information and HPI Consulting Request Date of Consult: 06/12/16 Requested By: GRISELDA HOUSTON,MORRO Truong History of Present Illness: 70-year-old lady was admitted with altered mental status and hypoxemia. She has a history of CHF, COPD, CAD, and bipolar disorder. She also has a history of venous stasis ulcer involving her right medial malleolus. She has been seen by Dr. Shah in our office and was scheduled for radiofrequency ablation of the right superficial vein as an adjunct to treat her right medial malleolus ulcer. An arterial ultrasound of the right lower extremity showed triphasic waveforms from femoral down to her feet. I was asked to see the patient regarding perfusion to the right leg in the setting of right medial malleolus wound. Allergies/Medications Allergies: Coded Allergies: adhesive tape (UNKNOWN 06/09/16) Home Med List: Aspirin (Children's Aspirin) 81 MG TAB.CHEW 1 TAB PO DAILY HEART HEALTH ( Reported) Brinzolamide/Brimonidine Tart (Simbrinza 1%-0.2% Eye Drops) 1 %-0.2 % DROPS.SUSP 1 DROP TOP BID EYE (Reported) BUPROPION HCL (Bupropion XL) 300 MG TAB.ER.24H 1 TAB PO DAILY DEPRESSION ( Reported) CETIRIZINE HCL (Cetirizine HCl) 10 MG TABLET 1 TAB PO DAILY ALLERGIES ( Reported) Dexlansoprazole (Dexilant) 60 MG CAP.DR.BP 1 CAP PO BID GI (Reported) Docusate Sodium (Colace) 100 MG CAPSULE 1 TAB PO DAILY STOOL SOFTENER ( Reported) Folic Acid 0.4 MG TAB 2 TAB PO DAILY VITAMIN (Reported) Furosemide 40 MG TAB 1 TAB PO DAILY WATER PILL (Reported) Hydromorphone HCl (Dilaudid) 4 MG TABLET 1 TAB PO Q4PRN backpain (Reported) Hydroxychloroquine Sulfate 200 MG TABLET 1 TAB PO BID ARTHRITIS (Reported) IMIPRAMINE HCL (Imipramine HCl) 25 MG TABLET 1 TAB PO DAILY ANTIDEPRESSENT ( Reported) Imipramine Pamoate (Imipramine Pm) 75 MG CAP 1 CAP PO AT BEDTIME DEPRESSION ( Reported) Ipratropium [place] (Atrovent HFA 12.9 GMS) 17 MCG/ACTUATION HFA.AER.AD 0.06 % INH BID BREATHING (Reported) Levothyroxine Sodium 50 MCG TABLET 1 TAB PO DAILY AC HYPOTHROID (Reported) Linaclotide (Linzess) 290 MCG CAP 1 CAP PO DAILY IBS (Reported) Lorazepam (Ativan) 0.5 MG TAB 1 TAB PO AT BEDTIME SLEEP (Reported) Mirabegron (Myrbetriq) [address] TAB PO DAILY BLADDER (Reported) Montelukast Sodium (Singulair) 10 MG TABLET 1 TAB PO DAILY ALLERGIES ( Reported) Morphine Sulfate (Morphine Sulfate ER) 30 MG TABLET.ER 1 TAB PO Q12 PAIN ( Reported) MULTIVITAMINS,THERAPEUTIC (Thera) 1 TAB TAB 1 TAB PO DAILY SUPPLEMENT ( Reported) POTASSIUM CHLORIDE (K-Dur) 20 MEQ TAB.ER.PRT 1 TAB PO BID VITAMIN (Reported) Pregabalin (Lyrica) 300 MG CAPSULE 1 CAP PO AT BEDTIME NEUROPATHY (Reported) Pregabalin (Lyrica) 75 MG CAPSULE 1 CAP PO BID NEUROPATHY (Reported) 6 AM AND 5 PM Sennosides/Docusate Sodium (Senokot-S Tablet) 8.6 MG-50 MG TABLET 1 TAB PO DAILY CONSTIPATION (Reported) AT 9 AM Spironolactone (Aldactone) 25 MG TABLET 1 TAB PO AT BED TIME WATER PILL ( Reported) Tizanidine HCl 4 MG TABLET 1 TAB PO BID MUSCLE SPASMS (Reported) MORNING AND NOON Tizanidine HCl 4 MG TABLET 2 TAB PO QPM MUSCLE SPASMS (Reported) Travoprost (Travatan Z Oph Donna 0.004% 2.5ML) 0.004 % DROPS 1 GTT OPH QPM DRY (Reported) TRAZODONE HCL (Trazodone HCl) 150 MG TAB 1 TAB PO QPM SLEEP (Reported) Venlafaxine HCl (Effexor XR) 150 MG CAP.ER.24H 2 CAP PO DAILY DEPRESSION ( Reported) Past History Medical History Neurological: NONE EENT: cataracts Cardiovascular: CAD, CHF, chronic venous insuff, hypertension, myocardial infarction, PVD, SVT Respiratory: asthma, COPD, obstructive sleep apnea, pulmonary embolism Gastrointestinal: pancreatitis Hepatic: NONE Renal: OVERACTIVE BLADDER interstitial cystitis Musculoskeletal: chronic back pain, rheumatoid arthritis Psychiatric: bipolar disease Endocrine: hypothyroidism Blood Disorders: DVT Cancer(s): NONE 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 [facility] at Home: lives in skilled nursing Smoking Status: Former Smoker Review of Systems Review of Systems: Patient denies headache, dizziness, cough, palpitation, diarrhea or constipation Exam & Diagnostic Data Vital Signs and I&O Vital Signs Date Time Temp Pulse Resp B/P Pulse O2 O2 Flow FiO2 Ox Delivery Rate 06/12 0851 98.0 89 20 170/100 91 Nasal 1.0L Cannula 06/12 0800 90 Nasal 1.0L Cannula 06/12 0755 95 Nasal 1.0L Cannula 06/12 0103 98.3 85 18 140/80 96 Room Air 06/12 0000 94 Nasal 1.0L Cannula 06/11 1715 98.2 86 18 142/78 94 Nasal 1.0L Cannula 06/11 1640 97 Nasal 1.0L Cannula 06/11 1600 96 Nasal 1.0L Cannula Intake & Output 06/12 1600 06/12 0800 06/12 0000 06/11 1600 06/11 0800 06/11 0000 Intake Total 200 300 300 100 100 Output Total 300 850 650 Balance -100 300 -550 -550 100 Intake, IV 200 100 Intake, Oral 0 300 200 100 100 Number 1 Bowel Movements Output, Urine 300 850 650 Patient 254 lb 254 lb Weight Physical Exam: Patient is alert aorta 3 Cardiovascular: Regular rate and rhythm Lungs: Clear to auscultation bilaterally Abdomen: Obese, soft, nontender nondistended Extremities: There is a small right medial malleolus ulcer at this palpable pedal pulses. There is discoloration of the right leg Assessment/Plan Assessment/Plan 70-year-old lady with multiple medical issues and known superficial venous insufficiency causing right medial malleolus venous stasis ulcer who was scheduled for radiofrequency ablation of the superficial vein by Dr. Shah. She has palpable pedal pulses. There is no purulence. Arterial ultrasound findings showed triphasic flow throughout the right lower extremity. As such, I don't think she has any arterial perfusion issues. Recommendation will be to have the wound center see the patient for placement of compression wrap. She should follow with Dr. Shah after discharge. Consult Acknowledgment - Thank you for your consult request. Attending MD Review Statement Attending Statement Attending MD Statement: examined this patient, discuss w/resident/PA/SUPERVISOR LOCOMOTIVE
[2016-06-12 15:30] VITALS: BP 123/55
--- NOTE | 2016-06-12 15:58 | PN- Infect Dx ---
Subjective Subjective: Afebrile. She has no pain in the right foot but does note her chronic pelvic pain. Objective Last 24 Hrs of Vital Signs/I&O Vital Signs Date Time Temp Pulse Resp B/P Pulse O2 O2 Flow FiO2 Ox Delivery Rate 06/12 0851 98.0 89 20 170/100 91 Nasal 1.0L Cannula 06/12 0800 90 Nasal 1.0L Cannula 06/12 0755 95 Nasal 1.0L Cannula 06/12 0103 98.3 85 18 140/80 96 Room Air 06/12 0000 94 Nasal 1.0L Cannula 06/11 1715 98.2 86 18 142/78 94 Nasal 1.0L Cannula 06/11 1640 97 Nasal 1.0L Cannula 06/11 1600 96 Nasal 1.0L Cannula Intake & Output 06/12 1600 06/12 0800 06/12 0000 Intake Total 400 200 300 Output Total 700 300 Balance -300 -100 300 Intake, IV 200 Intake, Oral 400 0 300 Number 0 Bowel Movements Output, Urine 700 300 Physical Exam Other Physical Findings: She appears comfortable in no acute distress Lungs are clear Extremities right leg dressing intact Results Last 24 Hours of Lab Results: Laboratory Tests 06/12 1400 Chemistry Sodium (137 - 145 mmol/L) 141 Potassium (3.5 - 5.1 mmol/L) 3.2 L Chloride (98 - 107 mmol/L) 104 Carbon Dioxide (22 - 30 mmol/L) 26 Anion Gap (5 - 16) 12 BUN (7 - 17 mg/dL) 9 Creatinine (0.5 - 1.0 mg/dL) 0.5 Estimated GFR (>60 ml/min) > 60 BUN/Creatinine Ratio (7 - 25 %) 18.0 Last 24 Hours of Gene Results: OR culture June 12 labeled right ankle bone pending Assessment/Plan Impression: Stable status post debridement of the right medial malleolus and bone biopsy earlier today for presumed osteomyelitis with Group B strep sepsis presumably secondary to her infected/necrotic right medial malleolar ulcer. She remains afebrile on Unasyn now Day 4 of treatment. Suggestion: 1. Follow-up bone biopsy and culture 2. Repeat CBC in the a.m. 3. Consider need for PICC based on above 4. Continue Unasyn pending above
--- NOTE | 2016-06-12 18:53 | PN- Pulmonary ---
Subjective HPI/Critical Care Issues: pt seen and examined s/p bone bx doing well on 1LNC no pain at this time no dyspnea, no cp, no n/v/d/c Objective Current Medications: Current Medications Sig/Chula Start time Last Medication Dose Route Stop Time Status Admin Acetaminophen 650 MG Q8P PRN 06/09 0545 AC 06/10 PO 1744 Albuterol Sulfate 3 ML TID 06/12 1600 AC 06/12 INH 1312 Albuterol Sulfate 3 ML EVERY 4 HRS/AWAKE 06/09 1200 DC 06/12 INH 0753 Ampicillin Sodium/ 3,000 MG Q6 / 1431 AC 06/12 Sulbactam Sodium IV 1804 Sodium Chloride 100 ML Aspirin 81 MG DAILY 06/09 1000 AC 06/12 PO 0927 Bupropion HCl 300 MG DAILY 06/09 1255 AC 06/12 PO 0927 Calcium Carbonate 500 MG DAILY 06/11 1000 AC 06/12 PO 0929 Fentanyl Citrate 100 MCG .STK-MED ONE 06/12 1004 DC IM 06/12 1005 Folic Acid 1 MG DAILY 06/09 1000 AC 06/12 PO 0927 Guaifenesin 10 ML .STK-MED ONE 06/11 2315 DC PO 06/11 2316 Guaifenesin/ 10 ML Q6P PRN 06/10 1445 AC 06/12 Dextromethorphan PO 1655 Heparin Sodium 5,000 UNIT Q8 06/09 0600 AC 06/12 (Porcine) SC 1429 Hydromorphone HCl 4 MG Q4P PRN 06/12 0745 AC 06/12 PO 1813 Hydromorphone HCl 2 MG Q4P PRN 06/11 1115 DC 06/12 PO 0703 Hydroxychloroquine 200 MG BID 06/09 1000 AC 06/12 Sulfate PO 0927 Imipramine HCl 25 MG QAM 06/10 1000 AC 06/12 PO 0928 Imipramine HCl 75 MG AT BEDTIME 06/09 2200 AC 06/11 PO 2159 Ipratropium [place] 2.5 ML TID 06/12 1600 AC 06/12 INH 1311 Ipratropium [place] 2.5 ML EVERY 4 HRS/AWAKE 06/09 1200 DC 06/12 INH 0753 Ketorolac 15 MG Q8P PRN 06/09 0545 DC 06/11 Tromethamine IV 0640 Levothyroxine Sodium 0.05 MG DAILY AC 06/09 0700 AC 06/12 PO 0652 Midazolam HCl 2 MG .STK-MED ONE 06/12 1004 DC IM 06/12 1005 Mirabegron 25 MG DAILY 06/09 1730 AC 06/12 PO 0927 Morphine Sulfate 30 MG BID 06/12 1000 AC 06/12 PO 0929 Morphine Sulfate 15 MG BID 06/11 1115 DC 06/11 PO 2159 Multivitamins 1 TAB DAILY 06/10 1000 AC 06/12 PO 0927 Omeprazole 20 MG DAILY AC 06/09 0700 AC 06/12 PO 0652 Patient Medication 1 ED .STK-MED ONE 06/12 1409 DC Teaching ED 06/12 1410 Potassium Chloride 60 MEQ ONCE ONE 06/12 1600 DC 06/12 PO 06/12 1601 1655 Pregabalin 300 MG AT BEDTIME 06/09 2200 AC 06/11 PO 2158 Pregabalin 75 MG 0600,1700 06/09 1700 AC 06/12 PO 1655 Trazodone HCl 150 MG AT BEDTIME 06/11 2200 AC 06/11 PO 2158 Venlafaxine HCl 300 MG DAILY 06/10 1000 AC 06/12 PO 0927 Vital Signs & I&O Last 24 Hrs of Vitals and I&O: Vital Signs Date Time Temp Pulse Resp B/P Pulse O2 O2 Flow FiO2 Ox Delivery Rate 06/12 1600 92 Nasal 1.0L Cannula 06/12 1530 98.3 82 18 123/55 92 Nasal 1.0L Cannula 06/12 0851 98.0 89 20 170/100 91 Nasal 1.0L Cannula 06/12 0800 90 Nasal 1.0L Cannula 06/12 0755 95 Nasal 1.0L Cannula 06/12 0103 98.3 85 18 140/80 96 Room Air 06/12 0000 94 Nasal 1.0L Cannula Intake & Output 06/12 1600 06/12 0800 03 0000 Intake Total 400 200 300 Output Total 700 300 Balance -300 -100 300 Intake, IV 200 Intake, Oral 400 0 300 Number 0 Bowel Movements Output, Urine 700 300 Exam Other Physical Findings: gen awake and alert heent ncat cvs s1, s2, systolic murmur lungs diminished at bases ext dressing intact, chronic venous stasis Results Last 24 Hrs of Lab Results: Laboratory Tests 06/12/16 1400: Anion Gap 12, Estimated GFR > 60, BUN/Creatinine Ratio 18.0 06/12/16 0600: CBC w Diff Cancelled, WBC Cancelled, RBC Cancelled, Hgb Cancelled, Hct Cancelled , MCV Cancelled, MCH Cancelled, RDW Cancelled, Plt Count Cancelled, MPV Cancelled, PUBS MCHC Cancelled Impression/Plan Impression/Plan Impression/Plan: Impression 70 year old woman - group b strep - probable source right lower extremity - History of VTE - History of COPD - History of HONG Plan - Abx and soft tissue infection per ID, podiatry, wound care - taper o2 to a goal spo2 of >92% - TRC/Nebs - Hx of IVC filter - patient has in the past and continues to decline the following: - declines maintenance inhalers - declines CPAP therapy - VTE prophylaxis at all times Please taper o2 as tolerated, please assess o2 on room air to determine o2 needs at home
[2016-06-12 19:03] VITALS: BP 132/80
--- NOTE | 2016-06-12 19:35 | NUR ---
NURSING NOTE: PT ARRIVED TO FLOOR AT 1900. PT A&O, VSS CHARTED. GOLD LE [employer]ESSINGS CDI. PT ORIENTED TO ROOM AND CALL ROSS.
[2016-06-12 22:22] VITALS: BP 120/50
--- NOTE | 2016-06-13 07:28 | PN- Housestaff ---
See Addendum Subjective Follow-up For: Cellulitis right lower extremety Sepsis secondary to STrep bacteremia b/l lower extremeties wounds Depression CHF Subjective: Patient was seen and examined this morning. She had right leg wound debridement yesterday by Dr. Rojas. She reported mild pain in bilateral legs and severe 7 /10 left hip pain. She has OA of left hip but the pain seemed to be worse for some reason after the surgery yesterday, She also reported muscle spasm. Patient has history of interstitial cystitis with chronic lower abdominal pain, denied any burning with urination. Patient remained afebrile with stable vital signs, no overnight events reported by the nurse or the patient. Review of Systems Constitutional: Reports: see HPI. Objective Last 24 Hrs of Vital Signs/I&O Vital Signs Date Time Temp Pulse Resp B/P Pulse O2 O2 Flow FiO2 Ox Delivery Rate 06/13 1447 98.6 82 18 120/73 92 Nasal 2.0L Cannula 06/13 0845 95 Nasal 1.0L Cannula 06/13 0800 91 Nasal 1.5L Cannula 06/13 0729 97.4 87 20 100/74 91 Nasal 1.5L Cannula 06/13 0000 Nasal 1.0L Cannula 06/12 2222 100.5 80 19 120/50 90 Nasal 1.0L Cannula 06/12 2000 95 Nasal 1.0L Cannula 06/12 1903 99.1 84 20 132/80 91 Nasal 4.0L Cannula 06/12 1600 92 Nasal 1.0L Cannula Intake & Output 06/13 1600 06/13 0800 03/08 0000 Intake Total 590 120 Output Total 350 400 Balance -350 590 -280 Intake, IV 240 Intake, Oral 350 120 Number 0 0 Bowel Movements Output, Urine 350 400 Patient 115.666 kg Weight Physical Exam General Appearance: Alert, Oriented X3, Cooperative, No Acute Distress Skin: No Rashes HEENT: Atraumatic, PERRLA, EOMI, Mucous Membr. moist/pink Cardiovascular: Regular Rate, Normal S1, Normal S2, No Murmurs Lungs: Clear to Auscultation, Normal Air Movement Abdomen: Normal Bowel Sounds, Soft, No Tenderness Neurological: Normal Gait, Normal Speech, Strength at 5/5 X4 Ext, Normal Tone, Sensation Intact, Cranial Nerves 3-12 NL, Reflexes 2+ Extremities: No Clubbing, No Cyanosis, bilateral trace lower extremity edema Patient had debridement of right leg superficial venous ulcer Patient has left chronic ulcer with dressing Assessment/Plan Assessment: Patient is 70 year old female with PMH of CHF, rheumatoid arthritis, CAD, hypothyroidism, chronic pain syndrome, mood disorder, anxiety disorder, dysuria, major depressive disorder, COPD, pancreatitis, was brought from [facility] on 06/08/16 with chief complain of altered mental status and shivering. In ER, patient spiked a fever of 101 and was tachypenic, her labs were significant for leukocytosis of 19 and she had elevated lactic acid of 2.8. In ER, she was given Ceftriaxone, Azithromycin and Vancomycin in addition to loading dose of solumedrol and 40 IV lasix. Patient was initially admitted to ICU and then transferred to telemetry and finally landed in general medical floor yesterday. Imaging as inpatient CXR: Limited study with markedly low lung volumes and probable bibasilar atelectasis. There is central vascular congestion and I cannot exclude mild interstitial edema. X-ray of the left tibia and fibula negative for osteomyelitis. X-ray of the right ankle reveals indistinctness of the cortex of the medial malleolus and possible periosteal reaction, suspicious for osteomyelitis CTA of the chest no evidence of acute or chronic emboli; no focal consolidation; bibasilar atelectasis, right greater than left Problem list and plan #Right ankle cellulitis with possible underlying osteomyeltis and left tibial ulcers -Patient was initially started on Vancomycin, BC X 2 from 06/09/16 were significant for Beta Strep group B, Vanco was discontinued with and patient switched to Unasyn -Infectious disease consultation was obtained, thanks for recommendation -We'll continue Unasyn to treat group B strep sepsis presimbly secondary to infection/necrotic right medial malleolar ulcer -Unasyn 3000 mg every 6 IV DAY#5 -Patient had debridement of right medial malleolus ulcer with bone biopsy yesterday, POD#1 -We'll continue to follow up wound culture for antibiotic susceptibility and sensitivity -Continue to follow podiatry recommendation, patient is weightbearing as tolerated for physical therapy -Wound care consultation was obtained, recommendation for daily Xeroform leg elevation and a multilayer compression dressing. -Patient should follow up in wound center after discharge #Elevated troponins likely demand Ischemia -Patient complained of chest pressure on admission, troponins were elevated to 0.14, trended down to 0.11, no EKG changes appreciated -Cardiology consult service (Dr. Frank was on board) -Continue aspirin 81 mg daily #History of Diastolic Heart Failure -Continue to hold Lasix and spirinolactone, were held on admission -Cardiology recommendation where obtained, thanks for input -Echocardiogram was done on 06/10/16 Mild left ventricular enlargement. Low normal left ventricular systolic function. Left ventricular ejection fraction is estimated at 50-55%. Mild left atrial dilatation. Mild mitral regurgitation. Mild to moderate tricuspid regurgitation. Trace pulmonic regurgitation. 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 -Trended down 261<346 -AST and ALT within normal, where initially mildly elevated 57 and 78 respectively #History of Anxiety and Major depressive disorder -Continue home psych medication bupropion, imipramine (2 different doses 25 mg in the morning and 75 mg at bedtime), Venlafaxine, trazodone #History of Chornic pain -Patient has a history of neurostimulator in the back -Continue Lyrica 75 mg BID and 300 at bed time -Dilaudid continue home dose of 4 mg by mouth every 4 when necessary -Morphine extendid release 30 mg BID #History of neurogenic bladder and interstitial cystitis -Continue Mirabegron 25 mg daily #History of rheumatoid arthritis -Continue Hydroxychloroquin 200 mg tab for RA #History of hypothyroidism -Continue levothyroxine 50 mcg for hypothyroidism #History of COPD and sleep apnea -Patient is not on home oxygen and refused CPAP in the past -She is on 1.5 L oxygen this morning -Continue oxygen supplementation and taper oxygen to goal of SPO2 of more than 92% -Continue TRC -Continue Robitussin -Pulse oximetry without oxygen on rest was obtained today, oxygen saturation of 88% on room air resting -We will obtain a nocturnal pulse oximetry on room air tonight -Chest x-ray on 06/13/16 revealed 1. Findings are consistent with mild pulmonary edema with associated small bilateral pleural effusions 2. Bibasilar subsegmental atelectasis -Incentive Spirometry was ordered -DVT prophylaxis subcutaneous heparin -Code DNR/DNI -Diet heart healthy -Consultation cardiology, pulmonology, ID, vascular surgery, podiatry, wound care, PT Problem List: 1. Bilateral leg ulcer 2. Sepsis Pain Ratin Pain Location: Left hip pain Pain Goal: Pain 4 or less Pain Plan: Severe pain pathway Tomorrow's Labs & Rationales: CBC in setting of sepsis
[2016-06-13 07:29] VITALS: BP 100/74
[2016-06-13 08:18] LABS: ABSOLUTE BASOPHIL COUNT 0 /CUMM (0.0-0.2); ABSOLUTE EOSINOPHIL COUNT 0.2 /CUMM (0.0-0.7); ABSOLUTE GRANULOCYTE CT 5.9 /CUMM (1.4-6.5); GRANULOCYTE % 68.6 % (42.2-75.2); MEAN CORPUSCULAR HGB 25.1 PG (27.0-31.0)
[2016-06-13 09:03] LABS: ABSOLUTE LYMPH COUNT 1.7 /CUMM (1.2-3.4); ABSOLUTE MONOCYTE COUNT 0.8 /CUMM (0.10-0.60); BASOPHIL % 0.5 % (0.0-2.0); EOSINOPHIL % 2.2 % (0-5); HEMATOCRIT 32.2 % (37-47); MEAN CORPUSCULAR HGB CONC 31.9 G/DL (33.0-37.0); MEAN CORPUSCULAR VOLUME 78.7 FL (81.0-99.0); MEAN PLATELET VOLUME 9.2 FL (7.4-10.4); PLATELET COUNT 180 /CUMM (130-400); RED BLOOD CELL CT 4.09 /CUMM (4.20-5.40)
[2016-06-13 09:08] LABS: WHITE BLOOD CELL COUNT 8.6 /CUMM (4.8-10.8)
--- NOTE | 2016-06-13 09:43 | PN- Pulmonary ---
See Addendum Subjective HPI/Critical Care Issues: pt seen and examined doing well bedbound 1.5LNC saturating 91% no dyspnea, no cp, no n/v/d/c no fevers Objective Current Medications: Current Medications Sig/Chula Start time Last Medication Dose Route Stop Time Status Admin Acetaminophen 650 MG Q8P PRN 06/09 0545 AC 06/13 PO 0327 Albuterol Sulfate 3 ML TID 06/12 1600 AC 06/13 INH 0827 Ampicillin Sodium/ 3,000 MG Q6 06/09 1431 AC 06/13 Sulbactam Sodium IV 0549 Sodium Chloride 100 ML Aspirin 81 MG DAILY 06/09 1000 AC 06/13 PO 0937 Bupropion HCl 300 MG DAILY 06/09 1255 AC 06/13 PO 0936 Calcium Carbonate 500 MG DAILY 06/11 1000 AC 06/13 PO 0937 Fentanyl Citrate 100 MCG .STK-MED ONE 06/12 1004 DC IM 06/12 1005 Folic Acid 1 MG DAILY 06/09 1000 AC 06/13 PO 0937 Guaifenesin 10 ML .STK-MED ONE 06/12 1439 DC PO 06/12 1440 Guaifenesin/ 10 ML Q6P PRN 06/10 1445 AC 06/12 Dextromethorphan PO 2329 Heparin Sodium 5,000 UNIT Q8 06/09 0600 AC 06/13 (Porcine) SC 0549 Hydromorphone HCl 2 MG .STK-MED ONE 06/12 1145 DC IM 06/12 1146 Hydromorphone HCl 4 MG Q4P PRN 06/12 0745 AC 06/12 PO 2335 Hydroxychloroquine 200 MG BID 06/09 1000 AC 06/13 Sulfate PO 0936 Imipramine HCl 25 MG QAM 06/10 1000 AC 06/13 PO 0937 Imipramine HCl 75 MG AT BEDTIME 06/09 2200 AC 06/12 PO 2103 Ipratropium [place] 2.5 ML TID 06/12 1600 AC 06/13 INH 0827 Ketorolac 15 MG Q8P PRN 06/09 0545 DC 06/11 Tromethamine IV 0640 Levothyroxine Sodium 0.05 MG DAILY AC 06/09 0700 AC 06/13 PO 0548 Midazolam HCl 2 MG .STK-MED ONE 06/12 1004 DC IM 06/12 1005 Mirabegron 25 MG DAILY 06/09 1730 AC 06/13 PO 0936 Morphine Sulfate 30 MG BID 06/12 1000 AC 06/13 PO 0936 Multivitamins 1 TAB DAILY 06/10 1000 AC 06/13 PO 0936 Omeprazole 20 MG DAILY AC 06/09 07 AC 06/13 PO 0548 Patient Medication 1 ED .STK-MED ONE 06/12 1409 DC Teaching ED 06/12 1410 Potassium Chloride 60 MEQ ONCE ONE 06/12 1600 DC 06/12 PO 06/12 1601 1655 Pregabalin 300 MG AT BEDTIME 06/09 2200 AC 06/12 PO 2104 Pregabalin 75 MG 0600,1700 06/09 1700 AC 06/13 PO 0558 Trazodone HCl 150 MG AT BEDTIME 06/11 2200 AC 06/12 PO 2103 Venlafaxine HCl 300 MG DAILY 06/10 1000 AC 06/13 PO 0936 Vital Signs & I&O Last 24 Hrs of Vitals and I&O: Vital Signs Date Time Temp Pulse Resp B/P Pulse O2 O2 Flow FiO2 Ox Delivery Rate 06/13 728 97.4 87 20 100/74 91 Nasal 1.5L Cannula 06/13 0000 Nasal 1.0L Cannula 06/12 2222 100.5 80 19 120/50 90 Nasal 1.0L Cannula 06/12 2000 95 Nasal 1.0L Cannula 06/12 1903 99.1 84 20 132/80 91 Nasal 4.0L Cannula 06/12 1600 92 Nasal 1.0L Cannula 06/12 1530 98.3 82 18 123/55 92 Nasal 1.0L Cannula Intake & Output 06/13 1600 06/13 0800 06/13 0000 Intake Total 590 120 Output Total 400 Balance 590 -280 Intake, IV 240 Intake, Oral 350 120 Number 0 0 Bowel Movements Output, Urine 400 Patient 255 lb Weight Exam Other Physical Findings: gen awake and alert heent ncat cvs s1, s2, systolic murmur lungs diminished at bases ext dressing intact, chronic venous stasis Results Last 24 Hrs of Lab Results: Laboratory Tests 06/13/16 0715: Anion Gap 7, Estimated GFR > 60, BUN/Creatinine Ratio 17.1, CBC w Diff NO MAN DIFF REQ, RBC 4.09 L, MCV 78.7 L, MCH 25.1 L, RDW 16.0 H, MPV 9.2, Gran % 68.6, Lymphocytes % 19.2 L, Monocytes % 9.5 H, Eosinophils % 2.2, Basophils % 0.5, Absolute Granulocytes 5.9, Absolute Lymphocytes 1.7, Absolute Monocytes 0.8 H, Absolute Eosinophils 0.2, Absolute Basophils 0, PUBS MCHC 31.9 L 06/12/16 1400: Anion Gap 12, Estimated GFR > 60, BUN/Creatinine Ratio 18.0 Impression/Plan Impression/Plan Impression/Plan: Impression 70 year old woman - group b strep - probable source right lower extremity - History of VTE - History of COPD - History of HONG Plan - Abx and soft tissue infection per ID, podiatry, wound care - taper o2 to a goal spo2 of >92% - TRC/Nebs - Hx of IVC filter - patient has in the past and continues to decline the following: - declines maintenance inhalers - declines CPAP therapy - VTE prophylaxis at all times Please taper o2 as tolerated, please assess o2 on room air to determine o2 needs at home please check nocturnal oximetry on room air overnight
--- NOTE | 2016-06-13 10:28 | NUR ---
PHYSICAL THERAPY: RECIEVED CONSULT ORDERS, REVIEWED CHART. PATIENT S/P R WOUND DEBRIDEMENT IN OR 06/12/2016; AT THIS TIME MD & RN UNSURE OF WB STATUS; WILL AWAIT WB STATUS PRIOR TO EVALAUTION; F/U APPROPRIATE.
--- NOTE | 2016-06-13 11:35 | Transfer of Care Summary ---
Hospital Course Course Hospital Course: Patient is 70 year old female with PMH of CHF, rheumatoid arthritis, CAD, hypothyroidism, chronic pain syndrome, mood disorder, anxiety disorder, dysuria, major depressive disorder, COPD, pancreatitis, was brought from [facility] on 06/08/16 with chief complain of altered mental status and shivering. In ER, patient spiked a fever of 101 and was tachypenic, her labs were significant for leukocytosis of 19 and she had elevated lactic acid of 2.8. In ER, she was given Ceftriaxone, Azithromycin and Vancomycin in addition to loading dose of solumedrol and 40 IV lasix. Imaging as inpatient CXR: Limited study with markedly low lung volumes and probable bibasilar atelectasis. There is central vascular congestion and I cannot exclude mild interstitial edema. X-ray of the left tibia and fibula negative for osteomyelitis. X-ray of the right ankle reveals indistinctness of the cortex of the medial malleolus and possible periosteal reaction, suspicious for osteomyelitis CTA of the chest no evidence of acute or chronic emboli; no focal consolidation; bibasilar atelectasis, right greater than left Patient was seen and treated for the following problems Celulities right ankle Group B strep bacterimia Elevated Troponins ( Likely demand ischemia) Diastolic CHF Metabolic encephalopathy (Altered mental status on admission likely due to sepsis) Multifactorial Hypoxia due to underlysing COPD and ATelectasis Right ankle cellulitis with possible underlying osteomyeltis and left tibial ulcers Patient was initially started on Vancomycin, BC X 2 from 06/09/16 were significant for Beta Strep group B, Vanco was d/cd and patient switched to Unasyn. Infectious disease consult service on board. Podiatry following the patient, Patient had debridement doen yesterday. Wound care on board. Will continue Xeroform and dry sterile dressing to the wounds bilaterally Elevated troponins likely demand Ischemia Patient complained of chest pressure, troponins were elevated to 0.14, trended down to 0.11, no EKG changes appreciated. Cardiology consult service (Dr. Frank was on board). F/up their recommendations. History of Diastolic Heart Failure Patient takes 40 PO Lasix daily, which was initially held for volume status. Lasix and spirinolactone were held on admission. Need to clarify [facility] regarding restarting of the medications. Patient had echo which showed ejection fraction of 50-55% Patient has a history of Anxiety and Major depressive disorder. Her home psyc meds were continued including bupropion, imipramine, Venlafaxine History of Chornic pain - Lyrica continued 75 mg BID and 300 at bed time. Patient has neurostimulator in the back. Dilaudid continued at her home dose of 4 mgs daily and Morphine extendid release 30 mg BID Please continue Hydroxychloroquin 200 mg tab for RA Please continue levothyroxine 50 mcg for hypothyroidism Assessment/Plan: as above
--- NOTE | 2016-06-13 11:55 | Cons- Wound Care ---
General Information and HPI Consulting Request Date of Consult: 06/13/16 Requested By: RODERICK GARCIA MD Reason for Consult: Left leg venous stasis ulcer present on admission. History of Present Illness: Patient is 70-year-old woman with multiple medical problems who is cared for for a right ankle ulcer and left leg ulcers thought to be venous stasis in origin. She has no evidence of significant peripheral vascular disease. She was to undergo vein closure per presented with strep sepsis and possible osteomyelitis of her right ankle. She has persistent left leg wounds. Allergies/Medications Allergies: Coded Allergies: adhesive tape (UNKNOWN 06/09/16) Home Med List: Aspirin (Children's Aspirin) 81 MG TAB.CHEW 1 TAB PO DAILY HEART HEALTH ( Reported) Brinzolamide/Brimonidine Tart (Simbrinza 1%-0.2% Eye Drops) 1 %-0.2 % DROPS.SUSP 1 DROP TOP BID EYE (Reported) BUPROPION HCL (Bupropion XL) 300 MG TAB.ER.24H 1 TAB PO DAILY DEPRESSION ( Reported) CETIRIZINE HCL (Cetirizine HCl) 10 MG TABLET 1 TAB PO DAILY ALLERGIES ( Reported) Dexlansoprazole (Dexilant) 60 MG CAP.DR.BP 1 CAP PO BID GI (Reported) Docusate Sodium (Colace) 100 MG CAPSULE 1 TAB PO DAILY STOOL SOFTENER ( Reported) Folic Acid 0.4 MG TAB 2 TAB PO DAILY VITAMIN (Reported) Furosemide 40 MG TAB 1 TAB PO DAILY WATER PILL (Reported) Hydromorphone HCl (Dilaudid) 4 MG TABLET 1 TAB PO Q4PRN backpain (Reported) Hydroxychloroquine Sulfate 200 MG TABLET 1 TAB PO BID ARTHRITIS (Reported) IMIPRAMINE HCL (Imipramine HCl) 25 MG TABLET 1 TAB PO DAILY ANTIDEPRESSENT ( Reported) Imipramine Pamoate (Imipramine Pm) 75 MG CAP 1 CAP PO AT BEDTIME DEPRESSION ( Reported) Ipratropium Filion (Atrovent HFA 12.9 GMS) 17 MCG/ACTUATION HFA.AER.AD 0.06 % INH BID BREATHING (Reported) Levothyroxine Sodium 50 MCG TABLET 1 TAB PO DAILY AC HYPOTHROID (Reported) Linaclotide (Linzess) 290 MCG CAP 1 CAP PO DAILY IBS (Reported) Lorazepam (Ativan) 0.5 MG TAB 1 TAB PO AT BEDTIME SLEEP (Reported) Mirabegron (Myrbetriq) [address] TAB PO DAILY BLADDER (Reported) Montelukast Sodium (Singulair) 10 MG TABLET 1 TAB PO DAILY ALLERGIES ( Reported) Morphine Sulfate (Morphine Sulfate ER) 30 MG TABLET.ER 1 TAB PO Q12 PAIN ( Reported) MULTIVITAMINS,THERAPEUTIC (Thera) 1 TAB TAB 1 TAB PO DAILY SUPPLEMENT ( Reported) POTASSIUM CHLORIDE (K-Dur) 20 MEQ TAB.ER.PRT 1 TAB PO BID VITAMIN (Reported) Pregabalin (Lyrica) 300 MG CAPSULE 1 CAP PO AT BEDTIME NEUROPATHY (Reported) Pregabalin (Lyrica) 75 MG CAPSULE 1 CAP PO BID NEUROPATHY (Reported) 6 AM AND 5 PM Sennosides/Docusate Sodium (Senokot-S Tablet) 8.6 MG-50 MG TABLET 1 TAB PO DAILY CONSTIPATION (Reported) AT 9 AM Spironolactone (Aldactone) 25 MG TABLET 1 TAB PO AT BED TIME WATER PILL ( Reported) Tizanidine HCl 4 MG TABLET 1 TAB PO BID MUSCLE SPASMS (Reported) MORNING AND NOON Tizanidine HCl 4 MG TABLET 2 TAB PO QPM MUSCLE SPASMS (Reported) Travoprost (Travatan Z Oph Donna 0.004% 2.5ML) 0.004 % DROPS 1 GTT OPH QPM DRY (Reported) TRAZODONE HCL (Trazodone HCl) 150 MG TAB 1 TAB PO QPM SLEEP (Reported) Venlafaxine HCl (Effexor XR) 150 MG CAP.ER.24H 2 CAP PO DAILY DEPRESSION ( Reported) Review of Systems Review of Systems: She denies history of claudication Past History Travel History Traveled to [place] past 21 day No Medical History Neurological: NONE EENT: cataracts Cardiovascular: CAD, CHF, chronic venous insuff, hypertension, myocardial infarction, PVD, SVT Respiratory: asthma, COPD, obstructive sleep apnea, pulmonary embolism Gastrointestinal: pancreatitis Hepatic: NONE Renal: OVERACTIVE BLADDER interstitial cystitis Musculoskeletal: chronic back pain, rheumatoid arthritis Psychiatric: bipolar disease Endocrine: hypothyroidism Blood Disorders: DVT Cancer(s): NONE 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 [facility]idential [facility] at Home: [facility] Smoking Status: Former Smoker Exam & Diagnostic Data Vital Signs and I&O Vital Signs Result Date Time Pulse Ox 95 06/13 844 O2 Delivery Nasal Cannula 06/13 844 O2 Flow Rate 1.0L 06/13 844 B/P 100/74 06/13 728 Temp 97.4 06/13 728 Pulse 87 06/13 728 Resp 20 06/13 728 Intake & Output 06/13 0000 06/12 1600 06/12 08 Intake Total 120 400 200 Output Total 400 700 300 Balance -280 -300 -100 Intake, IV 200 Intake, Oral 120 400 0 Number 0 0 Bowel Movements Output, Urine 400 700 300 Exam of the left leg shows there be chronic increased pigmentation secondary to venous stasis. There are 2 smaller wounds measuring approximately 1.5 x 1.5 cm and 0.6 x 0.6 cm which have primarily red fill without undermining sinus tracking periwound erythema or exposed bone. The dorsalis pedis is strongly palpable. Operative debridement site of the right ankle was left intact pending dressing change by Dr. Rojas Assessment/Plan Impression/Plan: 70-year-old woman without evidence peripheral vascular disease has had chronic venous stasis ulcers present on admission status post biopsy for possible osteomyelitis in view of strep sepsis and abnormal radiograph. Left lower extremity ulcers appear clean and appears to be adequate distal circulation. Recommend daily Xeroform leg elevation and a multilayer compression dressing will be applied. She can be followed in the wound center after discharge Consult Acknowledgment - Thank you for your consult request.
--- NOTE | 2016-06-13 12:54 | NUR ---
NURSING NOTE: PCXR BEING DONE AT BEDSIDE PER MD ORDER. O2 1.5L NC 91%. PT USING IS. R.T FOLLOWING. UNABLE TO CHECK O2 SAT WITH AMBULATION AT THIS TIME; PHYSICAL THERAPY AWAITING CLARIFICATION FOR WEIGHT BEARING STATUS. RESOURCE SPECIALIST AND RESIDENT AWARE. CONT TO MONITOR.
--- NOTE | 2016-06-13 14:06 | RADIOLOGY REPORT ---
EXAMINATION: XR PORTABLE CHEST CLINICAL INFORMATION: Persistent hypoxia. Presumptive diagnosis of pneumonia. COMPARISON: CT scan of the chest dated 06/09/2016. Several prior chest x-rays, most recent of which is dated 06/09/2016. TECHNIQUE: Portable AP semierect view of the chest was obtained. FINDINGS: The cardiomediastinal silhouette is borderline enlarged, likely in part accentuated by AP portable technique and patient rotation and low lung volumes. Enlarged central pulmonary vessels, central vascular congestion and diffuse perihilar reticular opacities are seen, consistent with mild pulmonary edema. Some linear subsegmental atelectasis is seen in the right upper lobe, adjacent to the right minor fissure. Small bilateral pleural effusions and associated bibasilar subsegmental atelectasis are suspected. No pneumothorax is present. Bony structures are grossly unremarkable. IMPRESSION: 1. Findings are consistent with mild pulmonary edema with associated small bilateral pleural effusions 2. Bibasilar subsegmental atelectasis.
[2016-06-13 14:47] VITALS: BP 120/73
--- NOTE | 2016-06-13 14:59 | Discharge Summary ---
See Addendum Visit Information Visit Dates Admission Date: 06/09/16 Discharge Date: 06/16/16 Hospital Course Course Attending Physician: RODERICK GARCIA MD Primary Care Physician: MARA HANSEN MD Consulting Request: Consulting Specialty: Podiatry Hospital Course: Mrs. Mendenhall is a 70-year-old lady with a PMH of COPD, HONG, CHF, CAD, prior HFpEF, previous PE S/P IVC filter placement, PAD, interstitial cystitis, chronic pain with implanted neurotransmitter and pain pump (nonfunctioning at this time),, chronic right medial malleolar ulcer who presented to [facility] from [facility] with complaints of acute onset shortness of breath and altered mental status. On admission are worse was unobtainable secondary to patient's mentation. VS on admission: BP 110/62, HR 117, RR 24, SPO2 100% on aerosol mask 6 L, T101.0 Physical exam on admission: Patient was in moderate distress. Multiple venous wounds on lower extremities, chronic lower extremity skin changes. Mucous membranes pink and moist. RRR, normal S1/S2 with distant heart sounds. Lungs: Bibasilar crackles limited air movement. Abdomen: Soft, nontender. Neuro: Disoriented and unable to assess complete neuro exam however no focal neurologic deficits Pertinent labs: WBC 19.1, H&H 12.3/30.7, sodium 138, potassium 4.4, BUN/CR 12/ 0.7 AB.4/30/84 on 6L Chest x-ray: Limited study with markedly low lung volumes and probable bibasilar atelectasis. There is central vascular congestion and I cannot exclude mild interstitial edema. Abdominal ultrasound: Status post cholecystectomy. No significant dilatation of the common bile duct. Inadequate visualization of the common bile duct to evaluate for calculus. Diffuse fatty infiltration of the liver. Right ankle x-ray: Indistinctness of the cortex over the medial malleolus and possible periosteal reaction both increase suspicion for possible osteomyelitis in the region of the patient's deep venous ulcer. Further assessment with 3 phase bone scan or contrast-enhanced MRI could provide a higher level specificity. Chest CTA: No evidence of acute or chronic pulmonary emboli. Arterial Duplex scan lower extremities: Patent deep arterial systems of the bilateral lower extremities. Velocities are primarily triphasic. Subtle biphasic waveforms in the bilateral anterior tibial arteries suggest mild peripheral vascular disease. Decreased velocity within the midportion of the right superficial femoral artery is nonspecific but may be related to technical factors due to portable examination. If clinically indicated, further evaluation with a CTA lower extremity runoff may be obtained. She was admitted to management of problems: 1. Sepsis 2. Osteomyelitis of right ankle 3. Peripheral artery disease 4. Metabolic encephalopathy 5. Elevated troponins Hospital course: 1. Sepsis * Initially on admission the patient received ceftriaxone, azithromycin and vancomycin. Blood cultures did return 2 positive for gram-positive cocci in pairs and chains * In the setting of x-ray findings of the right leg showing all cellulitis and probable underlying osteomyelitis, this was most likely etiology of her sepsis * Who consulted with podiatry (Dr. Rojas). We transitioned her to Unasyn 3 g IV Q6 with planned follow-up debridement of the right medial malleolus with Dr. Rojas in wound center on Saturday06/18/16. * Patient received 1 dose of vancomycin 1.5 g, azithromycin and ceftriaxone * Unasyn 3 g IV Q6 Day #8, was discontinued prior to discharge * Bone biopsy culture positive for MRSA ###################### * Vancomycin 1 g IV every 12 hours to plan on 4 weeks of treatment (until July 14) * She will need a weekly CBC, ESR, BUN/creatinine and Vancomycin trough level while on Vancomycin 2. Osteomyelitis of right ankle * The patient underwent an open incision and drainage deep to the D fashion with exposure of the flexor tendon and tendon sheath multiple sites right ankle with bone biopsy right medial malleolus on 06/12/2016 * Diagnosis: Open necrotic wound of the right ankle, osteomyelitis of the right ankle in the setting of peripheral vascular disease. Post procedure recommendations on weightbearing: As tolerated * Patient should follow up with Dr. Rojas in wound center on Saturday06/18/16. 3. Peripheral artery disease * The patient endorsed 2 months duration of bilateral lower extremity lesions and is followed on an outpatient basis. She was tentatively scheduled for radiofrequency venous ablation with Dr. Merritt Shah * We consulted with our vascular specialist Dr. Marley for recommendations moving her. At this time she was found not to have arterial perfusion deficits in the setting of arterial ultrasound findings as indicated above and palpable pedal pulses * Post discharge recommendations: Patient to follow-up with Dr. Merritt Shah as well as the wound center for placement of compression wraps 4. Chronic ulcer of lower extremity * Recommendations from solar energy sales specialist (Dr. Amaya): aggressive wound cleansing, leg elevation and moist wound care with Adaptic or Xeroform. Once slough has resolved she can be transitioned Aquacel Ag, an Saeed wrap can be applied to her left leg. * Xeroform leg elevation and multilayer compression dressing * Post discharge follow-up in the wound center 5. Metabolic encephalopathy * This appeared to resolve over the hospital course and was likely attribute it to sepsis 6. Elevated troponins * Initially on admission no evidence of ST-T changes on EKG, however Serial troponins on admission: 0.05/0.1/0.09 * After consulting with cardiology, elevation in troponins. Likely secondary to demand ischemia in the setting of sepsis. * Echocardiogram (06/10/2016): Mild left ventricular enlargement. Low normal left ventricular systolic function. Left ventricular ejection fraction is estimated at 50-55%. Mild left atrial dilatation. Mild mitral regurgitation. Mild to moderate tricuspid regurgitation. Trace pulmonic regurgitation. RVSP 42 mmHg * Previously on furosemide 40 mg PO spironolactone daily currently on hold. We' ll continue furosemide and spironolactone upon discharge to prevent fluid overload################ 7. Hypoxic respiratory failure * In conjunction with antibiotic therapy the patient was managed on nebulized treatments, incentive spirometry. The patient has established care with our poultry killer Dr. Dudley however she continued to decline maintenance inhalers and CPAP therapy * Repeat CXR on 06/13/2016 showed findings consistent with mild palmar edema and associated bilateral pleural effusions. Right basilar subsegmental atelectasis for which managed with incentive spirometry * Nocturnal oximetry (06/13/2016): patient had total of 1.5 hour desaturation episodes, couple of times patient went down to 85% saturation for greater than 5 minutes and was placed on 1 L oxygen * Recommendation for oxygen 2 L nocturnal and as needed 8. Anxiety, major depressive disorder * Continued with bupropion, imipramine and venlafaxine 9. Chronic pain * Lyrica 75 mg PO BID, Lyrica 300 mg QHS * Continued home dose of Dilaudid 4 mg daily, MS Contin 30 mg BID Allergies: Coded Allergies: adhesive tape (UNKNOWN 06/09/16) Disposition Summary Disposition Principal Diagnosis: Sepsis in the setting of osteomyelitis of the right ankle Additional Diagnosis: Peripheral artery disease Chronic ulcer of lower extremity Metabolic encephalopathy Elevated troponins Discharge Disposition: SNF Discharge Instructions General Discharge Information Code Status: Do Not Resucitate/Intubat Patient's Diet: Heart healthy diet Patient's Activity: Weightbearing as tolerated Follow-Up Instructions/Appts: Please follow-up with her PCP within 1-2 weeks after discharge. Please follow-up with your vascular surgeon Dr. Merritt Shah within 1-2 weeks after discharge Please follow-up in the wound center 1-2 weeks after discharge * Aggressive wound cleansing, leg elevation and moist wound care with Adaptic or Xeroform. Once slough has resolved she can be transitioned Aquacel Ag. * Xeroform leg elevation and multilayer compression dressing Medications at Discharge Discharge Medications: Stop taking the following medications: Lorazepam (Ativan) 0.5 MG TAB ORAL AT BEDTIME Continue taking these medications: Aspirin (Children's Aspirin) 81 MG TAB.CHEW 1 Tablet ORAL DAILY Comments: Last Taken:01/05/14 Time:08 BUPROPION HCL (Bupropion XL) 300 MG TAB.ER.24H 1 Tablet ORAL DAILY Comments: Last Taken:01/05/14 Time:822 CETIRIZINE HCL (Cetirizine HCl) 10 MG TABLET 1 Tablet ORAL DAILY Comments: Last Taken:NOT GIVEN INPATIENT, GIVEN CLARITIN Time: Dexlansoprazole (Dexilant) 60 MG BP 1 Capsule ORAL TWICE DAILY Comments: NOT GIVEN INPATIENT Docusate Sodium (Colace) 100 MG CAPSULE 1 Tablet ORAL DAILY Comments: Last Taken:01/05/14 Time:08 Folic Acid (Folic Acid) 0.4 MG TAB 2 Tablet ORAL DAILY Comments: Last Taken:01/05/14 Time:823 Hydroxychloroquine Sulfate (Hydroxychloroquine Sulfate) 200 MG TABLET 1 Tablet ORAL TWICE DAILY Comments: Last Taken:01/05/14 Time:823 IMIPRAMINE HCL (Imipramine HCl) 25 MG TABLET 1 Tablet ORAL DAILY Comments: Last Taken:01/05/14 Time:823 Ipratropium Melvin (Atrovent HFA 12.9 GMS) 17 MCG/ACTUATION HFA.AER.AD 0.06 Percent Inhale through mouth TWICE DAILY Comments: NOT GIVEN INPATIENT Levothyroxine Sodium (Levothyroxine Sodium) 50 MCG TABLET 1 Tablet ORAL DAILY BEFORE BREAKFAST Comments: Last Taken:01/05/14 Time:0549 Montelukast Sodium (Singulair) 10 MG TABLET 1 Tablet ORAL DAILY Comments: Last Taken:01/05/14 Time:08 POTASSIUM CHLORIDE (K-Dur) 20 MEQ TAB.ER.PRT 1 Tablet ORAL TWICE DAILY Comments: Last Taken:NOT GIVEN INPATIENT Time: Spironolactone (Aldactone) 25 MG TABLET 1 Tablet ORAL AT BED TIME Tizanidine HCl (Tizanidine HCl) 4 MG TABLET 1 Tablet ORAL TWICE DAILY Instructions: MORNING AND NOON Travoprost (Travatan Z Oph Donna 0.004% 2.5ML) 0.004 % DROPS 1 Drop In the eye Every night Comments: NOT GIVEN INPATIENT Imipramine Pamoate (Imipramine Pm) 75 MG CAP 1 Capsule ORAL AT BEDTIME Comments: Last Taken:01/04/14 Time:2138 Mirabegron (Myrbetriq) [address] Tablet ORAL DAILY MULTIVITAMINS,THERAPEUTIC (Thera) 1 TAB TAB 1 Tablet ORAL DAILY TRAZODONE HCL (Trazodone HCl) 150 MG TAB 1 Tablet ORAL Every night Comments: Last Taken:12/2913 Time:2136 Furosemide (Furosemide) 40 MG TAB 1 Tablet ORAL DAILY Comments: Last Taken:01/05/14 Time:1233 Linaclotide (Linzess) 290 MCG CAP 1 Capsule ORAL DAILY Pregabalin (Lyrica) 300 MG CAPSULE 1 Capsule ORAL AT BEDTIME Pregabalin (Lyrica) 75 MG CAPSULE 1 Capsule ORAL TWICE DAILY Instructions: 6 AM AND 5 PM Morphine Sulfate (Morphine Sulfate ER) 30 MG TABLET.ER 1 Tablet ORAL EVERY 12 HOURS Sennosides/Docusate Sodium (Senokot-S Tablet) 8.6 MG-50 MG TABLET 1 Tablet ORAL DAILY Instructions: AT 9 AM Brinzolamide/Brimonidine Tart (Simbrinza 1%-0.2% Eye Drops) 1 %-0.2 % DROPS.SUSP 1 DROP On the skin TWICE DAILY Comments: NOT GIVEN Tizanidine HCl (Tizanidine HCl) 4 MG TABLET 2 Tablet ORAL Every night Venlafaxine HCl (Effexor XR) 150 MG CAP.ER.24H 2 Capsule ORAL DAILY Hydromorphone HCl (Dilaudid) 4 MG TABLET 1 Tablet ORAL Q4PRN Days = 30 Comments: Last Taken:06/16/16 Time: 1330PM Start taking the following new medications: Nystatin (Nystatin) 100,000 UNIT/GRAM CREAM..G. 1 Application On the skin TWICE DAILY Qty = 30 No Refills Instructions: PLEASE APPLY TO AFFECTED AREAS Comments: Last Taken: 06/16/16 Time: 0900AM Acetaminophen (Tylenol) 325 MG TABLET 650 Milligram ORAL EVERY 8 HOURS NEEDED as needed for PAIN SCALE 1-3 ( MILD) Qty = 30 No Refills Vancomycin HCl (Vancomycin HCl) 1 GRAM VIAL 1,000 Gram INTRAVEN EVERY 12 HOURS Days = 28 No Refills Instructions: continue antibiotic until 07/14/2016 Comments: Last Taken: 06/16/16 Time: 1345PM Copies To: JADE HOUSTON,MARA; NIDA HOUSTON,MERCEDES; MAK VAIL,ROCK; SURESH HOUSTON,Marlen JAMA; WOLFGANG HOUSTON,FELICITA Alexis; TREVOR HOUSTON,LAUREN; GEORGE HOUSTON,ZANE; MALLY MENDOZA MD Attending MD Review Statement Documenting Attending: RODERICK GARCIA MD Other Findings: Agree with plan of care as outlined.
--- NOTE | 2016-06-13 15:13 | PN- Infect Dx ---
Subjective Subjective: MAXIMUM TEMPERATURE 100.5. She complains of her usual pelvic pain. She has no right leg pain. Objective Last 24 Hrs of Vital Signs/I&O Vital Signs Date Time Temp Pulse Resp B/P Pulse O2 O2 Flow FiO2 Ox Delivery Rate 06/13 1447 98.6 82 18 120/73 92 Nasal 2.0L Cannula 06/13 0845 95 Nasal 1.0L Cannula 06/13 0800 91 Nasal 1.5L Cannula 06/13 0729 97.4 87 20 100/74 91 Nasal 1.5L Cannula 06/13 0000 Nasal 1.0L Cannula 06/12 2222 100.5 80 19 120/50 90 Nasal 1.0L Cannula 06/12 2000 95 Nasal 1.0L Cannula 06/12 1903 99.1 84 20 132/80 91 Nasal 4.0L Cannula 06/12 1600 92 Nasal 1.0L Cannula 06/12 1530 98.3 82 18 123/55 92 Nasal 1.0L Cannula Intake & Output 06/13 1600 06/13 0800 06/13 0000 Intake Total 590 120 Output Total 350 400 Balance -350 590 -280 Intake, IV 240 Intake, Oral 350 120 Number 0 0 Bowel Movements Output, Urine 350 400 Patient 255 lb Weight Physical Exam Other Physical Findings: She appears comfortable in no acute distress Extremities right foot dressing intact Results Last 24 Hours of Lab Results: Laboratory Tests 06/13 714 Chemistry Sodium (137 - 145 mmol/L) 138 Potassium (3.5 - 5.1 mmol/L) 3.5 Chloride (98 - 107 mmol/L) 106 Carbon Dioxide (22 - 30 mmol/L) 26 Anion Gap (5 - 16) 7 BUN (7 - 17 mg/dL) 12 Creatinine (0.5 - 1.0 mg/dL) 0.7 Estimated GFR (>60 ml/min) > 60 BUN/Creatinine Ratio (7 - 25 %) 17.1 Hematology CBC w Diff NO MAN DIFF REQ WBC (4.8 - 10.8 /CUMM) 8.6 RBC (4.20 - 5.40 /CUMM) 4.09 L Hgb (12.0 - 16.0 G/DL) 10.3 L Hct (37 - 47 %) 32.2 L MCV (81.0 - 99.0 FL) 78.7 L MCH (27.0 - 31.0 PG) 25.1 L RDW (11.5 - 14.5 %) 16.0 H Plt Count (130 - 400 /CUMM) 180 MPV (7.4 - 10.4 FL) 9.2 Gran % (42.2 - 75.2 %) 68.6 Lymphocytes % (20.5 - 51.1 %) 19.2 L Monocytes % (1.7 - 9.3 %) 9.5 H Eosinophils % (0 - 5 %) 2.2 Basophils % (0.0 - 2.0 %) 0.5 Absolute Granulocytes (1.4 - 6.5 /CUMM) 5.9 Absolute Lymphocytes (1.2 - 3.4 /CUMM) 1.7 Absolute Monocytes (0.10 - 0.60 /CUMM) 0.8 H Absolute Eosinophils (0.0 - 0.7 /CUMM) 0.2 Absolute Basophils (0.0 - 0.2 /CUMM) 0 PUBS MCHC (33.0 - 37.0 G/DL) 31.9 L Last 24 Hours of Gene Results: OR culture labeled right ankle bone June 12 negative, with gram stain revealing rare white blood cells and no organisms Recent Imaging Studies: Chest x-ray June 13 reveals hepatomegaly with central vascular congestion and diffuse perihilar reticular opacities with atelectasis in the right upper lobe Assessment/Plan Impression: Stable status post debridement of the right medial malleolus and bone biopsy yesterday for presumed osteomyelitis, with culture so far negative. She did have a low-grade fever last night, likely related to the recent surgery, and white blood cell count is now normal on Unasyn now Day 5 of treatment for Group B strep sepsis presumably secondary to an infected/necrotic right medial malleolar ulcer. Suggestion: 1. Follow-up bone biopsy and culture 2. Consider need for PICC based on above 3. Continue Unasyn pending above
[2016-06-13 21:59] VITALS: BP 118/66
--- NOTE | 2016-06-13 23:40 | NUR ---
1600 CHARTING TIME ENTERED 2200 IN ERROR.
--- NOTE | 2016-06-14 07:12 | PN- Housestaff ---
VICKI HOUSTON,[facility] 06/14/16 0712: Subjective Follow-up For: Cellulitis right lower extremety Sepsis secondary to STrep bacteremia b/l lower extremeties wounds Depression CHF Subjective: Patient was seen and examined this morning, vital signs are stable, afebrile, no overnight events reported by the nurse or the patient. The patient had nocturnal oximetry on room air last night. Patient reported improvement of shortness of breath, she is on 1 L oxygen with saturation 92%. She reported cough with minimal sputum, denied chest pain, palpitation. She continued to have lower abdominal pain from interstitial cystitis, uses bedpan with no dysuria. She also reported Left hip pain 5 /10, in addition to bilateral lower legs pain. She denied weakness, numbness. Review of Systems Constitutional: Reports: see HPI. Objective Last 24 Hrs of Vital Signs/I&O Vital Signs Date Time Temp Pulse Resp B/P Pulse O2 O2 Flow FiO2 Ox Delivery Rate 06/14 0950 92 Nasal 1.0L Cannula 06/14 0800 93 Nasal 1.0L Cannula 06/14 0717 98.0 81 20 138/90 92 Nasal 1.0L Cannula 06/14 0115 92 Nasal 1.0L Cannula 06/14 0000 Nasal 1.0L Cannula 06/13 2200 92 Nasal 1.0L Cannula 06/13 2159 99.1 76 18 118/66 92 06/13 1940 94 Nasal 1.0L Cannula 06/13 1447 98.6 82 18 120/73 92 Nasal 2.0L Cannula Intake & Output 06/14 1600 06/14 0800 06/14 0000 Intake Total 100 700 Output Total 100 Balance 100 600 Intake, IV 100 100 Intake, Oral 600 Number 1 Bowel Movements Output, Urine 100 Patient 117.169 kg Weight Physical Exam General Appearance: Alert, Cooperative, No Acute Distress Skin: No Rashes HEENT: Atraumatic, PERRLA, EOMI, Mucous Membr. moist/pink Neck: Supple Cardiovascular: Regular Rate, Normal S1, Normal S2, No Murmurs Lungs: Clear to Auscultation, Normal Air Movement Abdomen: Normal Bowel Sounds, Soft, lower abdominal tenderness Neurological: Normal Speech, Strength at 5/5 X4 Ext, Normal Tone, Sensation Intact, Cranial Nerves 3-12 NL, Reflexes 2+ Extremities: No Clubbing, No Cyanosis, No Edema, Normal Pulses Assessment/Plan Assessment: Patient is 70 year old female with PMH of CHF, rheumatoid arthritis, CAD, hypothyroidism, chronic pain syndrome, mood disorder, anxiety disorder, dysuria, major depressive disorder, COPD, pancreatitis, was brought from [facility] on 06/08/16 with chief complain of altered mental status and shivering. In ER, patient spiked a fever of 101 and was tachypenic, her labs were significant for leukocytosis of 19 and she had elevated lactic acid of 2.8. In ER, she was given Ceftriaxone, Azithromycin and Vancomycin in addition to loading dose of solumedrol and 40 IV lasix. Patient was initially admitted to ICU and then transferred to telemetry and finally landed in general medical floor yesterday. Imaging as inpatient CXR: Limited study with markedly low lung volumes and probable bibasilar atelectasis. There is central vascular congestion and I cannot exclude mild interstitial edema. X-ray of the left tibia and fibula negative for osteomyelitis. X-ray of the right ankle reveals indistinctness of the cortex of the medial malleolus and possible periosteal reaction, suspicious for osteomyelitis CTA of the chest no evidence of acute or chronic emboli; no focal consolidation; bibasilar atelectasis, right greater than left Problem list and plan #Right ankle cellulitis with possible underlying osteomyeltis and left tibial ulcers -Patient was initially started on Vancomycin, BC X 2 from 06/09/16 were significant for Beta Strep group B, Vanco was discontinued with and patient switched to Unasyn -Infectious disease consultation was obtained, thanks for recommendation -Continue Unasyn to treat group B strep sepsis presimbly secondary to infection/ necrotic right medial malleolar ulcer -Unasyn 3000 mg every 6 IV DAY#6 -Patient had debridement of right medial malleolus ulcer with bone biopsy yesterday, POD#2 -Follow up wound culture for antibiotic susceptibility and sensitivity -Continue to follow podiatry recommendation, patient is weightbearing as tolerated for physical therapy -Wound care consultation was obtained, recommendation for daily Xeroform leg elevation and a multilayer compression dressing. An Saeed wrap can be applied to her left leg. -Patient should follow up in wound center after discharge #Elevated troponins likely demand Ischemia -Patient complained of chest pressure on admission, troponins were elevated to 0.14, trended down to 0.11, no EKG changes appreciated -Cardiology consult service (Dr. Frank was on board) -Continue aspirin 81 mg daily #History of Diastolic Heart Failure -Continue to hold Lasix and spirinolactone, were held on admission -Cardiology recommendation where obtained, thanks for input -Echocardiogram was done on 06/10/16 Mild left ventricular enlargement. Low normal left ventricular systolic function. Left ventricular ejection fraction is estimated at 50-55%. Mild left atrial dilatation. Mild mitral regurgitation. Mild to moderate tricuspid regurgitation. Trace pulmonic regurgitation. 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 -Trended down 261<346 -AST and ALT within normal, where initially mildly elevated 57 and 78 respectively #History of Anxiety and Major depressive disorder -Continue home psych medication bupropion, imipramine (2 different doses 25 mg in the morning and 75 mg at bedtime), Venlafaxine, trazodone #History of Chornic pain -Patient has a history of neurostimulator in the back but nonfunctional -Continue Lyrica 75 mg BID and 300 at bed time -Dilaudid continue home dose of 4 mg by mouth every 4 when necessary -Morphine extendid release 30 mg BID #History of neurogenic bladder and interstitial cystitis -Continue Mirabegron 25 mg daily #History of rheumatoid arthritis -Continue Hydroxychloroquin 200 mg tab for RA #History of hypothyroidism -Continue levothyroxine 50 mcg for hypothyroidism #History of COPD and sleep apnea -Patient is not on home oxygen and refused CPAP in the past -Continue oxygen supplementation and taper oxygen to goal of SPO2 of more than 92% -Continue TRC -Continue Robitussin -Pulse oximetry without oxygen on rest was obtained today, oxygen saturation of 88% on room air resting -Nocturnal pulse oximetry on room air was obtained last night, patient had total of 1.5 hour desaturation episodes, couple of times patient went down to 85% saturation for greater than 5 minutes and was placed on 1 L oxygen -Chest x-ray on 06/13/16 revealed 1. Findings are consistent with mild pulmonary edema with associated small bilateral pleural effusions 2. Bibasilar subsegmental atelectasis -Incentive Spirometry was ordered -DVT prophylaxis subcutaneous heparin -Code DNR/DNI -Diet heart healthy -PT evaluation recommendation for short-term rehabilitation -Consultation cardiology, pulmonology, ID, vascular surgery, podiatry, wound care, PT Problem List: 1. Bilateral leg ulcer 2. Sepsis 3. CHF (congestive heart failure) Pain Ratin Pain Location: Left hip pain Pain Goal: Pain 4 or less Pain Plan: -Continue Lyrica 75 mg BID and 300 at bed time -Dilaudid continue home dose of 4 mg by mouth every 4 when necessary -Morphine extendid release 30 mg BID Tomorrow's Labs & Rationales: None Consulting Request: 1 Consulting Specialty: Cardiology Consulting Request: 2 Consulting Specialty: Podiatry Consulting Request: 3 Consulting Specialty: Infectious Disease Consulting Request: 4 Consulting Specialty: Pulmonary Disease Consulting Request: 5 Consulting Specialty: Critical Care Consulting Request: 6 Consulting Specialty: Thoracic/Vascular Surgery RODERICK GARCIA MD 06/14/16 1354: Attending MD Review Statement Attending Statement Attending MD Statement: examined this patient, discuss w/resident/PA[employer], agreed w/resident/PA[employer], reviewed EMR data (avail), discussed with nursing, amended to note Attending Assessment/Plan: The patient was seen and discussed with house staff. Agree with the plan of care as outlined. Await bone culture and decision regarding need for PICC line.
[2016-06-14 07:17] VITALS: BP 138/90
[2016-06-14 08:11] LABS: ABSOLUTE BASOPHIL COUNT 0 /CUMM (0.0-0.2); ABSOLUTE EOSINOPHIL COUNT 0.4 /CUMM (0.0-0.7); ABSOLUTE GRANULOCYTE CT 5.7 /CUMM (1.4-6.5); ABSOLUTE LYMPH COUNT 1.4 /CUMM (1.2-3.4); ABSOLUTE MONOCYTE COUNT 0.8 /CUMM (0.10-0.60); BASOPHIL % 0.3 % (0.0-2.0); EOSINOPHIL % 4.9 % (0-5); GRANULOCYTE % 68.5 % (42.2-75.2); HEMATOCRIT 31.8 % (37-47); MEAN CORPUSCULAR HGB 25.3 PG (27.0-31.0); MEAN CORPUSCULAR HGB CONC 32.4 G/DL (33.0-37.0); MEAN CORPUSCULAR VOLUME 78.1 FL (81.0-99.0); MEAN PLATELET VOLUME 9.2 FL (7.4-10.4); PLATELET COUNT 173 /CUMM (130-400); RBC DISTRIBUTION WIDTH 16.1 % (11.5-14.5); RED BLOOD CELL CT 4.07 /CUMM (4.20-5.40); WHITE BLOOD CELL COUNT 8.3 /CUMM (4.8-10.8)
--- NOTE | 2016-06-14 08:28 | PN- Wound Care ---
Subjective Subjective: She feels well her edema is improved with leg elevation. Cultures and biopsy are pending. Awaiting initial dressing change post surgery by Dr. Rojas Objective Vital Signs and I&Os Vital Signs Result Date Time Pulse Ox 92 06/14 716 B/P 138/90 06/14 716 O2 Delivery Nasal Cannula 06/14 716 O2 Flow Rate 1.0L 06/14 716 Temp 98.0 06/14 716 Pulse 81 06/14 716 Resp 20 06/14 716 Intake & Output 06/14 0000 06/13 1600 06/13 0800 Intake Total 700 590 Output Total 100 350 Balance 600 -350 590 Intake, IV 100 240 Intake, Oral 600 350 Number 0 Bowel Movements Output, Urine 100 350 Patient 255 lb Weight Left lower extremity edema is diminished left lower extremity venous stasis ulcers have clean base with minimal drainage after elevation is no periwound erythema undermining or sinus tracking. Impression/Plan Impression/Plan Impression/Plan: 70-year-old woman without evidence peripheral vascular disease has had chronic venous stasis ulcers present on admission status post biopsy for possible osteomyelitis in view of strep sepsis and abnormal radiograph. Left lower extremity ulcers appear clean and appears to be adequate distal circulation. Recommend daily Xeroform leg elevation and a multilayer compression dressing will be applied. She can be followed in the wound center after discharge. Continue daily cleansing Xeroform effective leg elevation. An Saeed wrap can be applied to her left leg.
--- NOTE | 2016-06-14 11:42 | PN- Pulmonary ---
Subjective HPI/Critical Care Issues: pt seen and examined doing well nocturnal oximetry revealed 85% for over 5 minutes qualifying for nocturnal o2 Objective Current Medications: Current Medications Sig/Chula Start time Last Medication Dose Route Stop Time Status Admin Acetaminophen 650 MG Q8P PRN 06/09 0545 AC 06/13 PO 0327 Albuterol Sulfate 3 ML TID 06/12 1600 AC 06/14 INH 0946 Ampicillin Sodium/ 3,000 MG Q6 06/09 1431 AC 06/14 Sulbactam Sodium IV 0639 Sodium Chloride 100 ML Aspirin 81 MG DAILY 06/09 1000 AC 06/14 PO 0823 Bupropion HCl 300 MG DAILY 06/09 1255 AC 06/14 PO 0824 Calcium Carbonate 500 MG DAILY 06/11 1000 AC 06/14 PO 0824 Docusate Sodium 100 MG DAILY NEEDED PRN 06/13 1600 AC PO Folic Acid 1 MG DAILY 06/09 1000 AC 06/14 PO 0825 Guaifenesin/ 10 ML Q6P PRN 06/10 1445 AC 06/13 Dextromethorphan PO 1949 Heparin Sodium 5,000 UNIT Q8 06/09 0600 AC 06/14 (Porcine) SC 0639 Hydromorphone HCl 4 MG Q4P PRN 06/12 0745 AC 06/14 PO 0708 Hydroxychloroquine 200 MG BID 06/09 1000 AC 06/14 Sulfate PO 0823 Imipramine HCl 25 MG QAM 06/10 1000 AC 06/14 PO 0824 Imipramine HCl 75 MG AT BEDTIME 06/09 2200 AC 06/13 PO 1949 Ipratropium Lynn 2.5 ML TID 06/12 1600 AC 06/14 INH 0947 Levothyroxine Sodium 0.05 MG DAILY AC 06/09 0700 AC 06/14 PO 0639 Mirabegron 25 MG DAILY 06/09 1730 AC 06/14 PO 0825 Morphine Sulfate 30 MG BID 06/12 1000 AC 06/14 PO 0825 Multivitamins 1 TAB DAILY 06/10 1000 AC 06/14 PO 0823 Omeprazole 20 MG DAILY AC 06/09 0700 AC 06/14 PO 0638 Patient Medication 1 ED .STK-MED ONE 06/13 1346 DC Teaching ED 06/13 1347 Polyethylene Glycol 17 GM DAILY 06/13 1551 AC 06/14 PO 0825 Pregabalin 300 MG AT BEDTIME 06/09 2200 AC 06/13 PO 1948 Pregabalin 75 MG 0600,1700 06/09 1700 AC 06/14 PO 0638 Senna 187 MG AT BEDTIME 06/13 2199 AC 06/13 PO 1950 Trazodone HCl 150 MG AT BEDTIME 06/11 2199 AC 06/13 PO 194 Venlafaxine HCl 300 MG DAILY 06/10 1000 AC 06/14 PO 0824 Vital Signs & I&O Last 24 Hrs of Vitals and I&O: Vital Signs Date Time Temp Pulse Resp B/P Pulse O2 O2 Flow FiO2 Ox Delivery Rate 06/14 949 92 Nasal 1.0L Cannula 06/15 799 93 Nasal 1.0L Cannula 06/14 07 98.0 81 20 138/90 92 Nasal 1.0L Cannula 06/14 0115 92 Nasal 1.0L Cannula 06/14 0000 Nasal 1.0L Cannula 06/13 2199 92 Nasal 1.0L Cannula 06/13 2159 99.1 76 18 118/66 92 06/13 1940 94 Nasal 1.0L Cannula 06/13 1447 98.6 82 18 120/73 92 Nasal 2.0L Cannula Intake & Output 06/14 1600 06/14 0800 06/14 0000 Intake Total 100 700 Output Total 100 Balance 100 600 Intake, IV 100 100 Intake, Oral 600 Number 1 Bowel Movements Output, Urine 100 Patient 258 lb Weight Exam Other Physical Findings: gen awake and alert heent ncat cvs s1, s2, systolic murmur lungs diminished at bases ext dressing intact, chronic venous stasis Results Last 24 Hrs of Lab Results: Laboratory Tests 06/14/16 0800: Pulse Ox Probe Site LIF, ABG O2 Sat Calc/Taylor 90.0 L, O2 Concentration % 1 LPM, O2 Delivery Method NC 06/14/16 0614: Anion Gap 10, Estimated GFR > 60, BUN/Creatinine Ratio 13.3, CBC w Diff NO MAN DIFF REQ, RBC 4.07 L, MCV 78.1 L, MCH 25.3 L, RDW 16.1 H, MPV 9.2, Gran % 68.5, Lymphocytes % 17.2 L, Monocytes % 9.1, Eosinophils % 4.9, Basophils % 0.3 , Absolute Granulocytes 5.7, Absolute Lymphocytes 1.4, Absolute Monocytes 0.8 H , Absolute Eosinophils 0.4, Absolute Basophils 0, PUBS MCHC 32.4 L Impression/Plan Impression/Plan Impression/Plan: Impression 70 year old woman - group b strep - probable source right lower extremity - History of VTE - History of COPD - History of HONG Plan - Abx and soft tissue infection per ID, podiatry, wound care - o2 as needed and nocturnal - will require nocturnal o2 as outpt and as needed - TRC/Nebs - Hx of IVC filter - patient has in the past and continues to decline the following: - declines maintenance inhalers - declines CPAP therapy - VTE prophylaxis at all times
[2016-06-14 14:31] VITALS: BP 140/76
--- NOTE | 2016-06-14 15:30 | PN- Infect Dx ---
Subjective Subjective: Afebrile. She has mild discomfort in the right foot. Objective Last 24 Hrs of Vital Signs/I&O Vital Signs Date Time Temp Pulse Resp B/P Pulse O2 O2 Flow FiO2 Ox Delivery Rate 06/14 1431 99.0 84 20 140/76 95 Nasal 1.0L Cannula 06/14 0850 92 Nasal 1.0L Cannula 06/15 799 93 Nasal 1.0L Cannula 06/14 07 98.0 81 20 138/90 92 Nasal 1.0L Cannula 06/14 0115 92 Nasal 1.0L Cannula 06/14 0000 Nasal 1.0L Cannula 06/13 2200 92 Nasal 1.0L Cannula 06/13 2159 99.1 76 18 118/66 92 06/13 1940 94 Nasal 1.0L Cannula Intake & Output 06/14 1600 06/14 0806/14 0000 Intake Total 1000 100 700 Output Total 600 100 Balance 400 100 600 Intake, IV 100 100 100 Intake, Oral 900 600 Number 1 Bowel Movements Output, Urine 600 100 Patient 258 lb Weight Physical Exam Other Physical Findings: She appears comfortable in no acute distress Lungs decreased breath sounds at both bases Heart regular rhythm with no murmur Extremities right leg dressing intact Results Last 24 Hours of Lab Results: Laboratory Tests 06/14 0614 Blood Gas Pulse Ox Probe Site LIF ABG O2 Sat Calc/Taylor (92.0 - 96.0 %) 90.0 L O2 Concentration % 1 LPM O2 Delivery Method NC Chemistry Sodium (137 - 145 mmol/L) 139 Potassium (3.5 - 5.1 mmol/L) 3.6 Chloride (98 - 107 mmol/L) 104 Carbon Dioxide (22 - 30 mmol/L) 25 Anion Gap (5 - 16) 10 BUN (7 - 17 mg/dL) 8 Creatinine (0.5 - 1.0 mg/dL) 0.6 Estimated GFR (>60 ml/min) > 60 BUN/Creatinine Ratio (7 - 25 %) 13.3 Hematology CBC w Diff NO MAN DIFF REQ WBC (4.8 - 10.8 /CUMM) 8.3 RBC (4.20 - 5.40 /CUMM) 4.07 L Hgb (12.0 - 16.0 G/DL) 10.3 L Hct (37 - 47 %) 31.8 L MCV (81.0 - 99.0 FL) 78.1 L MCH (27.0 - 31.0 PG) 25.3 L RDW (11.5 - 14.5 %) 16.1 H Plt Count (130 - 400 /CUMM) 173 MPV (7.4 - 10.4 FL) 9.2 Gran % (42.2 - 75.2 %) 68.5 Lymphocytes % (20.5 - 51.1 %) 17.2 L Monocytes % (1.7 - 9.3 %) 9.1 Eosinophils % (0 - 5 %) 4.9 Basophils % (0.0 - 2.0 %) 0.3 Absolute Granulocytes (1.4 - 6.5 /CUMM) 5.7 Absolute Lymphocytes (1.2 - 3.4 /CUMM) 1.4 Absolute Monocytes (0.10 - 0.60 /CUMM) 0.8 H Absolute Eosinophils (0.0 - 0.7 /CUMM) 0.4 Absolute Basophils (0.0 - 0.2 /CUMM) 0 PUBS MCHC (33.0 - 37.0 G/DL) 32.4 L Last 24 Hours of Gene Results: OR culture right ankle June 12 negative after 2 days Right ankle bone pathology negative for osteomyelitis Assessment/Plan Impression: Stable status post debridement of the right medial malleolus and bone biopsy 2 days ago for possible osteomyelitis, with culture so far negative and pathology negative for osteomyelitis. She remains afebrile with white blood cell count normal on Unasyn now Day 6 of treatment for Group B strep sepsis presumably secondary to an infected/necrotic right medial malleolar ulcer. Suggestion: 1. Follow-up final culture 2. Continue Unasyn pending above
[2016-06-14 22:49] VITALS: BP 100/50
[2016-06-15 06:42] VITALS: BP 128/70
--- NOTE | 2016-06-15 07:13 | PN- Housestaff ---
VICKI HOUSTON,[facility] 06/15/16 0713: Subjective Follow-up For: Cellulitis right lower extremety Sepsis secondary to STrep bacteremia b/l lower extremeties wounds Depression CHF Subjective: Patient was seen and examined this morning, vital signs are stable, no overnight events reported by the nurse or the patient. Patient continues to have chronic lower abdominal pain from interstitial cystitis, left hip pain, bilateral leg pain. Review of Systems Constitutional: Reports: see HPI. Objective Last 24 Hrs of Vital Signs/I&O Vital Signs Date Time Temp Pulse Resp B/P Pulse O2 O2 Flow FiO2 Ox Delivery Rate 06/15 1449 98.3 79 18 134/68 93 Nasal 1.0L Cannula 06/15 0858 93 Nasal 1.0L Cannula 06/15 0800 Nasal 2.0L Cannula 06/15 0642 98.3 73 18 128/70 94 Room Air 06/15 0000 Nasal 1.0L Cannula 06/14 2249 98.5 80 20 100/50 93 Nasal 1.0L Cannula 06/14 1900 99 Nasal 1.0L Cannula 06/14 1600 Nasal 1.0L Cannula Intake & Output 06/15 1600 06/15 0800 03 0000 Intake Total 700 215 900 Output Total 500 500 Balance 200 215 400 Intake, IV 100 105 100 Intake, Oral 600 110 800 Output, Urine 500 500 Patient 116.743 kg Weight Physical Exam General Appearance: Alert, Oriented X3, Cooperative, No Acute Distress Skin: No Rashes HEENT: Atraumatic, PERRLA, EOMI, Mucous Membr. moist/pink Neck: Supple, No JVD Cardiovascular: Regular Rate, Normal S1, Normal S2, No Murmurs Lungs: Clear to Auscultation, Normal Air Movement Abdomen: Normal Bowel Sounds, Soft, No Tenderness Neurological: Normal Speech, Strength at 5/5 X4 Ext, Normal Tone, Sensation Intact, Cranial Nerves 3-12 NL, Reflexes 2+ Extremities: No Clubbing, No Cyanosis, Normal Pulses, bilaterallower extremity trace edema Assessment/Plan Assessment: Patient is 70 year old female with PMH of CHF, rheumatoid arthritis, CAD, hypothyroidism, chronic pain syndrome, mood disorder, anxiety disorder, dysuria, major depressive disorder, COPD, pancreatitis, was brought from [facility] on 06/08/16 with chief complain of altered mental status and shivering. In ER, patient spiked a fever of 101 and was tachypenic, her labs were significant for leukocytosis of 19 and she had elevated lactic acid of 2.8. In ER, she was given Ceftriaxone, Azithromycin and Vancomycin in addition to loading dose of solumedrol and 40 IV lasix. Patient was initially admitted to ICU and then transferred to telemetry and finally landed in general medical floor yesterday. Imaging as inpatient CXR: Limited study with markedly low lung volumes and probable bibasilar atelectasis. There is central vascular congestion and I cannot exclude mild interstitial edema. X-ray of the left tibia and fibula negative for osteomyelitis. X-ray of the right ankle reveals indistinctness of the cortex of the medial malleolus and possible periosteal reaction, suspicious for osteomyelitis CTA of the chest no evidence of acute or chronic emboli; no focal consolidation; bibasilar atelectasis, right greater than left Problem list and plan #Right ankle cellulitis with possible underlying osteomyeltis and left tibial ulcers -Patient was initially started on Vancomycin, BC X 2 from 06/09/16 were significant for Beta Strep group B, Vanco was discontinued with and patient switched to Unasyn -Infectious disease consultation was obtained, thanks for recommendation -Continue Unasyn to treat group B strep sepsis presimbly secondary to infection/ necrotic right medial malleolar ulcer -Unasyn 3000 mg every 6 IV DAY#7 -Patient had debridement of right medial malleolus ulcer with bone biopsy, POD#3 -Right foot wound culture is positive for Staph aureus, but pathology report is negative for osteomyelitis -Will follow up culture for antibiotic sensitivity, patient has positive history of MRSA -We'll proceed with PICC line insertion -Continue to follow podiatry recommendation, patient is weightbearing as tolerated for physical therapy -Right leg wound dressing is good for [address] Rojas, patient will need dressing change on Saturday or Saturday -Wound care consultation was obtained for left leg venous stasis wound, recommendation for daily Xeroform leg elevation and a multilayer compression dressing. An Saeed wrap can be applied to her left leg. -Patient should follow up in wound center after discharge #Elevated troponins likely demand Ischemia -Patient complained of chest pressure on admission, troponins were elevated to 0.14, trended down to 0.11, no EKG changes appreciated -Cardiology consult service (Dr. Frank was on board) -Continue aspirin 81 mg daily #History of Diastolic Heart Failure -Continue to hold Lasix and spirinolactone, were held on admission, will continue upon discharge to avoid fluid overload -Cardiology recommendation where obtained, thanks for input -Echocardiogram was done on 06/10/16 Mild left ventricular enlargement. Low normal left ventricular systolic function. Left ventricular ejection fraction is estimated at 50-55%. Mild left atrial dilatation. Mild mitral regurgitation. Mild to moderate tricuspid regurgitation. Trace pulmonic regurgitation. 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 -Trended down 261<346 -AST and ALT within normal, where initially mildly elevated 57 and 78 respectively #History of Anxiety and Major depressive disorder -Continue home psych medication bupropion, imipramine (2 different doses 25 mg in the morning and 75 mg at bedtime), Venlafaxine, trazodone #History of Chornic pain -Patient has a history of neurostimulator in the back but nonfunctional -Continue Lyrica 75 mg BID and 300 at bed time -Dilaudid continue home dose of 4 mg by mouth every 4 when necessary -Morphine extendid release 30 mg BID #History of neurogenic bladder and interstitial cystitis -Continue Mirabegron 25 mg daily #History of rheumatoid arthritis -Continue Hydroxychloroquin 200 mg tab for RA #History of hypothyroidism -Continue levothyroxine 50 mcg for hypothyroidism #History of COPD and sleep apnea -Patient is not on home oxygen and refused CPAP in the past -Continue oxygen supplementation and taper oxygen to goal of SPO2 of more than 92% -Continue TRC -Continue Robitussin -Pulse oximetry without oxygen on rest was obtained today, oxygen saturation of 88% on room air resting -Nocturnal pulse oximetry on room air was obtained last night, patient had total of 1.5 hour desaturation episodes, couple of times patient went down to 85% saturation for greater than 5 minutes and was placed on 1 L oxygen -Chest x-ray on 06/13/16 revealed 1. Findings are consistent with mild pulmonary edema with associated small bilateral pleural effusions 2. Bibasilar subsegmental atelectasis -Incentive Spirometry was ordered -DVT prophylaxis subcutaneous heparin -Code DNR/DNI -Diet heart healthy -PT evaluation recommendation for short-term rehabilitation -Consultation cardiology, pulmonology, ID, vascular surgery, podiatry, wound care, PT Problem List: 1. Sepsis 2. Bilateral leg ulcer 3. CHF (congestive heart failure) Pain Ratin Pain Location: Left hip pain, bilateral leg pain Pain Goal: Pain 4 or less Pain Plan: -Continue Lyrica 75 mg BID and 300 at bed time -Dilaudid continue home dose of 4 mg by mouth every 4 when necessary -Morphine extendid release 30 mg BID Tomorrow's Labs & Rationales: None Consulting Request: Consulting Specialty: Thoracic/Vascular Surgery RODERICK GARCIA MD 06/15/16 1748: Attending MD Review Statement Attending Statement Attending MD Statement: examined this patient, discuss w/resident/PA/[employer], agreed w/resident/PA/[employer], reviewed EMR data (avail), discussed with nursing, discussed with case mgmt, amended to note Attending Assessment/Plan: The patient was seen and discussed with house staff and ID (Dr. Aden). PICC line inserted and to decide regarding antibiotics tomorrow (possible send back to [facility]). ID to decide upon antibiotics based on bone culture tomorrow.
[2016-06-15] MEDS ORDERED: TYLENOL325 M1 PO (08:27)
[2016-06-15] MEDS ORDERED: NYSTATIN15 G1 TOP (08:33)
--- NOTE | 2016-06-15 08:40 | Patient Discharge Instructions ---
Discharge Instructions General Discharge Information Special Instructions: -Please follow-up with your primary care physician within 1 week after discharge -Please follow up with Dr. Rojas in wound center on Saturday06/18/16 -Please follow up with Dr. Amaya in wound center for left leg wounds after discharge -Please follow up with tour driver Dr. Frank after discharge -Please follow-up with Dr. Dudley after discharge -Patient requires nocturnal and as needed oxygen 2 L -Please follow up with vascular surgeon Dr. Shah after discharge -She will need a weekly CBC, ESR, BUN/creatinine and Vancomycin trough level while on Vancomycin Acute Coronary Syndrome Inclusion Criteria At DC or during hospital stay patient has or had the following: ACS DIAGNOSIS No Discharge Core Measures Meds if any: Prescribed or Continued at Discharge Meds if any: NOT Prescribed or Continued at Discharge Congestive Heart Failure Inclusion Criteria At DC or during hospital stay patient has or had the following: CHF DIAGNOSIS No Discharge Core Measures Meds if any: Prescribed or Continued at Discharge Meds if any: NOT Prescribed or Continued at Discharge Cerebrovascular accident Inclusion Criteria At DC or during hospital stay patient has or had the following: CVA/TIA Diagnosis No Discharge Core Measures Meds if any: Prescribed or Continued at Discharge Meds if any: NOT Prescribed or Continued at Discharge Venous thromboembolism Inclusion Criteria VTE Diagnosis No VTE Type NONE VTE Confirmed by (Test) CT CHEST ANGIOGRAM Discharge Core Measures - Per Current guidelines, there needs to be overlap - treatment for the first 5 days of Warfarin therapy. - If discharged on Warfarin prior to 5 days of - overlap therapy, the patient will need to be - assessed for post discharge needs including - *Post discharge parental anticoagulation - *Warfarin and/or parental anticoagulation education - *Follow up date to check INR post discharge At least 5 days overlap therapy as Inpatient Yes Meds if any: Prescribed or Continued at Discharge Note: Overlap Therapy is Warfarin and Anticoagulant Meds if any: NOT Prescribed or Continued at Discharge
[2016-06-15 08:48] LABS: PT 15.1 SEC (9.4-12.5)
[2016-06-15 09:02] LABS: ABSOLUTE BASOPHIL COUNT 0 /CUMM (0.0-0.2); ABSOLUTE EOSINOPHIL COUNT 0.6 /CUMM (0.0-0.7); ABSOLUTE GRANULOCYTE CT 4.8 /CUMM (1.4-6.5); ABSOLUTE LYMPH COUNT 1.1 /CUMM (1.2-3.4); ABSOLUTE MONOCYTE COUNT 0.6 /CUMM (0.10-0.60); BASOPHIL % 0.4 % (0.0-2.0); EOSINOPHIL % 7.8 % (0-5); GRANULOCYTE % 67.1 % (42.2-75.2); MEAN CORPUSCULAR HGB 25.3 PG (27.0-31.0); MEAN CORPUSCULAR HGB CONC 32.6 G/DL (33.0-37.0); MEAN CORPUSCULAR VOLUME 77.5 FL (81.0-99.0); MEAN PLATELET VOLUME 9.4 FL (7.4-10.4); PLATELET COUNT 186 /CUMM (130-400); RBC DISTRIBUTION WIDTH 16.1 % (11.5-14.5); RED BLOOD CELL CT 3.88 /CUMM (4.20-5.40); WHITE BLOOD CELL COUNT 7.1 /CUMM (4.8-10.8)
--- NOTE | 2016-06-15 09:06 | PN- Pulmonary ---
Subjective HPI/Critical Care Issues: pt seen and examined 93% on 1LNC no new events no n/v/d/c no cp comfortable Objective Current Medications: Current Medications Sig/[place] Start time Last Medication Dose Route Stop Time Status Admin Acetaminophen 650 MG Q8P PRN 06/09 0545 AC 06/13 PO 0327 Albuterol Sulfate 3 ML TID 06/12 1600 AC 06/15 INH 0835 Ampicillin Sodium/ 3,000 MG Q6 06/09 1431 AC 06/15 Sulbactam Sodium IV 0650 Sodium Chloride 100 ML Aspirin 81 MG DAILY 06/09 1000 AC 06/14 PO 0823 Bupropion HCl 300 MG DAILY 06/09 1255 AC 06/14 PO 0824 Calcium Carbonate 500 MG DAILY 06/11 1000 AC 06/14 PO 0824 Docusate Sodium 100 MG DAILY NEEDED PRN 06/13 1600 AC PO Folic Acid 1 MG DAILY 06/09 1000 AC 06/14 PO 0825 Guaifenesin/ 10 ML Q6P PRN 06/10 1445 AC 06/14 Dextromethorphan PO 1739 Heparin Sodium 5,000 UNIT Q8 06/09 0600 AC 06/14 (Porcine) SC 2113 Hydromorphone HCl 4 MG Q4P PRN 06/12 0745 AC 06/15 PO 0103 Hydroxychloroquine 200 MG BID 06/09 1000 AC 06/14 Sulfate PO 2113 Imipramine HCl 25 MG QAM 06/10 1000 AC 06/14 PO 0824 Imipramine HCl 75 MG AT BEDTIME 06/09 2200 AC 06/14 PO 2112 Ipratropium [place] 2.5 ML TID 06/12 1600 AC 06/15 INH 0835 Levothyroxine Sodium 0.05 MG DAILY AC 06/09 0700 AC 06/15 PO 0654 Mirabegron 25 MG DAILY 06/09 1730 AC 06/14 PO 0825 Morphine Sulfate 30 MG BID 06/12 1000 AC 06/14 PO 2112 Multivitamins 1 TAB DAILY 06/10 1000 AC 06/14 PO 0823 Nystatin 1 FLACO BID 06/14 1149 AC 06/14 TOP 2113 Omeprazole 20 MG DAILY AC 06/09 0700 AC 06/15 PO 0654 Polyethylene Glycol 17 GM DAILY 06/13 1551 AC 06/14 PO 0825 Pregabalin 300 MG AT BEDTIME 06/09 2200 AC 06/14 PO 2112 Pregabalin 75 MG 0600,1700 03/04 1700 AC 06/15 PO 0654 Senna 187 MG AT BEDTIME 06/13 2200 AC 06/14 PO 211 Trazodone HCl 150 MG AT BEDTIME 06/11 2200 AC 06/14 PO 211 Venlafaxine HCl 300 MG DAILY 06/10 1000 AC 06/14 PO 0824 Vital Signs & I&O Last 24 Hrs of Vitals and I&O: Vital Signs Date Time Temp Pulse Resp B/P Pulse O2 O2 Flow FiO2 Ox Delivery Rate 06/15 0858 93 Nasal 1.0L Cannula 06/15 0642 98.3 73 18 128/70 94 Room Air 06/15 0000 Nasal 1.0L Cannula 06/14 2249 98.5 80 20 100/50 93 Nasal 1.0L Cannula 06/14 1900 99 Nasal 1.0L Cannula 06/14 1600 Nasal 1.0L Cannula 06/14 1431 99.0 84 20 140/76 95 Nasal 1.0L Cannula 06/14 0950 92 Nasal 1.0L Cannula Intake & Output 06/15 1600 06/15 0800 06/15 0000 Intake Total 215 900 Output Total 500 Balance 215 400 Intake, IV 105 100 Intake, Oral 110 800 Output, Urine 500 Patient 257 lb Weight Exam Other Physical Findings: gen awake and alert heent ncat cvs s1, s2, systolic murmur lungs diminished at bases abd soft bs+ ext dressing intact, chronic venous stasis Results Last 24 Hrs of Lab Results: Laboratory Tests 06/15/16 0805: PT 15.1 H, INR 1.44 H, CBC w Diff Pending, WBC Pending, RBC Pending, Hgb Pending, Hct Pending, MCV Pending, MCH Pending, RDW Pending, Plt Count Pending, MPV Pending, PUBS MCHC Pending, ESR Westergren Pending Impression/Plan Impression/Plan Impression/Plan: Impression 70 year old woman - group b strep - probable source right lower extremity - History of VTE - History of COPD - History of HONG Plan - Abx and soft tissue infection per ID, podiatry, wound care - nocturnal o2 as outpt and as needed - TRC/Nebs - Hx of IVC filter - patient has in the past and continues to decline the following: - declines maintenance inhalers - declines CPAP therapy - VTE prophylaxis at all times
--- NOTE | 2016-06-15 11:30 | PN- Infect Dx ---
Subjective Subjective: Afebrile without complaints Objective Last 24 Hrs of Vital Signs/I&O Vital Signs Date Time Temp Pulse Resp B/P Pulse O2 O2 Flow FiO2 Ox Delivery Rate 06/15 0858 93 Nasal 1.0L Cannula 06/15 0642 98.3 73 18 128/70 94 Room Air 06/15 0000 Nasal 1.0L Cannula 06/14 2249 98.5 80 20 100/50 93 Nasal 1.0L Cannula 06/14 1900 99 Nasal 1.0L Cannula 06/14 1600 Nasal 1.0L Cannula 06/14 1431 99.0 84 20 140/76 95 Nasal 1.0L Cannula Intake & Output 06/15 1600 06/15 0800 06/15 0000 Intake Total 215 900 Output Total 500 Balance 215 400 Intake, IV 105 100 Intake, Oral 110 800 Output, Urine 500 Patient 257 lb Weight Physical Exam Other Physical Findings: She appears comfortable in no acute distress Extremities right leg dressing intact Results Last 24 Hours of Lab Results: Laboratory Tests 06/15 804 Coagulation PT (9.4 - 12.5 SEC) 15.1 H INR (0.90 - 1.19) 1.44 H Hematology CBC w Diff NO MAN DIFF REQ WBC (4.8 - 10.8 /CUMM) 7.1 RBC (4.20 - 5.40 /CUMM) 3.88 L Hgb (12.0 - 16.0 G/DL) 9.8 L Hct (37 - 47 %) 30.0 L MCV (81.0 - 99.0 FL) 77.5 L MCH (27.0 - 31.0 PG) 25.3 L RDW (11.5 - 14.5 %) 16.1 H Plt Count (130 - 400 /CUMM) 186 MPV (7.4 - 10.4 FL) 9.4 Gran % (42.2 - 75.2 %) 67.1 Lymphocytes % (20.5 - 51.1 %) 15.8 L Monocytes % (1.7 - 9.3 %) 8.9 Eosinophils % (0 - 5 %) 7.8 H Basophils % (0.0 - 2.0 %) 0.4 Absolute Granulocytes (1.4 - 6.5 /CUMM) 4.8 Absolute Lymphocytes (1.2 - 3.4 /CUMM) 1.1 L Absolute Monocytes (0.10 - 0.60 /CUMM) 0.6 Absolute Eosinophils (0.0 - 0.7 /CUMM) 0.6 Absolute Basophils (0.0 - 0.2 /CUMM) 0 PUBS MCHC (33.0 - 37.0 G/DL) 32.6 L ESR Westergren (0 - 20 MM) 59 H Last 24 Hours of Gene Results: OR culture June 12 right ankle positive for Staph aureus Assessment/Plan Impression: Stable, with temperatures and white blood cell count remaining normal, status post debridement of the right medial malleolus and bone biopsy 3 days ago on Unasyn now Day 7 of treatment for Group B strep sepsis secondary to presumed osteomyelitis, with culture now positive for Staph aureus, but with pathology negative for osteomyelitis. With her history of MRSA, this may prove to be MRSA , which would require a change in her antibiotic to Vancomycin. Of interest her blood cultures grew Group B strep, which was not isolated from the bone culture, possibly as she was on antibiotics for several days prior to this culture. Suggestion: 1. Would pursue placement of a PICC 2. Follow-up final OR culture 3. Continue Unasyn pending above
--- NOTE | 2016-06-15 13:52 | RADIOLOGY REPORT ---
EXAMINATION: XR PORTABLE CHEST CLINICAL INFORMATION: Evaluate position of right-sided PICC. COMPARISON: 06/13/2016 TECHNIQUE: Portable AP view of the chest was obtained. FINDINGS: Limited evaluation secondary to patient positioning and technique. The patient is rotated towards the right. There is been interval placement of a right-sided PICC. The PICC is seen coursing down the superior vena cava; however, the location of the tip is not definitively visualized secondary to underpenetration of the lower chest. Similar borderline enlarged cardiac silhouette. Enlarged central pulmonary vessels with pulmonary vascular congestion and diffuse perihilar reticular opacities are unchanged. Bibasilar airspace disease is also unchanged. There are small bilateral pleural effusions. No pneumothorax. No acute osseous abnormality. IMPRESSION: Interval placement of a right-sided PICC. The PICC is seen coursing down the superior vena cava; however, the location of the tip is not definitively visualized.
[2016-06-15 14:49] VITALS: BP 134/68
[2016-06-15 23:11] VITALS: BP 121/55
[2016-06-16 07:31] VITALS: BP 123/66
--- NOTE | 2016-06-16 08:13 | PN- Housestaff ---
VICKI HOUSTON,[facility] [place] 06/16/16 0813: Subjective Follow-up For: Cellulitis right lower extremety Sepsis secondary to STrep bacteremia b/l lower extremeties wounds Depression CHF Subjective: Patient was seen and examined this morning, vital signs are stable, no overnight events reported by the nurse or the patient. No new complaints. Review of Systems Constitutional: Reports: see HPI. Objective Last 24 Hrs of Vital Signs/I&O Vital Signs Date Time Temp Pulse Resp B/P Pulse O2 O2 Flow FiO2 Ox Delivery Rate 06/16 0731 97.5 73 20 123/66 92 Room Air 06/16 0000 94 Nasal 2.0L Cannula 06/15 2311 98.0 73 20 121/55 93 Room Air 06/15 2024 94 Nasal 1.0L Cannula 06/15 1600 94 Nasal 1.0L Cannula 06/15 1449 98.3 79 18 134/68 93 Nasal 1.0L Cannula 06/15 0858 93 Nasal 1.0L Cannula Intake & Output 06/16 1600 06/16 0800 06/16 0000 Intake Total 340 580 Output Total 451 350 Balance -111 230 Intake, IV 100 100 Intake, Oral 240 480 Output, Stool 1 Output, Urine 450 350 Physical Exam General Appearance: Alert, Oriented X3, Cooperative, No Acute Distress Skin: No Rashes HEENT: Atraumatic, PERRLA, EOMI, Mucous Membr. moist/pink Cardiovascular: Regular Rate, Normal S1, Normal S2, No Murmurs Lungs: Clear to Auscultation, Normal Air Movement Abdomen: Normal Bowel Sounds, Soft, No Tenderness Neurological: Normal Gait, Normal Speech, Strength at 5/5 X4 Ext, Normal Tone, Sensation Intact, Cranial Nerves 3-12 NL, Reflexes 2+ Extremities: No Clubbing, No Cyanosis, No Edema, Normal Pulses Assessment/Plan Assessment: Patient is 70 year old female with PMH of CHF, rheumatoid arthritis, CAD, hypothyroidism, chronic pain syndrome, mood disorder, anxiety disorder, dysuria, major depressive disorder, COPD, pancreatitis, was brought from [facility] on 06/08/16 with chief complain of altered mental status and shivering. In ER, patient spiked a fever of 101 and was tachypenic, her labs were significant for leukocytosis of 19 and she had elevated lactic acid of 2.8. In ER, she was given Ceftriaxone, Azithromycin and Vancomycin in addition to loading dose of solumedrol and 40 IV lasix. Patient was initially admitted to ICU and then transferred to telemetry and finally landed in general medical floor yesterday. Imaging as inpatient CXR: Limited study with markedly low lung volumes and probable bibasilar atelectasis. There is central vascular congestion and I cannot exclude mild interstitial edema. X-ray of the left tibia and fibula negative for osteomyelitis. X-ray of the right ankle reveals indistinctness of the cortex of the medial malleolus and possible periosteal reaction, suspicious for osteomyelitis CTA of the chest no evidence of acute or chronic emboli; no focal consolidation; bibasilar atelectasis, right greater than left Problem list and plan #Right ankle cellulitis with possible underlying osteomyeltis and left tibial ulcers -Patient was initially started on Vancomycin, BC X 2 from 06/09/16 were significant for Beta Strep group B, Vanco was discontinued with and patient switched to Unasyn -Infectious disease consultation was obtained, thanks for recommendation -Unasyn to treat group B strep sepsis presimbly secondary to infection/necrotic right medial malleolar ulcer -Right foot wound culture is positive for MRSA, but pathology report is negative for osteomyelitis -Unasyn 3000 mg every 6 IV DAY#8 -Vancomycin 1 g IV every 12 DAY#1 to complete course of 4 weeks (until July 14) -Patient had debridement of right medial malleolus ulcer with bone biopsy, POD#4 -PICC line was placed -Continue to follow podiatry recommendation, patient is weightbearing as tolerated for physical therapy -Right leg wound dressing is good for [address] Rojas, patient will need dressing change on Saturday or Saturday -Wound care consultation was obtained for left leg venous stasis wound, recommendation for daily Xeroform leg elevation and a multilayer compression dressing. An Saeed wrap can be applied to her left leg. -Patient should follow up in wound center after discharge #Elevated troponins likely demand Ischemia -Patient complained of chest pressure on admission, troponins were elevated to 0.14, trended down to 0.11, no EKG changes appreciated -Cardiology consult service (Dr. Frank was on board) -Continue aspirin 81 mg daily #History of Diastolic Heart Failure -Continue to hold Lasix and spirinolactone, were held on admission, will continue upon discharge to avoid fluid overload -Cardiology recommendation where obtained, thanks for input -Echocardiogram was done on 06/10/16 Mild left ventricular enlargement. Low normal left ventricular systolic function. Left ventricular ejection fraction is estimated at 50-55%. Mild left atrial dilatation. Mild mitral regurgitation. Mild to moderate tricuspid regurgitation. Trace pulmonic regurgitation. 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 -Trended down 261<346 -AST and ALT within normal, where initially mildly elevated 57 and 78 respectively #History of Anxiety and Major depressive disorder -Continue home psych medication bupropion, imipramine (2 different doses 25 mg in the morning and 75 mg at bedtime), Venlafaxine, trazodone #History of Chornic pain -Patient has a history of neurostimulator in the back but nonfunctional -Continue Lyrica 75 mg BID and 300 at bed time -Dilaudid continue home dose of 4 mg by mouth every 4 when necessary -Morphine extendid release 30 mg BID #History of neurogenic bladder and interstitial cystitis -Continue Mirabegron 25 mg daily #History of rheumatoid arthritis -Continue Hydroxychloroquin 200 mg tab for RA #History of hypothyroidism -Continue levothyroxine 50 mcg for hypothyroidism #History of COPD and sleep apnea -Patient is not on home oxygen and refused CPAP in the past -Continue oxygen supplementation and taper oxygen to goal of SPO2 of more than 92% -Continue TRC -Continue Robitussin -Pulse oximetry without oxygen on rest was obtained today, oxygen saturation of 88% on room air resting -Nocturnal pulse oximetry on room air was obtained, patient had total of 1.5 hour desaturation episodes, couple of times patient went down to 85% saturation for greater than 5 minutes and was placed on 1 L oxygen -Recommendation for oxygen 2 L nocturnal and as needed -Chest x-ray on 06/13/16 revealed 1. Findings are consistent with mild pulmonary edema with associated small bilateral pleural effusions 2. Bibasilar subsegmental atelectasis -Incentive Spirometry was ordered -DVT prophylaxis subcutaneous heparin -Code DNR/DNI -Diet heart healthy -PT evaluation recommendation for short-term rehabilitation -Consultation cardiology, pulmonology, ID, vascular surgery, podiatry, wound care, PT -Patient is for discharge today to [facility] Problem List: 1. Sepsis 2. Bilateral leg ulcer Pain Ratin Pain Location: Lower abdominal pain Bilateral leg pain Pain Goal: Pain 4 or less Pain Plan: -Lyrica 75 mg BID and 300 at bed time -Dilaudid continue home dose of 4 mg by mouth every 4 when necessary -Morphine extendid release 30 mg BID Tomorrow's Labs & Rationales: None Consulting Request: Consulting Specialty: Thoracic/Vascular Surgery LUIS SAPPSHANTEL 06/16/16 1601: Attending MD Review Statement Attending Statement Attending MD Statement: examined this patient, discuss w/resident/PA/PRE PLANNING ADVISOR, agreed w/resident/PA/PRE PLANNING ADVISOR, reviewed EMR data (avail), discussed with nursing, discussed with case mgmt Attending Assessment/Plan: Patient's bone biopsy came back positive for MRSA. Patient being discharged to subacute rehabilitation on IV vancomycin 1 g every 12. We will DC her Unasyn. Discussed with infectious disease the care plan. Patient okay with the discharge plan. Please see the discharge summary for more details.
--- NOTE | 2016-06-16 12:17 | PN- Infect Dx ---
Subjective Subjective: Afebrile without complaints Objective Last 24 Hrs of Vital Signs/I&O Vital Signs Date Time Temp Pulse Resp B/P Pulse O2 O2 Flow FiO2 Ox Delivery Rate 06/16 0936 92 Nasal 1.0L Cannula 06/17 799 94 Nasal 1.0L Cannula 06/16 0731 97.5 73 20 123/66 92 Room Air 06/16 0000 94 Nasal 2.0L Cannula 06/15 2311 98.0 73 20 121/55 93 Room Air 06/154 94 Nasal 1.0L Cannula 06/15 1600 94 Nasal 1.0L Cannula 06/15 1449 98.3 79 18 134/68 93 Nasal 1.0L Cannula Intake & Output 06/16 1600 06/16 0800 06/16 0000 Intake Total 340 580 Output Total 451 350 Balance -111 230 Intake, IV 100 100 Intake, Oral 240 480 Output, Stool 1 Output, Urine 450 350 Physical Exam Other Physical Findings: She is comfortable in no acute distress Extremities right ankle ulcer clean; PICC in the right upper extremity in place Results Last 24 Hours of Lab Results: No labs from today Last 24 Hours of Gene Results: OR culture June 12 labeled right foot bone positive for MRSA Assessment/Plan Impression: Stable, with temperatures and white blood cell count remaining normal, on Unasyn now Day 8 of treatment for Group B strep sepsis secondary to infected right medial malleolar ulcer status post debridement and bone biopsy 4 days ago. Her bone culture from the OR is positive for MRSA, with no Group B strep isolated, perhaps due to the fact that she was on antibiotics for several days prior to this procedure; therefore, despite the negative bone biopsy, she will need to be treated for osteomyelitis. Suggestion: 1. Discontinue Unasyn 2. Begin Vancomycin 1 g IV every 12 hours to plan on 4 weeks of treatment ( until July 14) 3. She will need a weekly CBC, ESR, BUN/creatinine and Vancomycin trough level while on Vancomycin
[2016-06-16] MEDS ORDERED: VANCOMYCIN HCL1 G1 IV (13:54)
[2016-06-16 14:06] VITALS: BP 120/70
[2016-06-16 15:03] VITALS: BP 120/70
== END 2016-06-16 16:50 | DRG 853 ==
LOC: ENRESERVTM → ENRESERVDT → ERH 01:40 → 1NO 04:15 → 2NB 04:15 → ERHI 04:15 → ENPENDDIS 04:15 → 1NO 08:02 → CRI 08:04 → 1NO 06-10 16:01 → 2NB 06-12 18:50
PROVIDERS: Dermatology; Internal Medicine; Pediatrics; ADMIT Internal Medicine
PROC: 0QBG0ZX Excision of Right Tibia, Open Approach, Diagnostic (ICD-10-PCS; principal; 2016-06-12)
DX: A40.1 Sepsis due to streptococcus, group B (principal); G93.41 Metabolic encephalopathy; J96.01 Acute respiratory failure with hypoxia; E87.2 Acidosis; I11.0 Hypertensive heart disease with heart failure; I50.32 Chronic diastolic (congestive) heart failure; I24.8 Other forms of acute ischemic heart disease; Z68.42 Body mass index [BMI] 45.0-49.9, adult; L03.115 Cellulitis of right lower limb; J44.9 Chronic obstructive pulmonary disease, unspecified; L97.319 Non-pressure chronic ulcer of right ankle with unspecified severity; M86.8X7 Other osteomyelitis, ankle and foot; F31.9 Bipolar disorder, unspecified; I25.10 Atherosclerotic heart disease of native coronary artery without angina pectoris; E03.9 Hypothyroidism, unspecified; J45.909 Unspecified asthma, uncomplicated; I25.2 Old myocardial infarction; M06.9 Rheumatoid arthritis, unspecified; I87.2 Venous insufficiency (chronic) (peripheral); I73.9 Peripheral vascular disease, unspecified; M54.5 Low back pain; G89.4 Chronic pain syndrome; G47.33 Obstructive sleep apnea (adult) (pediatric); N31.9 Neuromuscular dysfunction of bladder, unspecified; N30.10 Interstitial cystitis (chronic) without hematuria; E66.9 Obesity, unspecified; Z86.711 Personal history of pulmonary embolism; Z87.891 Personal history of nicotine dependence
CPT/HCPCS: 1NP; 2NBP; 87070; 87075; 87184; CCU; 36415; 73590-LT; 73610-RT; 81003; 82436; 87040; 87086; 87147; 87804; 87804-59; 88307; 93005; 93010; 93306; 93925; 94799; 96365; 96366; 96375; 96376; 97112-GO; 97116-GO; 97162-GP; 97530-GO; 99291; C1769; J0131; J0696; J1644; J1940; J2001; J2930; J3370; J3490; J7040; J7060

== ENCOUNTER 2017-08-21 09:47 | Emergency (ER) | payer OTHER, MEDICARE ==
[~2017-08-21] VITALS: Ht 165.1 cm; Wt 99.3 kg
[~2017-08-21 09:47] MED LIST changes: +8 HOUR650 MG PO; +ACEPHEN650 M1 PR; +ASPIRIN EC81 M1 PO; +BISACODYL10 M1 RC; +DAILY MULTIPLE1 EACH PO; +DEXILANT60 M1 PO; +DILAUDID2 M1 PO; +DILAUDID4 M1 PO; +EFFEXOR XR150 M1 PO; +FLEET ENEMA133 ML RC; +FOLIC ACID0.8 M1 PO; +IMIPRAMINE HCL25 M1 PO; +IMIPRAMINE HCL50 M1 PO; +IPRATROPIUM BRO15 M1 NAS; +LASIX40 M1 PO; +LINZESS145 MC1 PO; +LYRICA150 M1 PO; +LYRICA300 M1 PO; +LYRICA75 M1 PO; +MILK OF MA400 MG/52 PO; +MONTELUKAST SOD10 M1 PO; +MORPHINE SULFAT30 M3 PO; +MYRBETRIQ25 M1 PO; +NYSTATIN15 G1 TOP; +OS-CAL 500+D31 EAC1 PO; +PLAQUENIL200 M1 PO; +POTASSIUM CHLO20 ME2 PO; +SENOKOT-S TABL1 EACH PO; +SIMBRINZA 1%-0.28 ML OU; +SYNTHROID50 MCG PO; +SYSTANE 0.3-0.415 ML OU; +TIZANIDINE HCL4 M2 PO; +TRAVATAN Z5 ML OD; +TRAZODONE HCL50 M1 PO; +TYLENOL325 M1 PO; +VANCOMYCIN HCL1 G1 IV; +VITAMIN D31000 UNI1 PO; +WELLBUTRIN XL150 M2 PO; +ZANAFLEX2 M2 PO; +ZYRTEC10 M3 PO
--- NOTE | 2017-08-21 09:59 | ED GENERAL ADULT ---
History of Present Illness General Chief Complaint: General Adult Stated Complaint: PAIN PUMP DRAINAGE Source: patient Exam Limitations: no limitations Vital Signs & Intake/Output Vital Signs & Intake/Output Vital Signs Date Time Temp Pulse Resp B/P B/P Pulse O2 O2 Flow FiO2 Mean Ox Delivery Rate 08/21 1810 98.0 92 18 135/63 97 Room Air 08/21 1428 99.0 88 18 120/53 95 Room Air 08/21 1227 97.7 83 18 117/59 97 Room Air 08/21 1027 97 Room Air 08/21 0952 97.8 74 18 112/51 97 Room Air Allergies Coded Allergies: adhesive tape (UNKNOWN 06/09/16) fluticasone furoate (From BREO ELLIPTA) (PER JUN FROM [place] 12/27/16) vilanterol (From BREO ELLIPTA) (PER JUN FROM [place] 12/27/16) Reconcile Medications Acetaminophen (8 Hour) 650 MG TABLET.ER 1 TAB PO Q4H PRN PAIN/TEMP>/101 ( Reported) Acetaminophen (Acephen) 650 MG SUPP.RECT 1 SUPP ND Q4H PRN PAIN/TEMP/>101 ( Reported) Aspirin (Ecotrin*) 81 MG TABLET.DR 1 TAB PO DAILY HEART/BLOOD (Reported) Bisacodyl 10 MG SUPP.RECT 1 SUP RC DAILY PRN CONSTIPATION (Reported) Brinzolamide (Azopt) 1 % DROPS.SUSP 1 GTT OPH BID EYE (Reported) Brinzolamide/Brimonidine Tart (Simbrinza 1%-0.2% Eye Drops) 1 %-0.2 % DROPS.SUSP 1 DROP OU BID BOTH EYES (Reported) Bupropion HCl (Wellbutrin XL) 150 MG TAB.ER.24H 1 TAB PO DAILY MENTAL HEALTH (Reported) Calcium Carbonate/Vitamin D3 (Os-David 500+D3 Caplet) 500 MG-200 TABLET 1 TAB PO DAILY SUPPLEMENT (Reported) Cephalexin (Keflex) 500 MG CAPSULE 1 CAP PO BID PREVENT INFECTION Cetirizine HCl (Zyrtec) 10 MG TABLET 1 TAB PO QHS ALLERGIES (Reported) Cholecalciferol (Vitamin D3) (Vitamin D3) 1,000 UNIT CAPSULE 1 CAP PO DAILY SUPPLEMENT (Reported) Dexlansoprazole (Dexilant) 60 MG CAP.BP 1 CAP PO DAILY GI (Reported) Folic Acid 0.8 MG CAPSULE 1 CAP PO DAILY SUPPLEMENT (Reported) Furosemide (Lasix) 40 MG TABLET 1 TAB PO DAILY DIURETIC (Reported) Hydromorphone HCl (Dilaudid) 2 MG TABLET 1 TAB PO Q8P PRN PAIN (Reported) Hydroxychlorquine (Plaquenil) 200 MG TABLET 100 MG PO DAILY UNKNOWN (Reported ) Imipramine HCl 50 MG TABLET 75 MG PO QHS UNKNOWN (Reported) Imipramine HCl 25 MG TABLET 1 TAB PO QAM UNKNOWN (Reported) Ipratropium [place] 42 MCG (0.06 %) SPRAY 2 SPRAY HAKAN BID UNKNOWN (Reported) Levothyroxine Sodium (Synthroid) 50 MCG TABLET 1 TAB PO DAILY AC THYROID ( Reported) Linaclotide (Linzess) 145 MCG CAPSULE 1 CAP PO DAILY GI (Reported) Mirabegron (Myrbetriq) 25 MG TAB.ER.24H 1 TAB PO DAILY BLADDER (Reported) Mometasone Furoate (Nasonex) 50 MCG SPRAY.PUMP 2 SPRAY [place] DAILY ALLERGIES ( Reported) Montelukast Sodium 10 MG TABLET 1 TAB PO QHS ALLERGIES (Reported) Morphine Sulfate (Morphine Sulfate ER) 30 MG TABLET.ER 1 TAB PO Q12H PAIN ( Reported) Multivitamin (Daily Multiple Vitamin) 1 EACH TABLET 1 TAB PO DAILY SUPPLEMENT (Reported) Na Phos,M-B/Na Phos,Di-Ba (Fleet Enema) 19 GRAM-7 GRAM/118 ML ENEMA 1 E RC DAILY PRN CONSTIPATION (Reported) Polyethylene Glycol 3350 (Gavilax) 17 GRAM POWD.PACK 17 GM PO DAILY CONSTIPATION (Reported) Potassium Chloride 20 MEQ TAB.ER.PRT 1 TAB PO DAILY SUPPLEMENT (Reported) Pregabalin (Lyrica) 300 MG CAPSULE 1 CAP PO AT BEDTIME NEUROPATHY (Reported) Pregabalin (Lyrica) 150 MG CAPSULE 1 CAP PO BID NEUROPATHY (Reported) Spironolactone (Aldactone) 25 MG TABLET 1 TAB PO QHS DIURETIC (Reported) Tizanidine HCl (Zanaflex) 2 MG CAPSULE 1 CAP PO BID MUSCLE RELAXANT (Reported ) Travoprost (Travatan Z) 0.004 % DROPS 1 GTT OD QHS RIGHT EYE (Reported) Trazodone HCl 50 MG TABLET 150 MG PO QHS UNKNOWN (Reported) Venlafaxine HCl (Effexor XR) 150 MG CAP.ER.24H 2 CAP PO DAILY DEPRESSION ( Reported) Triage Note: PT BIBA FROM [facility] FOR DRAINAGE COMING FROM RIGHT LOWER BACK. PT HAD PAIN PUMP REMOVED ON THE 10TH OF THIS MONTH. PT IS A/O AT THIS TIME. PT STATES THE PAIN PUMP WAS NOT WORKING SO THEY REMOVED IT. Triage Nurses Notes Reviewed? yes Onset: Abrupt Duration: day(s): Timing: recent history HPI: 08/21/17 11:42 AM 71-year-old female status post morphine pain pump removed on 08/15/[address] Karissa Curiel at [facility]. She has been complaining of clear fluid leaking from the incision. I spoke to Dr. Curiel (the patient's neurosurgeon and informed him of the complication). The patient had no fever. Does admit to mild headache. Labs were ordered. Past History Travel History Traveled to [place] past 21 day No Medical History Any Pertinent Medical History? see below for history Neurological: NONE EENT: cataracts Cardiovascular: CAD, CHF, chronic venous insuff, hypertension, myocardial infarction, PVD, SVT Respiratory: asthma, COPD, obstructive sleep apnea, pulmonary embolism Gastrointestinal: pancreatitis Hepatic: NONE Renal: OVERACTIVE BLADDER interstitial cystitis Musculoskeletal: chronic back pain, rheumatoid arthritis Psychiatric: bipolar disease Endocrine: hypothyroidism Blood Disorders: DVT Cancer(s): NONE COMMUNITY HE[employer] WORKER/Reproductive: NONE Other Medical Hx: glaucoma History of MRSA: Yes History of VRE: No History of CDIFF: No Surgical History Surgical History: appendectomy, cholecystectomy, knee replacement (right), s/p lumbar discectomy s/p IVC filter Psychosocial History Who do you live with Patient/Self Services at Home lives in prison What is your primary language Scottish Tobacco Use: Quit >30 days ago ETOH Use: denies use Illicit Drug Use: denies illicit drug use Family History Family History, If Any: MOTHER FH: diabetes mellitus FHx: heart disease Hx Contributory? No Review of Systems Review of Systems Constitutional: Denies: fever. EENTM: Reports: no symptoms. Cardiovascular: Denies: chest pain. GI: Denies: abdominal pain. Genitourinary: Reports: no symptoms. Musculoskeletal: Reports: back pain (chronic). Skin: Denies: rash. Hematologic/Endocrine: Reports: see HPI, bruising. Immunologic/Allergic: Reports: no symptoms (no diabetes). Physical Exam Physical Exam General Appearance: alert, awake, anxious, mild distress Head: atraumatic, normal appearance Eyes: Bilateral: normal appearance, PERRL, EOMI. Ears, Nose, Throat: normal pharynx, normal ENT inspection Neck: normal inspection, supple Respiratory: normal breath sounds, chest non-tender Cardiovascular: regular rate/rhythm Peripheral Pulses: 4+ radial (R), 4+ radial (L) Gastrointestinal: non-tender Back: sutured wound over lower back, the areas clean. No evidence of erythema. Extremities: normal inspection Neurologic/Psych: no motor/sensory deficits, awake, alert, oriented x 3 Skin: intact, normal color, warm/dry, see below Comments: The patient has a clean sutured wound on her lower back. Pressure from the inferior aspect of the wound revealed clear discharge. The wound was nontender. Core Measures ACS in differential dx? No CVA/TIA Diagnosis: No Sepsis Present: No Sepsis Focused Exam Completed? No Progress Differential Diagnoses I considered the following diagnoses in my evaluation of the patient: [Abscess, wound infection, CSF leak, wound dehiscence] Plan of Care: Orders Procedure Date/time Status TRUNK AREA CULTURE 08/21 1227 Active COMPREHENSIVE METABOLIC PANEL 08/21 1227 Complete CBC WITHOUT DIFFERENTIAL 08/21 1227 Complete Saline Lock 08/21 1226 Active Laboratory Tests 08/21/17 1237: Anion Gap 13, Estimated GFR > 60, BUN/Creatinine Ratio 22.5, Glucose 98, Calcium 9.3, Total Bilirubin 0.3, AST 14, ALT 18, Alkaline Phosphatase 107, Total Protein 7.7, Albumin 4.0, Globulin 3.7, Albumin/Globulin Ratio 1.1, CBC w Diff NO MAN DIFF REQ, RBC 5.29, MCV 77.2 L, MCH 24.7 L, MCHC 32.0 L, RDW 18.0 H, MPV 8.6, Gran % 60.5, Lymphocytes % 24.5, Monocytes % 5.7, Eosinophils % 9.0 H, Basophils % 0.3, Absolute Granulocytes 4.0, Absolute Lymphocytes 1.6, Absolute Monocytes 0.4, Absolute Eosinophils 0.6, Absolute Basophils 0 Microbiology 08/21 1231 TRUNK: Culture & Sensitivity - RES 08/21 123 TRUNK: Gram Stain - RES Initial ED EKG: none Departure Departure Disposition: ACUTE REHAB FACILITY Condition: Stable Clinical Impression Primary Impression: Postoperative CSF leak Referrals: Sera Ramires MD (PCP/Family) Departure Forms: Customer Survey General Discharge Information Prescriptions: Current Visit Scripts Cephalexin (Keflex) 1 CAP PO BID #20 CAP Comments The lab results and physical findings were discussed with the patient's neurosurgeon Dr. curiel, who performed the procedure. He instructed me to place 2 sutures under sterile technique at the site, applied tissue glue and a sterile dressing. He will make arrangements to reevaluate the patient on Saturday. I reviewed the plan of care with the patient. She will be in a well supervised setting. She will return immediately should the headache at worse. Should she develop fever, vomiting, or pain from the site. I clarified that the instructions with Dr Curiel, We will follow the patient closely. [phone] Critical Care Note Critical Care Note Critical Care Time: non-applicable
[2017-08-21] MEDS ORDERED: AZOPT10 ML OPH (10:15)
[2017-08-21] MEDS ORDERED: GAVILAX17 GM PO (10:19)
[2017-08-21] MEDS ORDERED: NASONEX17 GM NASB (10:21)
[2017-08-21 12:50] LABS: ABSOLUTE BASOPHIL COUNT 0 /CUMM (0.0-0.2); ABSOLUTE EOSINOPHIL COUNT 0.6 /CUMM (0.0-0.7); ABSOLUTE LYMPH COUNT 1.6 /CUMM (1.2-3.4); ABSOLUTE MONOCYTE COUNT 0.4 /CUMM (0.10-0.60); BASOPHIL % 0.3 % (0.0-2.0); HEMATOCRIT 40.8 % (37-47); MEAN CORPUSCULAR HGB 24.7 PG (27.0-31.0); MEAN CORPUSCULAR VOLUME 77.2 FL (81.0-99.0); MEAN PLATELET VOLUME 8.6 FL (7.4-10.4); PLATELET COUNT 254 /CUMM (130-400); RED BLOOD CELL CT 5.29 /CUMM (4.20-5.40); WHITE BLOOD CELL COUNT 6.6 /CUMM (4.8-10.8)
[2017-08-21 12:51] LABS: GRANULOCYTE % 60.5 % (42.2-75.2)
[2017-08-21 18:10] VITALS: BP 135/63
[2017-08-21] MEDS ORDERED: KEFLEX500 M1 PO (19:13)
== END 2017-08-21 18:05 ==
LOC: ERH 09:47
PROVIDERS: Emergency Medicine
DX: G96.0 Cerebrospinal fluid leak (principal)
CPT/HCPCS: 87070; 96374; 96376; J2001; J2405